=== PATIENT | female | born 1985 | race Caucasian/White ===

== ENCOUNTER 2022-03-23 15:11 | Observation (INO) | payer OTHER ==
[2022-03-23] MEDS ORDERED: ASPIRIN 81 MG PO STA (15:22)
--- NOTE | 2022-03-23 15:37 | ED ---
Chest Pain HPI - General Chief Complaint: Chest Pain Stated Complaint: chest pain Time Seen by Provider: 03/23/22 15:11 Source: patient, EMS, RN notes reviewed Mode of arrival: EMS Limitations: no limitations - History of Present Illness Initial Comments: 36-year-old female with a family history of heart disease but no personal history who states she had an episode prior to arrival of burning midsternal chest pain sweats with nausea vomiting also palpitations. She was brought in by EMS from local care home. She's been incarcerated for 30 days. She has any drugs or alcohol use prior to this. She is a former smoker. Patient states that she is feeling somewhat improved this time per paramedics she did have what appeared to be bigeminy with the patient is not familiar with ever been diagnosed with in the past. MD Complaint: chest pain, other - Related Data Home Medications Medication Instructions Recorded Confirmed Aspirin EC [Ecotrin Low Dose] 81 mg PO DAILY 03/23/22 03/23/22 Metoprolol Tartrate [Lopressor] 12.5 mg PO BID 03/23/22 03/23/22 clindamycin HCL 300 mg PO TID 03/23/22 03/23/22 lisinopriL [Zestril] 10 mg PO HS 03/23/22 03/23/22 Allergies Allergy/AdvReac Type Severity Reaction Status Date / Time codeine Allergy Swelling Verified 03/23/22 16:18 levofloxacin [From Levaquin] Allergy Unknown Verified 03/23/22 16:18 Penicillins Allergy Rash/Hives Verified 03/23/22 16:18 Sulfa (Sulfonamide Allergy Rash/Hives Verified 03/23/22 16:18 Antibiotics) Review of Systems ROS Statement: Those systems with pertinent positive or pertinent negative responses have been documented in the HPI. ROS Other: All systems not noted in ROS Statement are negative. Past Medical History Past Medical History: No Reported History History of Any Multi-Drug Resistant Organisms: None Reported Past Surgical History: Cholecystectomy Past Psychological History: ADD/ADHD, Anxiety, Depression Smoking Status: Former smoker Past Alcohol Use History: None Reported Past Drug Use History: Opiates General Exam - General Exam Comments Initial Comments: This is a well-developed well-nourished awake alert oriented 4 female Limitations: no limitations General appearance: alert, anxious Head exam: Present: atraumatic, normocephalic, normal inspection Eye exam: Present: normal appearance, PERRL, EOMI. Absent: scleral icterus, conjunctival injection, periorbital swelling ENT exam: Present: normal exam, mucous membranes moist Neck exam: Present: normal inspection, full ROM, other (No stridor JVD or bruits). Absent: tenderness, meningismus, lymphadenopathy Respiratory exam: Present: normal lung sounds bilaterally, chest wall tenderness (Tenderness palpation on the xiphoid and costal sternal margins no step-off or crepitation.). Absent: respiratory distress, wheezes, rales, rhonchi, stridor Cardiovascular Exam: Present: irregular rhythm. Absent: systolic murmur, diastolic murmur, rubs, gallop, clicks GI/Abdominal exam: Present: soft, normal bowel sounds. Absent: distended, tenderness, guarding, rebound, rigid Extremities exam: Present: normal inspection, full ROM, normal capillary refill. Absent: tenderness, pedal edema, joint swelling, calf tenderness Back exam: Present: normal inspection Neurological exam: Present: alert, oriented X3, CN II-XII intact Psychiatric exam: Present: normal affect, normal mood Skin exam: Present: warm, dry, intact, normal color. Absent: rash Course Vital Signs 03/23/22 15:13 Temperature 98.7 F Pulse Rate 83 Respiratory 18 Rate Blood Pressure 119/88 O2 Sat by Pulse 100 Oximetry Chest Pain MDM - MDM Imaging reviewed no acute findings. I did a long session with the patient regarding findings also with Dr. Wynn from the [facility] [place] [facility]. Patient will be admitted for inpatient evaluation treatment of chest pain Onset bigeminy cardiology will be consulted. Disposition Clinical Impression: Chest pain, Bigeminy Disposition: ADMITTED IP TO THIS HOSP Condition: Fair [facility]errals[facility] - 1-2 days Decision Date: 03/23/22 Decision Time: 17:30
--- NOTE | 2022-03-23 16:03 | XR ---
EXAMINATION TYPE: XR chest 2V DATE OF EXAM: 03/23/2022 COMPARISON: NONE HISTORY: Chest pain TECHNIQUE: 2 views FINDINGS: Heart and mediastinum are normal. Lungs are clear. Diaphragm is normal. Bony thorax is norm al. IMPRESSION: Normal chest.
[2022-03-23 16:10] LABS: Basophils # (A) 0.1 k/uL (0-0.2); Basophils % (A) 1 %; Eosinophils # (A) 0.3 k/uL (0-0.7); Eosinophils % (A) 3 %; HCT 37.6 % (34.0-46.0); HGB 12.2 gm/dL (11.4-16.0); Hypochromasia Slight; Lymphocytes # (A) 2.3 k/uL (1.0-4.8); Lymphocytes % (A) 21 %; MCH 28.3 pg (25.0-35.0); MCHC 32.4 g/dL (31.0-37.0); MCV 87.3 fL (80.0-100.0); Mean Platelet Volume 7.7; Monocytes # (A) 0.5 k/uL (0-1.0); Monocytes % (A) 4 %; Neutrophils # (A) 7.6 k/uL (1.3-7.7); Neutrophils % (A) 69 %; Platelet Count 438 k/uL (150-450); RDW 14.7 % (11.5-15.5); WBC 10.9 k/uL (3.8-10.6)
[2022-03-23 16:21] LABS: ALT 17 U/L (4-34); AST 29 U/L (14-36); African American GFR (CKD) >90 (>60 ml/min/1.73 sqM); Albumin 4.3 g/dL (3.5-5.0); Alkaline Phosphatase 50 U/L (38-126); Anion Gap 6 mmol/L; Blood Urea Nitrogen 13 mg/dL (7-17); Calcium 9.3 mg/dL (8.4-10.2); Carbon Dioxide 24 mmol/L (22-30); Chloride 106 mmol/L (98-107); Glucose 92 mg/dL (74-99); Lipase 184 U/L (23-300); Magnesium 2.1 mg/dL (1.6-2.3); Non-African American GFR(CKD) >90 (>60 ml/min/1.73 sqM); Sodium 136 mmol/L (137-145); Total Bilirubin 0.5 mg/dL (0.2-1.3); Total Protein 7.1 g/dL (6.3-8.2)
[2022-03-23 16:24] LABS: Partial Thromboplastin Time 23.4 sec (22.0-30.0); Prothrombin Time 10.5 sec (9.0-12.0)
[2022-03-23] MEDS ORDERED: NITROGLYCERIN SL TABS 0.4 MG TAB SUBLINGUAL PRN (17:43)
--- NOTE | 2022-03-23 18:19 | P.HPIM ---
History of Present Illness Chief Complaint: Chest pain and palpitations This is a very pleasant 36-year-old female who was brought to emergency [place] for evaluation of chest pain and palpitation Patient has no significant past medical history except hypertension and being on lisinopril. Patient was reporting retrosternal burning-like chest pain without radiation. Associated with some sweats and nausea no radiation of the pain. Last a few minutes. Also she's been experiencing some upper dictations. No particular provoking or alleviating factors for this. Patient stated that she's been having palpitations in the past and was prescribed metoprolol but she never took it. Patient stated that she was okay for a while but in the last few weeks she's been experiencing those. No syncopal episodein his leg swelling no shortness of breath no cough no fever. Patient is currently in the local care home the last 1 month. Denies any alcohol drug use. Has extensive family history of cardiac diseases but no personal history of this. She was never had a stress test echo or cardiological evaluation. She was referred to pharmacy clinical specialist in the past due to palpitations but never followed up. Here her vital signs stable EKG with some bigeminy otherwise no acute changes; electrolyte panel normal d-dimer normal troponin 1 normal chest x-ray without acute changes. Past Medical History Past Medical History: No Reported History History of Any Multi-Drug Resistant Organisms: None Reported Past Surgical History: Cholecystectomy Past Psychological History: ADD/ADHD, Anxiety, Depression Smoking Status: Former smoker Past Alcohol Use History: None Reported Past Drug Use History: Opiates Medications and Allergies Home Medications Medication Instructions Recorded Confirmed Type Aspirin EC [Ecotrin Low Dose] 81 mg PO DAILY 03/23/22 03/23/22 History Metoprolol Tartrate [Lopressor] 12.5 mg PO BID 03/23/22 03/23/22 History clindamycin HCL 300 mg PO TID 03/23/22 03/23/22 History lisinopriL [Zestril] 10 mg PO HS 03/23/22 03/23/22 History Allergies Allergy/AdvReac Type Severity Reaction Status Date / Time codeine Allergy Swelling Verified 03/23/22 16:18 levofloxacin [From Levaquin] Allergy Unknown Verified 03/23/22 16:18 Penicillins Allergy Rash/Hives Verified 03/23/22 16:18 Sulfa (Sulfonamide Allergy Rash/Hives Verified 03/23/22 16:18 Antibiotics) Physical Exam Vitals: Vital Signs Temp Pulse Resp BP Pulse Ox 03/23/22 15:13 98.7 F 83 18 119/88 100 Intake and Output 03/23/22 03/23/22 03/23/22 06:59 14:59 22:59 Other: Weight 74.843 kg Awake alert oriented 3, no acute distress Head and neck: Anicteric sclera, extraocular movements intact, no facial asymmetry, oropharyngeal mucosa is moist without any lesions, neck is supple without rigidity, no neck masses or neck vein distention Heart: Regular rhythm and rate, S1, S2; no murmurs rubs or gallops Lungs: Breath sounds present bilateral, no wheezing, rhonchi or crackles Abdomen: Bowel sounds present throughout, abdomen is soft, nontender, nondistended, no involuntary guarding, no hernias or organomegaly, no flank tenderness Extremities: No peripheral edema, no cyanosis, warm well perfused with palpable dorsalis pedis pulses bilateral and good capillary refill, without joint swelling or deformities Muscular skeletal: No joint swelling Skin: No rashes Neurological: No focal deficits awake alert oriented 3 Results CBC & Chem 7: 03/23/22 15:46 03/23/22 15:46 Labs: Abnormal Lab Results - Last 24 Hours (Table) 03/23/22 03/23/22 Range/Units 15:46 15:46 WBC 10.9 H (3.8-10.6) k/uL Sodium 136 L (137-145) mmol/L Assessment and Plan Assessment: #Atypical chest pain EKG with some bigeminy, normal troponin 1, normal d-dimer, chest x-ray normal Extensive family history of coronary artery disease Obtain echocardiogram, keep on telemetry Repeat troponin Cardiology consultation #Palpitations EKG with some bigeminy Patient has history of this and was referred to cardiology but never followed up Continue metoprolol Workup as above Keep on telemetry Ordered TSH Drug screen DVT prophylaxis: Subcu heparin Admitted under observation
[2022-03-23] MEDS ORDERED: lisinopriL 10 MG TAB PO SCH (21:00)
[2022-03-23] MEDS: METOPROLOL TARTRATE 12.5 MG TAB PO SCH (21:06)
[2022-03-23] MEDS: traZODone HCL 50 MG TAB PO SCH (21:06)
[2022-03-23] MEDS ORDERED: ONDANSETRON 4 MG/2 ML VIAL IVP STA (22:20)
[2022-03-23] MEDS: CLINDAMYCIN 150 MG CAP PO SCH (22:34)
[2022-03-24] MEDS ORDERED: ASPIRIN 325 MG TAB PO SCH (09:00)
[2022-03-24 09:14] LABS: Chol/HDL Ratio 4.12 Ratio; LDL Cholesterol,Calculated 101.3 mg/dL (0.0-131.0)
[2022-03-24] MEDS: METOPROLOL TARTRATE 12.5 MG TAB PO SCH ×2 (09:29→21:35)
--- NOTE | 2022-03-24 09:34 | P.CRDCN ---
History of Present Illness History of present illness: This is Dr. 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 and has been treated with low-dose beta blockers Patient on clindamycin 300 mg 3 times a day at home, unclear about the reason at this time Also on Zestril 10 mg daily at bedtime and metoprolol 12.5 mg by mouth twice a day Likely history of hypertension, patient on lisinopril Not taking metoprolol that was prescribed by her PCP Normal cardiac enzymes [address] segment abnormalities on EKG Asymptomatic when I examined her Mildly elevated triglycerides of 213 Normal TSH PLAN: IV fluids Stop aspirin Reduce the dose of lisinopril to 5 mg by mouth daily as an outpatient Hold off on lisinopril for now and watch her blood pressure for the next 24 hour s She may eat a normal diet 2-D echo and Doppler study today HPI For the last 5 months, the patient has been complaining of palpitations and dizzy spells She came to the emergency brought in from the local group home She been incarcerated for 30 days According to the note she complained of midsternal chest discomfort Swets nausea vomiting and palpitations She stated she was dizzy lightheaded and near syncopal ROS: No fever chills or rigors, no cough, phlegm or expectoration, no nausea, vomiting or diarrhea, no hematuria, dysuria, no musculoskeletal complaints, no strokes or seizures, no skin lesions. EXAMINATION: Blood pressure 91/62 mmHg then 123/87 Heart sounds are irregular Sounds are clear No murmurs No JVD Patient looks very comfortable and is not in any distress at all while having bigeminal PVCs REVIEW OF LABS, ECG & MEDICAL DATA Chest x-ray normal Twelve-lead EKG shows sinus mechanism with ventricular bigeminy Right ventricular outflow tract PVCs rsr" PVC morphology in lead 1 Upright in the inferior leads, tall Transition between V3 and V4 Extremely subtle notching at the end of the normal QRS in lead V1 and V2 No clear-cut QRS fractionation in the normal QRS Labs reviewed D-dimer normal Electrolytes normal Troponins normal 3 TSH 2.3 LDL 101, total 190, Triglycerides 213 Normal Renal Function White Count of the Upper Limits of Normal but Afebrile Past Medical History Past Medical History: No Reported History History of Any Multi-Drug Resistant Organisms: None Reported Past Surgical History: Cholecystectomy Past Psychological History: ADD/ADHD, Anxiety, Depression Smoking Status: Former smoker Past Alcohol Use History: None Reported Past Drug Use History: Opiates Medications and Allergies Home Medications Medication Instructions Recorded Confirmed Type Aspirin EC [Ecotrin Low Dose] 81 mg PO DAILY 03/23/22 03/23/22 History Metoprolol Tartrate [Lopressor] 12.5 mg PO BID 03/23/22 03/23/22 History clindamycin HCL 300 mg PO TID 03/23/22 03/23/22 History lisinopriL [Zestril] 10 mg PO HS 03/23/22 03/23/22 History Allergies Allergy/AdvReac Type Severity Reaction Status Date / Time codeine Allergy Swelling Verified 03/23/22 16:18 levofloxacin [From Levaquin] Allergy Unknown Verified 03/23/22 16:18 Penicillins Allergy Rash/Hives Verified 03/23/22 16:18 Sulfa (Sulfonamide Allergy Rash/Hives Verified 03/23/22 16:18 Antibiotics) Physical Exam Vitals: Vital Signs Temp Pulse Pulse Resp BP BP Pulse Ox 03/24/22 08:16 98.3 F 83 16 103/65 98 03/24/22 04:40 97.8 F 81 18 91/62 97 03/23/22 23:16 87 03/23/22 20:47 90 18 123/87 98 03/23/22 15:13 98.7 F 83 18 119/88 100 Intake and Output 03/23/22 03/24/22 03/24/22 22:59 06:59 14:59 Other: # Voids 1 Weight 74.843 kg Results 03/23/22 15:46 03/23/22 15:46 Cardiac Enzymes 03/23/22 03/23/22 03/23/22 Range/Units 15:46 15:46 18:03 AST 29 (14-36) U/L Troponin I <0.012 0.021 (0.000-0.034) ng/mL 03/23/22 Range/Units 21:46 AST (14-36) U/L Troponin I 0.021 (0.000-0.034) ng/mL Coagulation 03/23/22 Range/Units 15:46 PT 10.5 (9.0-12.0) sec APTT 23.4 (22.0-30.0) sec Lipids 03/23/22 Range/Units 15:46 Triglycerides 213.00 H (0.00-149.00) mg/dL Cholesterol 190.00 (0.00-200.00) mg/dL HDL Cholesterol 46.10 (40.00-60.00) mg/dL Cholesterol/HDL Ratio 4.12 Ratio CBC 03/23/22 Range/Units 15:46 WBC 10.9 H (3.8-10.6) k/uL RBC 4.30 (3.80-5.40) m/uL Hgb 12.2 (11.4-16.0) gm/dL Hct 37.6 (34.0-46.0) % Plt Count 438 (150-450) k/uL Comprehensive Metabolic Panel 03/23/22 Range/Units 15:46 Sodium 136 L (137-145) mmol/L Potassium 5.0 (3.5-5.1) mmol/L Chloride 106 (98-107) mmol/L Carbon Dioxide 24 (22-30) mmol/L BUN 13 (7-17) mg/dL Creatinine 0.68 (0.52-1.04) mg/dL Glucose 92 (74-99) mg/dL Calcium 9.3 (8.4-10.2) mg/dL AST 29 (14-36) U/L ALT 17 (4-34) U/L Alkaline Phosphatase 50 (38-126) U/L Total Protein 7.1 (6.3-8.2) g/dL Albumin 4.3 (3.5-5.0) g/dL Current Medications Generic Name Dose Route Start Last Admin Trade Name Freq PRN Reason Stop Dose Admin Clindamycin HCl 300 mg 03/23/22 22:00 03/23/22 22:34 Clindamycin 150 Mg Cap PO Not Given TID WALLACE Metoprolol Tartrate 12.5 mg 03/23/22 21:00 03/24/22 09:29 Metoprolol Tartrate 12.5 Mg Tab PO 12.5 mg BID WALLACE Administration Trazodone HCl 50 mg 03/23/22 21:00 03/23/22 21:06 Trazodone Hcl 50 Mg Tab PO 50 mg HS WALLACE Administration Intake and Output 03/23/22 03/24/22 03/24/22 22:59 06:59 14:59 Other: # Voids 1 Weight 74.843 kg 03/23/22 15:46 03/23/22 15:46
--- NOTE | 2022-03-24 10:17 | CA ---
Transthoracic Echo Report Name: Reshma Agarwal Age: 36 Gender: F : 1985 Exam Date: 03/24/2022 08:11 Exam Location: [facility] Ht (in): 64 Wt (lb): 165 Ordering Physician: Freddy Forman MD Attending/Referring Phys: Pre School Manager Marina Calderon RDCS Procedure CPT: Indications: Chest pain, new onset bigeminy Cardiac Hx: Technical Quality: Fair Contrast 1: Total Dose (mL): Contrast 2: Total Dose (mL): MEASUREMENTS (Male / Female) Normal Values 2D ECHO LV Diastolic Diameter PLAX 3.5 cm 4.2 - 5.9 / 3.9 - 5.3 cm LV Systolic Diameter PLAX 2.3 cm IVS Diastolic Thickness 1.4 cm 0.6 - 1.0 / 0.6 - 0.9 cm LVPW Diastolic Thickness 1.5 cm 0.6 - 1.0 / 0.6 - 0.9 cm LV Relative Wall Thickness 0.8 RV Internal Dim ED PLAX 2.5 cm LA Volume 30.6 cm??? 18 - 58 / 22 - 52 cm??? M-MODE Aortic Root Diameter MM 2.9 cm LA Systolic Diameter MM 3.3 cm LA Ao Ratio MM 1.1 AV Cusp Separation MM 1.5 cm DOPPLER AV Peak Velocity 123.1 cm/s AV Peak Gradient 6.1 mmHg LVOT Peak Velocity 75.7 cm/s LVOT Peak Gradient 2.3 mmHg MV Area PHT 2.7 cm??? Mitral E Point Velocity 54.9 cm/s Mitral A Point Velocity 76.5 cm/s Mitral E to A Ratio 0.7 MV Deceleration Time 285.9 ms MV E' Velocity 7.2 cm/s Mitral E to MV E' Ratio 7.7 TR Peak Velocity 209.1 cm/s TR Peak Gradient 17.5 mmHg Right Ventricular Systolic Press 22.5 mmHg FINDINGS Left Ventricle Moderately increased left ventricular wall thickness. Normal left ventricular systolic function with no obvious regional wall motion abnormalities. Left ventricular ejection fraction is estimated at 55-60 %. Right Ventricle Normal right ventricular size and function. Right ventricular systolic pressure within normal limits. Right Atrium Normal right atrial size. Left Atrium Normal left atrial size. No evidence for an atrial septal defect. Mitral Valve Structurally normal mitral valve. No evidence for mitral valve prolapse. No mitral stenosis. No mitral regurgitation. Aortic Valve Trileaflet aortic valve. No aortic valve stenosis or regurgitation. Tricuspid Valve Structurally normal tricuspid valve. Mild tricuspid regurgitation. Pulmonic Valve Structurally normal pulmonic valve. Trace pulmonic regurgitation. Pericardium No pericardial effusion. Aorta Normal size aortic root and proximal ascending aorta. CONCLUSIONS Normal LV size and systolic function with left ventricle hypertrophy, mild Right ventricular size and function is normal Previewed by: Dr. Kb Sanon MD (Electronically Signed) Final Date: 24 March 2022 10:16
[2022-03-24] MEDS: CLINDAMYCIN 150 MG CAP PO SCH ×3 (10:51→21:35)
[2022-03-24] MEDS ORDERED: MAG HYDROX/AL HYDROX/SIMETH 30 ML, HYOSCYAMINE ELIXIR 10 ML, LIDOCAINE VISCOUS 2% 10 ML PO ONE ×3 (11:22)
[2022-03-24 11:58] LABS: Amphetamine Screen,Urine Not Detected (NotDetected); Barbiturate Screen,Urine Not Detected (NotDetected); Benzodiazepines Screen,Urine Not Detected (NotDetected); Cocaine Screen,Urine Not Detected (NotDetected); Methadone Screen, Urine Not Detected (NotDetected); Opiate Screen,Urine Not Detected (NotDetected); Oxycodone Screen, Urine Not Detected (NotDetected); Phencyclidine Screen,Urine Not Detected (NotDetected); Tricyclic Antidepressant,Urine Not Detected (NotDetected); Urn Cannabinoid Scrn Not Detected (NotDetected)
[2022-03-24] MEDS: FENOFIBRATE 160 MG TAB PO SCH (12:28)
--- NOTE | 2022-03-24 16:32 | P.PN ---
Subjective Progress Note Date: 03/24/22 Hospital course: Patient is a 36-year-old female with a past medical history of frequent PVCs/bigeminy on low-dose beta lex metoprolol and hypertension. She presented to the emergency department via EMS in custody of [facility] on 03/23/22 with a chief complaint of midsternal burning/chest pain accompanied by nausea, diaphoresis, vomiting, and palpitations. She underwent full evaluation in the emergency department. EKG revealed sinus rhythm with frequent PVCs bigeminyat 87 bpm.CBC unremarkable with the exception of mild leukocytosis with WBC count of 10.9. CMP unremarkable. Troponin negative at less than 0.012. Patient admitted under our services to observation unit with consultation to cardiology. troponins trended overnightresulting at less than 0.012, 0.021, and 0.021. Lipid profile resulting with elevated triglycerides at 213 and VLDL of 42.60. Urine drug screen negative. Awaiting urine hCG results.patient continues to report burning to midsternal chest, GI cocktail administered 1 dose in which patient reports full resolution of previously reported burning pain however she reports pain remains to midsternal chest described as a dull ache almost like a bruise. Cardiology adjusting patient's medications decreasing lisinopril to 5 mg daily and recommending patient's BP and telemetry be monitored for an additional 24 hours. Physical exam: Vital signs reviewed and stable. General: Nontoxic, no distress and appears stated age. Derm: Skin warm and dry, normal coloration for ethnicity. Head: Atraumatic, normocephalic and symmetric. Eyes: EOMs intact, no lid lag, and anicteric sclera Mouth: no lip lesions, mucus membranes moist Cardiovascular: regular rate and rhythm with normal S1S2, no murmur, positive posterior tibial pulses bilaterally, and cap refill < 2 seconds. Lungs: Respirations even, regular, and unlabored on room air. Lungs CTA bi laterally, no rhonchi, no rales, no wheezing, and no accessory muscle usage. Abdominal: soft, nontender to palpation, no guarding, no appreciable organomegaly Ext: ROM intact. No gross muscle atrophy, no edema, no contractures Neuro: Speech clear, face symmetrical and CN II-XII grossly intact with no noted focal neuro deficits Psych: Alert and oriented to person, place, time, and situation. Appropriate and pleasant affect. Assessment and Plan of Care: Chest pain with palpitations, bigeminy Hypertension -Cardiology following, reports patient has a history of bigeminy and was started on metoprolol 12.5 mg twice daily. Cardiology decreasing patient's lisinopril and recommending patient's BP and telemetry be monitored for an additional 24 hours prior to discharge. -Telemetry monitoring -Troponins negative -Cardiac diet -GI cocktail given which resulted in resolution of patient's previously reported burning sensation and patient started on Protonix 40 mg daily. -Lipid profile revealing elevated triglycerides of 213, patient started on fenofibrate. -Echocardiogram revealing normal EF of 55-60% with no significant valvular or structural abnormalities. CODE STATUS: Full code DVT prophylaxis: heparin Discussed with: patient, RN, and [facility] officer Anticipated discharge date: tomorrow morning Anticipated discharge place: released back into custody of [facility] officer A total of 33 minutes was spent on the care of this complex patient more than 50% of the time was spent in counseling and care coordination. Objective - Vital Signs Vital signs: Vital Signs Temp 98.3 F 03/24/22 08:16 Pulse 83 03/24/22 08:16 Resp 16 03/24/22 08:16 BP 103/65 03/24/22 08:16 Pulse Ox 98 03/24/22 08:16 FiO2 Intake & Output 03/23/22 03/24/22 03/24/22 18:59 06:59 18:59 Intake Total 240 Balance 240 Weight 74.843 kg Intake: Oral 240 Other: # Voids 1 - Labs CBC & Chem 7: 03/23/22 15:46 03/23/22 15:46 Labs: Abnormal Lab Results - Last 24 Hours (Table) 03/23/22 03/23/22 03/23/22 Range/Units 15:46 15:46 15:46 WBC 10.9 H (3.8-10.6) k/uL Sodium 136 L (137-145) mmol/L Triglycerides 213.00 H (0.00-149.00) mg/dL VLDL Cholesterol, Calc 42.60 H (5.00-40.00) mg/dL
[2022-03-24] MEDS: HEPARIN SODIUM,PORCINE/PF 5,000 UNIT/0.5 ML SYRINGE SQ SCH ×2 (16:47→21:35)
[2022-03-24] MEDS: traZODone HCL 50 MG TAB PO SCH (21:35)
[2022-03-25] MEDS ORDERED: CALCIUM CARBONATE 500 MG CHEWABLE PO PRN (06:42)
[2022-03-25] MEDS ORDERED: PANTOPRAZOLE 40 MG TABLET PO SCH (07:30)
[2022-03-25 07:42] VITALS: RESP 14
[2022-03-25] MEDS: CLINDAMYCIN 150 MG CAP PO SCH ×2 (08:11→16:55)
[2022-03-25] MEDS: FENOFIBRATE 160 MG TAB PO SCH (08:11)
[2022-03-25] MEDS: HEPARIN SODIUM,PORCINE/PF 5,000 UNIT/0.5 ML SYRINGE SQ SCH ×2 (08:11→16:51)
[2022-03-25 08:13] LABS: Glucose,Whole Blood 99 mg/dL (70-110)
--- NOTE | 2022-03-25 11:25 | P.PN ---
Subjective This is a 36 year old female with a past medical history of hypertension. She does not follow with a chief pharmacist. We are asked to see in consultation for chest pain. Patient is seen and examined at beside, no acute distress. She presents with palpitations and some dizzy spells. She been incarcerated for 30 days. She has been having some burning chest discomfort, nausea and vomiting. She has been having frequent PVCs. She denies any further chest pain. She denies any shortness of breath, lightheadedness or dizziness. Continues to have some nausea and vomiting. Echocardiogram EF 5560%, no significant wall motion abnormalities, mild LVH. Vital signs are stable. GENERAL: Well-appearing, well-nourished and in no acute distress. NECK: Supple without JVD or thyromegaly. LUNGS: Breath sounds clear to auscultation bilaterally. Respiration equal and unlabored. No wheezes, rales or rhonchi. HEART: Regular rate and rhythm without murmurs, rubs or gallops. S1 and S2 heard. EXTREMITIES: Normal range of motion, no edema. No clubbing or cyanosis. Peripheral pulses intact. 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 Reduce the dose of lisinopril to 5 mg by mouth daily as an outpatient Continue metoprolol tartrate 12.5mg BID If stress test is negative, no further inpatient testing at this time from a cardiology perspective Follow up outpatient with Dr. Sanon Nurse Practitioner note has been reviewed, I agree with a documented findings and plan of care. Patient was seen and examined. Objective - Vital Signs Vital signs: Vital Signs Temp 98.5 F 03/25/22 08:13 Pulse 58 L 03/25/22 08:13 Resp 14 03/25/22 08:13 BP 151/87 03/25/22 08:13 Pulse Ox 98 03/25/22 08:13 FiO2 Intake & Output 03/24/22 03/25/22 03/25/22 18:59 06:59 18:59 Intake Total 720 240 Balance 720 240 Weight 74.843 kg Intake: Oral 720 240 Other: # Voids 1 1 - Labs CBC & Chem 7: 03/23/22 15:46 06/19/22 15:46
[2022-03-25] MEDS: METOPROLOL TARTRATE 12.5 MG TAB PO SCH (11:53)
[2022-03-25 13:44] VITALS: BP 107/61; PULSE 56; TEMP 98.2
--- NOTE | 2022-03-25 15:50 | CA ---
Exercise Stress Test Report Name: Reshma Agarwal Exam Date: 03/25/2022 11:22 Exam Location: [place] Stress Ht (in): Wt (lb): BSA: Ordering Phys: Jenn Michelle Referring Phys: ,, Technologist: Dickson Le Age: 36 Gender: F : 1985 Procedure CPT: Indications: Chest Pain ICD-10 Codes: Patient History: chest pain, Shortness of breath, Palpitations Medications: Meds past 24 hrs: Pretest Chest Pain: STRESS TEST Douglas Protocol Exercise Duration (min:sec): 07:[address] Depressions (mm): Angina Score: L[place]o Score: Resting HR (bpm): 96 Peak HR (bpm): 170 Resting BP (mmHg): 120 / 76 Peak BP (mmHg): 146 / 92 MPHR: 182 Target HR: 155 % MPHR: 93 METS: 8.9 Total Dose: Peak Dose: Atropine: Double Product: 77803 BP Response: Stress Termination: Chest pain Stress Symptoms: Chest paint typical of angina occurred (severity _7, _3 min duration) , Chest paint typical of angina occurred (severity _9_, _1_ min duration) Stress Summary: ECG ANALYSIS Resting ECG: Stress ECG: CONCLUSIONS 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 She had chest discomfort during the stress test without any ECG evidence of ischemia. No ST segment abnormalities Normal blood pressure response Frequent PVCs from RVOT Increase in the RVOT frequency to a bigeminal rhythm in the initial phases of exercise Suppression of PVCs at peak exercise Return of bigeminal PVCs during recovery Impression Mild suppression of RVOT PVCs during peak exercise High PVC burden Dr. Kb Sanon MD (Electronically Signed) Final Date: 25 March 2022 15:49
--- NOTE | 2022-03-25 17:55 | P.DS ---
Providers Date of admission: 03/23/22 17:46 Expected date of discharge: 03/25/22 Attending physician: Alex Villatoro MD Consults: 03/23/22 17:43 Consult Physician Urgent Consulting Provider: Gary aRphael Consult Reason/Comments: Chest pain, new onset bigeminy Do you want consulting provider notified?: Yes Primary care physician: [facility] Hospital Course: Discharge Diagnosis: Chest pain with palpitations, acute coronary event ruled out. Frequent PVCs/bigeminy on low-dose beta lex metoprolol Hypertension, lisinopril discontinued. Continue to monitor vital signs and continue low-dose metoprolol 12.5 mg twice daily. Hospital Course: Patient is a 36-year-old female with a past medical history of frequent PVCs/bigeminy on low-dose beta lex metoprolol and hypertension. She presented to the emergency department via EMS in custody of MD on 03/23/22 with a chief complaint of midsternal burning/chest pain accompanied by nausea, diaphoresis, vomiting, and palpitations. She underwent full evaluation in the emergency department. EKG revealed sinus rhythm with frequent PVCs bigeminyat 87 bpm.CBC unremarkable with the exception of mild leukocytosis with WBC count of 10.9. CMP unremarkable. Troponin negative at less than 0.012. Patient admit cristhian under our services to observation unit with consultation to cardiology. troponins trended overnightresulting at less than 0.012, 0.021, and 0.021. Lipid profile resulting with elevated triglycerides at 213 and VLDL of 42.60. Patient started on fenofibrate. Urine drug screen negative. Patient reported to have burning to midsternal chest, GI cocktail administered 1 dose in which patient reports full resolution of previously reported burning pain however she reports pain remains to midsternal chest described as a dull ache almost like a bruise. Cardiology adjusting patient's medications decreasing lisinopril to 5 mg daily and recommending patient's BP and telemetry be monitored for an additional 24 hours. Cardiology took patient for cardiac stress test secondary to her reports of persistent chest burning/discomfort. EKGs repeated and unchanged. Echocardiogram revealing normal EF 55-60% with no reported valvular or structural abnormalities. Stress test was negative revealing frequent RVOT PVCs often in a bigeminal pattern which is patient's baseline with no EKG abnormalities noted other than this, patient exercised on a Douglas protocol for 7 minutes achieving a peak heart rate of 170 minutes in which she reported having chest discomfort but showed no EKG evidence of ischemia or ST segment abnormalities and maintained a normal blood pressure throughout stress test. Patient has been cleared by cardiology for discharge at this time. Patient is medically stable for discharge at this time. Physical exam: Vital signs reviewed and stable. General: Nontoxic, no distress and appears stated age. Derm: Skin warm and dry, normal coloration for ethnicity. Head: Atraumatic, normocephalic and symmetric. Eyes: EOMs intact, no lid lag, and anicteric sclera Mouth: no lip lesions, mucus membranes moist Cardiovascular: regular rate and rhythm with normal S1S2, no murmur, positive posterior tibial pulses bilaterally, and cap refill < 2 seconds. Lungs: Respirations even, regular, and unlabored on room air. Lungs CTA bilaterally, no rhonchi, no rales, no wheezing, and no accessory muscle usage. Abdominal: soft, nontender to palpation, no guarding, no appreciable organomegaly Ext: ROM intact. No gross muscle atrophy, no edema, no contractures Neuro: Speech clear, face symmetrical and CN II-XII grossly intact with no noted focal neuro deficits Psych: Alert and oriented to person, place, time, and situation. Appropriate and pleasant affect. A total of 33 minutes of time were spent preparing this complex discharge summary. Pt was discharged on 03/25/22 at 5:43 PM. Patient Condition at Discharge: Stable Plan - Discharge Summary Discharge Rx Participant: No New Discharge Prescriptions: New Fenofibrate [Lofibra] 160 mg PO DAILY 30 Days #30 tab Pantoprazole [Protonix] 40 mg PO DAILY 30 Days #30 tab Continue Metoprolol Tartrate [Lopressor] 12.5 mg PO BID Aspirin EC [Ecotrin Low Dose] 81 mg PO DAILY clindamycin HCL 300 mg PO TID Discontinued lisinopriL [Zestril] 10 mg PO HS Discharge Medication List Aspirin EC [Ecotrin Low Dose] 81 mg PO DAILY 03/23/22 [History] Metoprolol Tartrate [Lopressor] 12.5 mg PO BID 03/23/22 [History] clindamycin HCL 300 mg PO TID 03/23/22 [History] Fenofibrate [Lofibra] 160 mg PO DAILY 30 Days #30 tab 03/25/22 [Rx] Pantoprazole [Protonix] 40 mg PO DAILY 30 Days #30 tab 03/25/22 [Rx] Follow up Appointment(s)/Referral(s): Kb Sanon MD [STAFF PHYSICIAN] - 2 Weeks [facility] [Primary Care Provider] - 1-2 days Activity/Diet/Wound Care/Special Instructions: Activity: As tolerated. Take breaks as needed. Diet: Heart healthy and carb consistent diet. Avoid salts, or foods with hidden salts such as canned or boxed foods and frozen dinners. Extra salt makes your heart work harder and traps the fluid in your body for longer. Special Instructions: Please take all medications as directed. At this time you are medically cleared to be returned to intermediate in custody of [facility] officer. Discharge Disposition: HOME SELF-CARE
== END 2022-03-25 18:23 | disposition home or self-care (01) ==
LOC: EC 15:11 → 6NMEDSUR 17:46
PROVIDERS: ADMIT Hospitalist; ATTEND Hospitalist
DX: R07.89 Other chest pain (principal); I47.2 Ventricular tachycardia; I49.3 Ventricular premature depolarization; R00.8 Other abnormalities of heart beat; I10 Essential (primary) hypertension; E78.1 Pure hyperglyceridemia; R11.2 Nausea with vomiting, unspecified; R61 Generalized hyperhidrosis; D72.829 Elevated white blood cell count, unspecified; F32.A Depression, unspecified; F41.9 Anxiety disorder, unspecified; F90.9 Attention-deficit hyperactivity disorder, unspecified type; Z91.14 Patient's other noncompliance with medication regimen; Z79.82 Long term (current) use of aspirin; Z79.899 Other long term (current) drug therapy; Z88.0 Allergy status to penicillin; Z88.1 Allergy status to other antibiotic agents; Z88.2 Allergy status to sulfonamides; Z88.5 Allergy status to narcotic agent; Z90.49 Acquired absence of other specified parts of digestive tract; Z87.891 Personal history of nicotine dependence; Z82.49 Family history of ischemic heart disease and other diseases of the circulatory system
CPT/HCPCS: 96372 ×2; 96374; 99285; 36415; 93005 ×2; 93017; 93306; 85379; 83880; 80061; 80053; 84443; 83690; 83735; 84484; 85025; 85610; 85730; 80306; 71046; G0378 ×3; J2405; J1644 ×2

== ENCOUNTER 2022-07-07 10:13 | Day surgery (SDC) | payer OTHER ==
[2022-07-03 15:55] VITALS: BMI 27.0
[2022-07-07] MEDS: SODIUM CHLORIDE 0.9% 1,000 ML IV SCH (11:05)
[2022-07-07 11:11] LABS: Basophils # (A) 0.1 k/uL (0-0.2); Basophils % (A) 1 %; Eosinophils # (A) 0.6 k/uL (0-0.7); Eosinophils % (A) 8 %; HCT 37.2 % (34.0-46.0); HGB 12.1 gm/dL (11.4-16.0); Hypochromasia Slight; Lymphocytes # (A) 2.8 k/uL (1.0-4.8); Lymphocytes % (A) 38 %; MCH 27.4 pg (25.0-35.0); MCHC 32.4 g/dL (31.0-37.0); MCV 84.4 fL (80.0-100.0); Mean Platelet Volume 7.9; Monocytes # (A) 0.4 k/uL (0-1.0); Monocytes % (A) 5 %; Neutrophils # (A) 3.3 k/uL (1.3-7.7); Neutrophils % (A) 46 %; Platelet Count 352 k/uL (150-450); RDW 14.2 % (11.5-15.5); WBC 7.2 k/uL (3.8-10.6)
[2022-07-07 11:42] LABS: African American GFR (CKD) >90 (>60 ml/min/1.73 sqM); Anion Gap 11 mmol/L; Blood Urea Nitrogen 16 mg/dL (7-17); Calcium 8.8 mg/dL (8.4-10.2); Carbon Dioxide 23 mmol/L (22-30); Chloride 104 mmol/L (98-107); Glucose 84 mg/dL (74-99); Non-African American GFR(CKD) >90 (>60 ml/min/1.73 sqM); Potassium 4.1 mmol/L (3.5-5.1); Sodium 138 mmol/L (137-145)
[2022-07-07] MEDS ORDERED: MIDAZOLAM 2 MG/2 ML VIAL ONE (11:44)
[2022-07-07] MEDS ORDERED: METOPROLOL TARTRATE 5 MG/5 ML VIAL IVP ONE (11:44)
[2022-07-07] MEDS ORDERED: CALCIUM CHLORIDE 100 MG/ML 10 ML SYRINGE ONE (11:44)
[2022-07-07] MEDS ORDERED: KETAMINE 10 MG/ML 20 ML VIAL ONE (11:44)
[2022-07-07] MEDS ORDERED: PROPOFOL 10 MG/ML 20 ML VIAL IV ONE (11:44)
[2022-07-07] MEDS ORDERED: fentaNYL (PF) 50 MCG/ML 2 ML AMP ONE (11:44)
[2022-07-07] MEDS ORDERED: ISOPROTERENOL 250 MCG/1.25 ML SYR IV ONE (11:44)
--- NOTE | 2022-07-07 12:04 | P.EPPROC ---
- EP Procedure Note Electrophysiology Procedure Note: Diagnosis Recurrent syncope Twelve-lead EKG Sinus rhythm normal [place] narrow QRS early repolarization abnormality inferolaterally Tilt table test per protocol Baseline blood pressure 134/68 mmHg Baseline heart rate 50 beats a minute Patient was tilted upright at an angle of 70 per protocol There was an immediate drop in blood pressure 221/71 mmHg Following that there was a gradual slow progressive drop in blood pressure to 100/58 mmHg Heart rate increased to 70 beats a minute The blood pressure dropped to 68 mmHg and he felt sick to his stomach, was sweaty and presyncopal When he was laid supine his blood pressure normalized 115/58 mmHg and heart rate went back to baseline Impression Twelve-lead EKG shows early repolarization with ST elevation 1.0-1.5 mm abnormality with notching Orthostatic hypotension syndrome with a gradually progressive drop in blood pressure associated with presyncope Minimal increase in heart rate, consistent with dysautonomic response
[2022-07-07] MEDS ORDERED: LIDOCAINE 1% INJ 10MG/ML (20 ML MDV) SQ ONE (12:13)
--- NOTE | 2022-07-07 15:51 | P.EPPROC ---
- EP Procedure Note Electrophysiology Procedure Note: Diagnosis Frequent PVCs, symptomatic History of hypertension Current smoker History of Dyslipidemia Final diagnosis Moderator band PVCs Status post successful ablation with a near perfect pacemap Details Patient was brought to the EP lab in a fasting state. Written informed consent was obtained prior to the procedure. The right and left groins were prepped and draped as a protocol Venous sheaths were placed in the right left femoral veins Catheters were placed in the high right atrium, His bundle area, coronary sinus and right ventricular apex and septum A full diagnostic EP study is performed on and off Isuprel Later IV calcium was administered IV metoprolol was administered after that Sinus cycle length 744 ms, FL interval 157 ms, QRS 93 and QT 388 ms AH 61 and HV 39 ms Sinus node recovery times at 540 ms were 721 and 663 ms VA Wenckebach block 470 ms Parahisian pacing was performed. Mustapha response is noted Isuprel was started wide open and then at 2 mics and then later 5 mics Ventricular extra stimulation was performed up to triple extrastimuli from the RV apex and septum Burst stimulation was performed from 500 ms down to 200 ms from 2 sites This was repeated off Isuprel No PVCs were noted in the Ambien state upon admission to the lab or during Isuprel or initial testing Thereafter IV calcium was administered 10 mL of calcium chloride Following that she had a flurry of PVCs with a left bundle branch block morphology and late transition in V5 Upright in lead 1 Biphasic QRS is in the inferior leads Intracardiac echocardiography was performed. Tricuspid annulus was identified Right ventricular mapped 3-D electro-anatomic mapping was performed Pace mapping was performed The best placed Suggested a greater than 92% concordance However on visual inspection the pacemaker was near perfect in terms of all the notches that matched almost perfectly This was mapped to the moderator band region just beyond the distal right bundle signal RF energy was applied from 30-40 W for 15 seconds each. High output pacing was performed from the site. Non-capture was noted Intracardiac echo was performed once again. No pericardial effusion The earliest site was exactly along the moderator band Catheters were removed. Vascade closure device was applied. Hemostasis was assured No acute complications QRS remained narrow. HV interval remained normal
[2022-07-07] MEDS ORDERED: ACETAMINOPHEN TAB 325 MG TAB PO PRN (15:53)
--- NOTE | 2022-07-07 15:58 | P.PRLE ---
RE: Reshma Agarwal Dear LilliamAnnalisafanny Justice has frequent PVCs which are quite symptomatic she underwent a diagnostic EP study However despite a very detailed study including high-dose Isuprel she did not have any spontaneous or induced PVCs initially Thereafter I give IV calcium 10 mL of calcium chloride and following that she had a flurry of PVCs from the right ventricule/ moderator band This was successfully mapped to the moderator band and successfully ablated If in the future she has PVCs of different morphologies such as from the outflow tract, as I had initially suspected, I would select a premenstrual week for ablation. This PVC originally from the mid right ventricle in the region of the moderator band which carries the right bundle to the RV free wall She tolerated the procedure well without any acute complications A 12-lead EKG post ablation was normal Thank you for entrusting me with the care of the patient Warm regards Sincerely Kb Sanon
[2022-07-07] MEDS ORDERED: ACETAMINOPHEN IV (For NPO) 1,000 MG in EMPTY BAG 1 BAG IVPB ONE (16:45)
[2022-07-07] MEDS: LACTATED RINGERS 1,000 ML IV SCH (20:05)
[2022-07-07] MEDS ORDERED: ATORVASTATIN 40 MG TAB PO SCH (21:00)
[2022-07-08] MEDS: LACTATED RINGERS 1,000 ML IV SCH (03:44)
[2022-07-08] MEDS: SODIUM CHLORIDE 0.9% 1,000 ML IV SCH (03:44)
[2022-07-08 08:55] VITALS: BP 94/59; PULSE 81; RESP 12; TEMP 98
[2022-07-08] MEDS ORDERED: ASPIRIN 81 MG PO SCH (09:00)
[2022-07-08] MEDS ORDERED: lisinopriL 5 MG TAB PO SCH (09:00)
--- NOTE | 2022-07-08 09:34 | P.DS ---
Providers Attending physician: Kb Sanon Primary care physician: [facility] Hospital Course: Patient is resting comfortably in bed. She's been walking around the room and up to the bathroom Denies any chest discomfort dizziness or lightheadedness She states that she feels a lot better and does not have any heavy sensation in her chest as she did before the ablation Telemetry does not show any PVCs Twelve-lead EKG shows sinus mechanism normal ST segments On examination her blood pressure is 94/59 mmHg pulse rate in the 80s and 90s afebrile Heart sounds S1 and S2 are normal Breath sounds are clear Extremities warm no edema Impression PVCs originating from the moderator band During the EP study infrequent PVCs were noted A flurry of PVCs were noted after giving IV calcium chloride These PVCs of mapped to the moderator band in the right ventricle Successful focal ablation was performed with non-capture at that site The ablation site was carefully identified on intracardiac echo on the moderator band Plan Stop metoprolol Continue lisinopril 5 g by mouth daily Adequate hydration May go back to work on Follow-up in the office in about 2 weeks Patient Condition at Discharge: Stable Plan - Discharge Summary Discharge Rx Participant: Yes New Discharge Prescriptions: Discontinued RX: Metoprolol Tartrate [Lopressor] 12.5 mg PO BID No Action Zantac-360 (Unknown Dose) 1 tab PO DIRECTED PRN PRN Reason: Heartburn RX: Aspirin EC [Ecotrin Low Dose] 81 mg PO DAILY lisinopriL [Zestril] 5 mg PO DAILY Buprenorphine-Nalox 8-2 mg Tab [Suboxone 8-2 mg Tab] 0.5 tab SUBLINGUAL DAILY Atorvastatin [Lipitor] 40 mg PO HS Discharge Medication List RX: Aspirin EC [Ecotrin Low Dose] 81 mg PO DAILY 03/23/22 [History] Atorvastatin [Lipitor] 40 mg PO HS 07/03/22 [History] Buprenorphine-Nalox 8-2 mg Tab [Suboxone 8-2 mg Tab] 0.5 tab SUBLINGUAL DAILY 07/03/22 [History] Zantac-360 (Unknown Dose) 1 tab PO DIRECTED PRN 07/03/22 [History] lisinopriL [Zestril] 5 mg PO DAILY 07/03/22 [History] Follow up Appointment(s)/Referral(s): Kb Sanon MD [STAFF PHYSICIAN] - 1 Week (Follow-up with Ximena Tom in 1 week) Activity/Diet/Wound Care/Special Instructions: Post EP study - Ablation instructions 1. Keep access sites dry for 2 days. 2. No heavy lifting or straining for 2 days. 3. Avoid bending the hips repeatedly for 2 days. 4. You may go up and down stairs slowly Call if the following is noted 1. Bleeding, increasing swelling or pain at the access sites. 2. Increasing chest discomfort, especially upon taking a deep breath. 3. Increasing shortness of breath, at rest or with exertion. 4. Undue cough / phlegm 5. Difficulty or pain while swallowing. 6. Pain or change in color in the extremities. 7. Fever, chills, rigors. 8. Increasing headache or neurologic symptoms. 9. Dizziness, fainting, palpitations Stop metoprolol Discharge Disposition: HOME SELF-CARE
== END 2022-07-08 11:02 | disposition home or self-care (01) ==
LOC: CATHEP 10:13 → 6NMEDSUR 16:36 → CATHEP 07-08 11:02
PROVIDERS: ATTEND Internal Medicine Clinical Cardiac Electrophysiology
DX: I95.1 Orthostatic hypotension (principal); R55 Syncope and collapse; I44.7 Left bundle-branch block, unspecified; I10 Essential (primary) hypertension; E78.5 Hyperlipidemia, unspecified; I49.3 Ventricular premature depolarization; F17.200 Nicotine dependence, unspecified, uncomplicated; E78.1 Pure hyperglyceridemia; Z82.49 Family history of ischemic heart disease and other diseases of the circulatory system; Z88.0 Allergy status to penicillin; Z88.2 Allergy status to sulfonamides; Z88.8 Allergy status to other drugs, medicaments and biological substances; Z79.899 Other long term (current) drug therapy
CPT/HCPCS: 93623; 93653; 80048; 85025; 81025; C1759; C1894; C1769 ×2; C1760; J2001

== ENCOUNTER 2022-09-10 08:28 | Observation (INO) | payer OTHER ==
[2022-09-10] MEDS ORDERED: ASPIRIN 81 MG PO STA (08:55)
--- NOTE | 2022-09-10 09:05 | ED ---
General Adult HPI - General Chief complaint: Chest Pain Stated complaint: pain Time Seen by Provider: 09/10/22 08:36 Source: patient Mode of arrival: ambulatory Limitations: no limitations - History of Present Illness Initial comments: Dictation was produced using Not[employer]o dictation software. please excuse any grammatical, word or spelling errors. Chief Complaint: 37-year-old female presents with worsening chest pressure History of Present Illness: [id number] female back in July she had an ablation to treat SVT. She states she she's been having symptom of chest pressure is worse with exertion since prior to the procedure. Patient states that over the last several weeks her symptoms have been worsened. Patient contacted cardiology nurse practitioner said that she should probably come to the emergency department for evaluation. Patient states that she has chest pressure that rates on both upper extremities that's more prevalent with exertion. She does report extensive cardiac history in her family. Patient denies any symptoms at this time. It's also associated diaphoresis and nausea. The ROS documented in this emergency department record has been reviewed and confirmed by me. Those systems with pertinent positive or negative responses have been documented in the HPI. All other systems are other negative and/or noncontributory. PHYSICAL EXAM: General Impression: Alert and oriented x3, not in acute distress HEENT: Normocephalic atraumatic, extra-ocular movements intact, pupils equal and reactive to light bilaterally, mucous membranes moist. Cardiovascular: Heart regular rate and rhythm Chest: Able to complete full sentences, no retractions, no tachypnea Abdomen: abdomen soft, non-tender, non-distended, no organomegaly Musculoskeletal: Pulses present and equal in all extremities, no peripheral edema Motor: no focal deficits noted Neurological: CN II-XII grossly intact, no focal motor or sensory deficits noted Skin: Intact with no visualized rashes Psych: Normal affect and mood ED course: 37-year-old well-appearing female presents to the emergency department for symptoms concerning for acute coronary syndrome. Signs upon arrival are within acceptable limits. EKG does not show any signs of ischemia or infarction. Nursing notes and chart review was performed Laboratory evaluation obtained. CBC, coag panel, metabolic panel is unremarkable. Troponin is negative. Patient given aspirin will be admitted to observation for cardiology consultation, cardiac monitoring and serial tr oponins. My EKG interpretation: Ventricular rate 94, sinus rhythm, OR interval 154, QRS 90, QTC 401. No OR prolongation, no QTC prolongation, no ST or T-wave changes noted. Overall, this EKG is unremarkable Critical Care: no Critical Care time: n/a - Related Data Home Medications Medication Instructions Recorded Confirmed Aspirin EC [Ecotrin Low Dose] 81 mg PO DAILY 03/23/22 07/03/22 Atorvastatin [Lipitor] 40 mg PO HS 07/03/22 07/07/22 Buprenorphine-Nalox 8-2 mg Tab 0.5 tab SUBLINGUAL DAILY 07/03/22 07/07/22 [Suboxone 8-2 mg Tab] Zantac-360 (Unknown Dose) 1 tab PO DIRECTED PRN 07/03/22 lisinopriL [Zestril] 5 mg PO DAILY 07/03/22 07/07/22 Allergies Allergy/AdvReac Type Severity Reaction Status Date / Time codeine Allergy Swelling , Verified 09/10/22 08:34 and generally did not feel well levofloxacin [From Levaquin] Allergy itching Verified 09/10/22 08:34 and did not feel well Penicillins Allergy Rash/Hives Verified 09/10/22 08:34 Sulfa (Sulfonamide Allergy Rash/Hives Verified 09/10/22 08:34 Antibiotics) and did not feel well Review of Systems ROS Statement: Those systems with pertinent positive or pertinent negative responses have been documented in the HPI. ROS Other: All systems not noted in ROS Statement are negative. Past Medical History Past Medical History: Asthma, Chest Pain / Angina, GERD/Reflux, Hyperlipidemia, Hypertension, Osteoarthritis (OA) Additional Past Medical History / Comment(s): states hx of polynephritis & kidney failure, frequest UTI's, anemia, states irregular heart beat., See Cardiology H & P. History of Any Multi-Drug Resistant Organisms: None Reported Past Surgical History: Cholecystectomy Additional Past Surgical History / Comment(s): cardiac ablation d/t SVT, cyst removal right forearm and back. Past Anesthesia/Blood Transfusion Reactions: No Reported Reaction, Motion Sickness Additional Past Anesthesia/Blood Transfusion Reaction / Comment(s): hard time waking up. Past Psychological History: ADD/ADHD, Anxiety, Depression Smoking Status: Current every day smoker Past Alcohol Use History: Rare Past Drug Use History: Marijuana, Opiates General Exam Limitations: no limitations Course Vital Signs 09/10/22 08:30 Temperature 98.3 F Pulse Rate 108 H Respiratory 18 Rate Blood Pressure 149/98 O2 Sat by Pulse 100 Oximetry Medical Decision Making - Lab Data Result diagrams: 09/10/22 09:10 09/10/22 09:10 Lab Results 09/10/22 09/10/22 09/10/22 Range/Units 09:10 09:10 09:10 WBC 8.9 (3.8-10.6) k/uL RBC 4.59 (3.80-5.40) m/uL Hgb 12.7 (11.4-16.0) gm/dL Hct 38.4 (34.0-46.0) % MCV 83.5 (80.0-100.0) fL MCH 27.6 (25.0-35.0) pg MCHC 33.0 (31.0-37.0) g/dL RDW 14.9 (11.5-15.5) % Plt Count 314 (150-450) k/uL MPV 7.9 Neutrophils % 49 % Lymphocytes % 36 % Monocytes % 5 % Eosinophils % 7 % Basophils % 1 % Neutrophils # 4.4 (1.3-7.7) k/uL Lymphocytes # 3.2 (1.0-4.8) k/uL Monocytes # 0.5 (0-1.0) k/uL Eosinophils # 0.6 (0-0.7) k/uL Basophils # 0.1 (0-0.2) k/uL Hypochromasia Slight PT 10.6 (9.0-12.0) sec INR 1.0 (<1.2) APTT 24.8 (22.0-30.0) sec Sodium 138 (137-145) mmol/L Potassium 4.1 (3.5-5.1) mmol/L Chloride 107 (98-107) mmol/L Carbon Dioxide 25 (22-30) mmol/L Anion Gap 6 mmol/L BUN 16 (7-17) mg/dL Creatinine 0.77 (0.52-1.04) mg/dL Est GFR (CKD-EPI)AfAm >90 (>60 ml/min/1.73 sqM) Est GFR (CKD-EPI)NonAf >90 (>60 ml/min/1.73 sqM) Glucose 92 (74-99) mg/dL Calcium 9.2 (8.4-10.2) mg/dL Troponin I (0.000-0.034) ng/mL 09/10/22 Range/Units 09:10 WBC (3.8-10.6) k/uL RBC (3.80-5.40) m/uL Hgb (11.4-16.0) gm/dL Hct (34.0-46.0) % MCV (80.0-100.0) fL MCH (25.0-35.0) pg MCHC (31.0-37.0) g/dL RDW (11.5-15.5) % Plt Count (150-450) k/uL MPV Neutrophils % % Lymphocytes % % Monocytes % % Eosinophils % % Basophils % % Neutrophils # (1.3-7.7) k/uL Lymphocytes # (1.0-4.8) k/uL Monocytes # (0-1.0) k/uL Eosinophils # (0-0.7) k/uL Basophils # (0-0.2) k/uL Hypochromasia PT (9.0-12.0) sec INR (<1.2) APTT (22.0-30.0) sec Sodium (137-145) mmol/L Potassium (3.5-5.1) mmol/L Chloride (98-107) mmol/L Carbon Dioxide (22-30) mmol/L Anion Gap mmol/L BUN (7-17) mg/dL Creatinine (0.52-1.04) mg/dL Est GFR (CKD-EPI)AfAm (>60 ml/min/1.73 sqM) Est GFR (CKD-EPI)NonAf (>60 ml/min/1.73 sqM) Glucose (74-99) mg/dL Calcium (8.4-10.2) mg/dL Troponin I <0.012 (0.000-0.034) ng/mL Disposition Clinical Impression: Chest pain Disposition: ADMITTED IP TO THIS HOSP Condition: Fair Referrals: [facility] [Primary Care Provider] - 1-2 days Decision Time: 10:26
[2022-09-10 09:18] LABS: Basophils # (A) 0.1 k/uL (0-0.2); Basophils % (A) 1 %; Eosinophils # (A) 0.6 k/uL (0-0.7); Eosinophils % (A) 7 %; HCT 38.4 % (34.0-46.0); HGB 12.7 gm/dL (11.4-16.0); Hypochromasia Slight; Lymphocytes # (A) 3.2 k/uL (1.0-4.8); Lymphocytes % (A) 36 %; MCH 27.6 pg (25.0-35.0); MCV 83.5 fL (80.0-100.0); Mean Platelet Volume 7.9; Monocytes # (A) 0.5 k/uL (0-1.0); Monocytes % (A) 5 %; Neutrophils # (A) 4.4 k/uL (1.3-7.7); Neutrophils % (A) 49 %; Platelet Count 314 k/uL (150-450); RBC 4.59 m/uL (3.80-5.40); RDW 14.9 % (11.5-15.5); WBC 8.9 k/uL (3.8-10.6)
--- NOTE | 2022-09-10 09:19 | XR ---
EXAMINATION TYPE: XR chest 2V DATE OF EXAM: 09/10/2022 COMPARISON: 03/23/2022 TECHNIQUE: PA and lateral views submitted. HISTORY: Chest pain FINDINGS: The lungs are clear and there is no pneumothorax, pleural effusion, or focal pneumonia. Heart size normal. Stable prominence of the right cardiophrenic angle could represent a prominent pericardial fa t pad or pericardial cyst. No overt failure. IMPRESSION: 1. No acute process. Prominence of the right cardiophrenic angle could represent a prominent pericard ial fat pad or pericardial cyst.
[2022-09-10 09:28] LABS: African American GFR (CKD) >90 (>60 ml/min/1.73 sqM); Anion Gap 6 mmol/L; Blood Urea Nitrogen 16 mg/dL (7-17); Calcium 9.2 mg/dL (8.4-10.2); Carbon Dioxide 25 mmol/L (22-30); Chloride 107 mmol/L (98-107); Glucose 92 mg/dL (74-99); Non-African American GFR(CKD) >90 (>60 ml/min/1.73 sqM); Potassium 4.1 mmol/L (3.5-5.1); Sodium 138 mmol/L (137-145)
[2022-09-10 09:31] LABS: Partial Thromboplastin Time 24.8 sec (22.0-30.0); Prothrombin Time 10.6 sec (9.0-12.0)
[2022-09-10] MEDS ORDERED: NITROGLYCERIN SL TABS 0.4 MG TAB SUBLINGUAL PRN (10:22)
--- NOTE | 2022-09-10 14:59 | P.HPIM ---
History of Present Illness H&P Date: 09/10/22 This note will serve as the H&P along with discharge summary Patient is a 37-year-old female with PMH of SVT status post ablation, hypertension, dyslipidemia, GERD presents the ED for chest pain. Patient reports chest pain that has been ongoing since July. Her chest pain is intermittent in nature but has been progressively getting more frequent recently. Chest pain is worsened with exertion. She describes the chest pain to be burning and pulling in nature. Chest pain is left-sided and radiates down both of her arms. She initially thought her symptoms were related to indigestion. Pain is not aggravated with movement or deep inspiration. Her pain is 9 out of 10 in severity. Associated symptoms include nausea. She reports smoking 1 cigarette daily, attempting to quit. She denied any headache, lower extremity edema, fever or chills, cough, shortness of breath, palpitations, changes in urination or bowel habits. No changes in appetite or weight. She denies any dizziness, numbness/weakness/tingling of the extremities. In the ED, she was noted to be tachycardic with heart rate in the 100s. Vital signs are otherwise stable. CBC was unremarkable. INR was 1. BMP was unremarkable. Troponin was less than 0.0122 with EKG showing sinus rhythm. Chest x-ray was negative for acute changes. Patient is admitted under observation status for chest pain, rule out acute coronary syndrome and cardiology consultation. Pertinent positives and negatives as discussed in HPI, a complete review of systems was performed and all other systems are negative. General: non toxic, no distress, appears at stated age Derm: warm, dry Head: atraumatic, normocephalic, symmetric Eyes: EOMI, no lid lag, anicteric sclera Mouth: no lip lesion, mucus membranes moist Cardiovascular: S1S2 reg, no murmur, positive posterior tibial pulse bilateral Lungs: CTA bilateral, no rhonchi, no rales , no accessory muscle use Abdominal: soft, nontender to palpation, no guarding, no appreciable organomegaly Ext: no gross muscle atrophy, no edema, no contractures Neuro: no focal neuro deficits Psych: Alert, oriented, appropriate affect Discharge diagnosis: #Chest pain #History of SVT status post ablation #Hypertension #Dyslipidemia #GERD Patient presents for chest pain that appears to be atypical in nature. Her troponin is negative so far. Initial plan was to trend troponin/EKG to rule out ACS. Echocardiogram had been ordered along with telemetry monitoring. Cardiology had been consulted for further recommendations. Patient has decided to leave AGAINST MEDICAL ADVICE. Past Medical History Past Medical History: Asthma, Chest Pain / Angina, GERD/Reflux, Hyperlipidemia, Hypertension, Osteoarthritis (OA) Additional Past Medical History / Comment(s): states hx of polynephritis & kidney failure, frequest UTI's, anemia, states irregular heart beat., See Cardiology H & P. History of Any Multi-Drug Resistant Organisms: None Reported Past Surgical History: Cholecystectomy Additional Past Surgical History / Comment(s): cardiac ablation d/t SVT, cyst removal right forearm and back. Past Anesthesia/Blood Transfusion Reactions: No Reported Reaction, Motion Sickness Additional Past Anesthesia/Blood Transfusion Reaction / Comment(s): hard time waking up. Past Psychological History: ADD/ADHD, Anxiety, Depression Smoking Status: Current every day smoker Past Alcohol Use History: Rare Past Drug Use History: Marijuana, Opiates Medications and Allergies Home Medications Medication Instructions Recorded Confirmed Type Buprenorphine HCl/Naloxone HCl 1 tab SL BID 09/10/22 09/10/22 History [Zubsolv 5.7-1.4 mg Tablet Sl] Rosuvastatin [Crestor] 10 mg PO DAILY 09/10/22 09/10/22 History Vitamin D3(Unknown) 1 tab PO DAILY 09/10/22 09/10/22 History lisinopriL [Prinivil] 10 mg PO DAILY 09/10/22 09/10/22 History Allergies Allergy/AdvReac Type Severity Reaction Status Date / Time codeine Allergy Swelling , Verified 09/10/22 10:34 and generally did not feel well levofloxacin [From Levaquin] Allergy itching Verified 09/10/22 10:34 and did not feel well Penicillins Allergy Rash/Hives Verified 09/10/22 10:34 Sulfa (Sulfonamide Allergy Rash/Hives Verified 09/10/22 10:34 Antibiotics) and did not feel well Physical Exam Vitals: Vital Signs Temp Pulse Pulse Resp BP BP Pulse Ox 09/10/22 13:27 98 F 101 H 16 127/92 100 09/10/22 08:30 98.3 F 108 H 18 149/98 100 Intake and Output 09/09/22 09/10/22 09/10/22 22:59 06:59 14:59 Other: Voiding Method Toilet Weight 72.121 kg Results CBC & Chem 7: 09/10/22 09:10 09/10/22 09:10
[2022-09-10] MEDS: HEPARIN SODIUM,PORCINE/PF 5,000 UNIT/0.5 ML SYRINGE SQ SCH (20:46)
[2022-09-10] MEDS: ZUBSOLV SUBLINGUAL SCH (20:47)
[2022-09-11] MEDS: SODIUM CHLORIDE 0.9% 1,000 ML IV SCH (08:45)
[2022-09-11] MEDS: HEPARIN SODIUM,PORCINE/PF 5,000 UNIT/0.5 ML SYRINGE SQ SCH ×2 (08:46→20:22)
[2022-09-11] MEDS: ASPIRIN 325 MG TAB PO SCH (08:46)
[2022-09-11] MEDS: ATORVASTATIN 20 MG TAB PO SCH (08:47)
[2022-09-11] MEDS ORDERED: lisinopriL 10 MG TAB PO SCH (09:00)
[2022-09-11 09:24] LABS: Chol/HDL Ratio 2.74 Ratio; LDL Cholesterol,Calculated 55.1 mg/dL (0.0-131.0)
--- NOTE | 2022-09-11 11:14 | P.CRDCN ---
History of Present Illness Consult date: 09/11/22 Consult reason: chest pain History of present illness: History of present illness: This is a 37-year-old female with past medical history of PVCs status post EP study with ablation 07/07/2022. He gives history of having chest pain that is a burning type starting in her midsternal area radiating up into bilateral armpits and down both arms. Pain occurs with activity including carrying bags groceries or with sexual activity. She also states it feels somewhat like indigestion. On her last episode, her checked her blood pressure was 149/100 90 and heart rate was 101. Initially this was happening about one time per month and now it's happening more frequently. states that patient falls asleep after these episodes and stays asleep. Rest does not cause the symptoms recur. Symptoms may be worse since she started taking lisinopril. She has a family history of atrial fibrillation. EKG is a normal sinus rhythm 2 Chest x-ray shows no acute process CBC, BMP unremarkable. Troponin negative 3. HCG nondetected Echocardiogram 03/2022 reveals normal systolic function with left ventricular hypertrophy, mild tricuspid regurgitation Normal exercise stress test in March 2022 Review Of Systems: At the time of my evaluation: Constitutional: No fever, no chills. No weakness, fatigue or lethargy. EENT: No headache. No dizziness. Lungs: No shortness of breath, cough, no sputum production. No wheezing. Cardiovascular: No chest pain, no lower extremity edema. No palpitations. No paroxysmal nocturnal dyspnea. No orthopnea. No lightheadedness or dizziness. No syncopal episodes. Abdominal: No abdominal pain. No nausea, vomiting. No diarrhea. No constipation. No bloody or tarry stools.. No loss of appetite. Genitourinary: No dysuria.. No urinary retention. Musculoskeletal: No myalgias. No muscle weakness, no gait dysfunction, no frequent falls. No back pain. No neck pain. Integumentary: No wounds, no lesions. No rash or pruritus. No unusual bruising. Neurologic: No aphasia. No facial droop. No change in mentation. No head injury. No headache. No paralysis. No paresthesia. Psychiatric: No depression. No anxiety. Endocrine: No abnormal blood sugars. Physical examination: Gen: This is a 37-year-old female. She is resting in bed appears to be comfortable. No acute distress. VS: Reviewed HEENT: Head is atraumatic, normocephalic. Pupils equal, round. Sclerae is anicteric. NECK: Supple. No JVD. No lymphadenopathy. No thyromegaly. LUNGS: Clear to auscultation. No wheezes or rhonchi. No intercostal retractions. HEART: Regular rate and rhythm. No murmur. ABDOMEN: Soft. Bowel sounds are present. No masses. No tenderness. EXTREMITIES: No pedal edema. No calf tenderness. NEUROLOGICAL: Patient is awake, alert and oriented x3. Cranial nerves 2 through 12 are grossly intact. Assessment: Chest/back/arm burning sensation with activity Hypertension History of PVCs status post EP study and ablation 07/07/2022 Plan: Obtain urgent tilt table test this morning Obtain TSH and free T4, d-dimer and cortisol level Following tilt table test, start metanephrines 24-hour urine test Plan for 30 day event monitor upon discharge Further recommendations to follow based upon clinical course Thank you kindly for this consultation. Nurse practitioner note has been reviewed, I agree with documented findings and plan of care. Patient was seen and examined.The patient was interviewed and examined Past Medical History Past Medical History: Asthma, Chest Pain / Angina, GERD/Reflux, Hyperlipidemia, Hypertension, Osteoarthritis (OA) Additional Past Medical History / Comment(s): states hx of polynephritis & kidney failure, frequest UTI's, anemia, states irregular heart beat., See Cardiology H & P. History of Any Multi-Drug Resistant Organisms: None Reported Past Surgical History: Cholecystectomy Additional Past Surgical History / Comment(s): cardiac ablation d/t SVT, cyst removal right forearm and back. Past Anesthesia/Blood Transfusion Reactions: No Reported Reaction, Motion Sickness Additional Past Anesthesia/Blood Transfusion Reaction / Comment(s): hard time waking up. Past Psychological History: ADD/ADHD, Anxiety, Depression Smoking Status: Current every day smoker Past Alcohol Use History: Rare Additional Past Alcohol Use History / Comment(s): smokes approx 2 cigarettes / day., started smoking age 9. Past Drug Use History: Marijuana, Opiates Additional Drug Use History / Comment(s): current marijuana use., states hx of hydrocodone use Medications and Allergies Home Medications Medication Instructions Recorded Confirmed Type Buprenorphine HCl/Naloxone HCl 1 tab SL BID 09/10/22 09/10/22 History [Zubsolv 5.7-1.4 mg Tablet Sl] Rosuvastatin [Crestor] 10 mg PO DAILY 09/10/22 09/10/22 History Vitamin D3(Unknown) 1 tab PO DAILY 09/10/22 09/10/22 History lisinopriL [Prinivil] 10 mg PO DAILY 09/10/22 09/10/22 History Allergies Allergy/AdvReac Type Severity Reaction Status Date / Time codeine Allergy Swelling , Verified 09/10/22 10:34 and generally did not feel well levofloxacin [From Levaquin] Allergy itching Verified 09/10/22 10:34 and did not feel well Penicillins Allergy Rash/Hives Verified 09/10/22 10:34 Sulfa (Sulfonamide Allergy Rash/Hives Verified 09/10/22 10:34 Antibiotics) and did not feel well Physical Exam Vitals: Vital Signs Temp Pulse Resp BP Pulse Ox 09/11/22 07:00 98.3 F 93 18 107/69 97 09/11/22 02:38 98.6 F 106 H 17 118/71 100 09/10/22 19:03 97.9 F 87 18 128/85 100 09/10/22 15:51 97.9 F 93 16 124/82 98 09/10/22 13:27 98 F 101 H 16 127/92 100 Intake and Output 09/10/22 09/11/22 09/11/22 22:59 06:59 14:59 Intake Total 360 Balance 360 Intake: Oral 360 Other: Voiding Method Toilet # Voids 2 2 Weight 72.121 kg Results 09/10/22 09:10 09/10/22 09:10 Cardiac Enzymes 09/10/22 09/10/22 09/10/22 Range/Units 09:10 11:55 15:31 Troponin I <0.012 <0.012 <0.012 (0.000-0.034) ng/mL Coagulation 09/10/22 Range/Units 09:10 PT 10.6 (9.0-12.0) sec APTT 24.8 (22.0-30.0) sec CBC 09/10/22 Range/Units 09:10 WBC 8.9 (3.8-10.6) k/uL RBC 4.59 (3.80-5.40) m/uL Hgb 12.7 (11.4-16.0) gm/dL Hct 38.4 (34.0-46.0) % Plt Count 314 (150-450) k/uL Comprehensive Metabolic Panel 09/10/22 Range/Units 09:10 Sodium 138 (137-145) mmol/L Potassium 4.1 (3.5-5.1) mmol/L Chloride 107 (98-107) mmol/L Carbon Dioxide 25 (22-30) mmol/L BUN 16 (7-17) mg/dL Creatinine 0.77 (0.52-1.04) mg/dL Glucose 92 (74-99) mg/dL Calcium 9.2 (8.4-10.2) mg/dL Current Medications Generic Name Dose Route Start Last Admin Trade Name Freq PRN Reason Stop Dose Admin Aspirin 325 mg 09/11/22 09:00 Aspirin 325 Mg Tab PO DAILY [facility] Atorvastatin Calcium 10 mg 09/11/22 09:00 Atorvastatin 20 Mg Tab PO DAILY [facility] Heparin Sodium (Porcine) 5,000 unit 09/10/22 21:00 09/10/22 20:46 Heparin Sodium,Porcine/Pf 5,000 Unit/0.5 Ml Syringe SQ Not Given Q12HR [facility] Lisinopril 10 mg 09/11/22 09:00 Lisinopril 10 Mg Tab PO DAILY [facility] Nitroglycerin 0.4 mg 09/10/22 10:22 Nitroglycerin Sl Tabs 0.4 Mg Tab SUBLINGUAL Q5M PRN Chest Pain Zubsolv ( 1 tab 09/10/22 21:00 09/10/22 20:47 Buprenorphine/ SUBLINGUAL Not Given Naloxone) 5.7-1.4 Mg BID [facility] Tablet Sl Intake and Output 09/10/22 09/11/22 09/11/22 22:59 06:59 14:59 Intake Total 360 Balance 360 Intake: Oral 360 Other: Voiding Method Toilet # Voids 2 2 Weight 72.121 kg 09/10/22 09:10 09/10/22 09:10
--- NOTE | 2022-09-11 11:54 | P.PN ---
Subjective Progress Note Date: 09/11/22 Patient is a 37-year-old female with PMH of SVT status post ablation, hypertension, dyslipidemia, GERD presents the ED for chest pain. Patient reports chest pain that has been ongoing since July. Her chest pain is intermittent in nature but has been progressively getting more frequent recently. Chest pain is worsened with exertion. She describes the chest pain to be burning and pulling in nature. In the ED, she was noted to be tachycardic with heart rate in the 100s. Vital signs are otherwise stable. CBC was unremarkable. INR was 1. BMP was unremarkable. Troponin was less than 0.0122 with EKG showing sinus rhythm. Chest x-ray was negative for acute changes. Patient is admitted under observation status for chest pain, rule out acute coronary syndrome and cardiology consultation. Patient was seen and examined this morning. No acute events overnight. Patient reports complete resolution of her chest pain. General: non toxic, no distress, appears at stated age Derm: warm, dry Head: atraumatic, normocephalic, symmetric Eyes: EOMI, no lid lag, anicteric sclera Mouth: no lip lesion, mucus membranes moist Cardiovascular: S1S2 reg, no murmur Lungs: CTA bilateral, no rhonchi, no rales , no accessory muscle use Ext: no gross muscle atrophy, no edema, no contractures Neuro: no focal neuro deficits Psych: Alert, oriented, appropriate affect #Chest pain ACS ruled out. Obtain Echocardiogram. Telemetry monitoring. Cardiology consult - Tilt table testing, TSH/FT4, D-Dimer, Cortisol level, 24H Metanephrine collection, 30 day event monitor on discharge. #History of SVT status post ablation #Hypertension Restart Lisinopril. Monitor vitals and adjust medication if necessary. #Dyslipidemia Restart Crestor. Objective - Vital Signs Vital signs: Vital Signs Temp 98.3 F 09/11/22 07:00 Pulse 93 09/11/22 07:00 Resp 18 09/11/22 07:00 BP 107/69 09/11/22 07:00 Pulse Ox 97 09/11/22 07:00 FiO2 Intake & Output 09/10/22 09/11/22 09/11/22 18:59 06:59 18:59 Intake Total 360 Balance 360 Weight 72.121 kg Intake: Oral 360 Other: Voiding Method Toilet Toilet # Voids 0 2 - Labs CBC & Chem 7: 09/10/22 09:10 09/10/22 09:10
[2022-09-11] MEDS: ZUBSOLV SUBLINGUAL SCH ×2 (13:43→20:22)
[2022-09-11] MEDS: KETOROLAC 15 MG/ML 1 ML VIAL IVP PRN (18:37)
--- NOTE | 2022-09-11 19:51 | P.EPPROC ---
- EP Procedure Note Electrophysiology Procedure Note: Diagnosis Recurrent dizzy spells with nausea and sweatiness and palpitations Twelve-lead EKG shows sinus mechanism no PVCs normal ST segments Normal intervals Tilt table test per protocol Baseline blood pressure 170/76. His mercury, Baseline heart rate 79 beats a minute Patient was tilted upright at an angle of 70 per protocol No symptoms change in blood pressure Mild increase in heart rate 203 beats a minute Heart rate remained between 100 - 120 beats a minute through the procedure When she is laid supine heart rate normalized 81 beats a minute Impression Orthostatic intolerance Associated feeling of warmth and heat/heart/was Nausea during the procedure Heart rate was > 100 beats a minute but her blood pressure was normal during these symptoms
[2022-09-12] MEDS: ASPIRIN 325 MG TAB PO SCH (08:49)
[2022-09-12] MEDS: ATORVASTATIN 20 MG TAB PO SCH (08:49)
[2022-09-12] MEDS: HEPARIN SODIUM,PORCINE/PF 5,000 UNIT/0.5 ML SYRINGE SQ SCH (08:53)
[2022-09-12] MEDS: ZUBSOLV SUBLINGUAL SCH (08:53)
[2022-09-12] MEDS: KETOROLAC 15 MG/ML 1 ML VIAL IVP PRN ×2 (08:54→15:24)
[2022-09-12] MEDS: SODIUM CHLORIDE 0.9% 1,000 ML IV SCH (08:56)
[2022-09-12] MEDS ORDERED: lisinopriL 5 MG TAB PO SCH (09:00)
--- NOTE | 2022-09-12 09:19 | CA ---
Transthoracic Echo Report Name: Reshma Agarwal Age: 37 Gender: F : 1985 Exam Date: 09/11/2022 14:05 Exam Location: [facility] Ht (in): 64 Wt (lb): 159 Ordering Physician: Gomez Oneal MD Attending/Referring Phys: Resident In Diagnostic Radiology Marina Calderon RDCS Procedure CPT: Indications: CP Cardiac Hx: Technical Quality: Fair Contrast 1: Total Dose (mL): Contrast 2: Total Dose (mL): MEASUREMENTS (Male / Female) Normal Values 2D ECHO LV Diastolic Diameter PLAX 4.2 cm 4.2 - 5.9 / 3.9 - 5.3 cm LV Systolic Diameter PLAX 2.0 cm IVS Diastolic Thickness 1.5 cm 0.6 - 1.0 / 0.6 - 0.9 cm LVPW Diastolic Thickness 1.4 cm 0.6 - 1.0 / 0.6 - 0.9 cm LV Relative Wall Thickness 0.7 RV Internal Dim ED PLAX 3.0 cm LA Volume 31.8 cm??? 18 - 58 / 22 - 52 cm??? M-MODE Aortic Root Diameter MM 3.0 cm LA Systolic Diameter MM 3.3 cm LA Ao Ratio MM 1.1 AV Cusp Separation MM 1.5 cm DOPPLER AV Peak Velocity 117.3 cm/s AV Peak Gradient 5.5 mmHg AV Mean Velocity 95.0 cm/s AV Mean Gradient 3.8 mmHg AV Velocity Time Integral 19.9 cm LVOT Peak Velocity 90.2 cm/s LVOT Peak Gradient 3.3 mmHg LVOT Velocity Time Integral 19.0 cm MV Area PHT 3.9 cm??? Mitral E Point Velocity 83.4 cm/s Mitral A Point Velocity 107.2 cm/s Mitral E to A Ratio 0.8 MV Deceleration Time 196.4 ms TR Peak Velocity 186.2 cm/s TR Peak Gradient 13.9 mmHg Right Ventricular Systolic Press 18.9 mmHg FINDINGS Left Ventricle Moderately increased left ventricular wall thickness. Normal left ventricular systolic function with no obvious regional wall motion abnormalities. Left ventricular ejection fraction is estimated at 55-60 %. Right Ventricle Normal right ventricular size and function. Right ventricular systolic pressure within normal limits. Right Atrium Normal right atrial size. Left Atrium Normal left atrial size. Mitral Valve Structurally normal mitral valve. No mitral stenosis, regurgitation or prolapse. Aortic Valve Trileaflet aortic valve. No aortic valve stenosis or regurgitation. Tricuspid Valve Structurally normal tricuspid valve. Mild tricuspid regurgitation. Pulmonic Valve Trace pulmonic regurgitation. Pericardium No pericardial effusion. Aorta Normal size aortic root and proximal ascending aorta. CONCLUSIONS LVH with preserved systolic function ejection fraction 60% Normal RV size and function No pericardial effusion Previewed by: Dr. Kb Sanon MD (Electronically Signed) Final Date: 12 September 2022 09:18
--- NOTE | 2022-09-12 10:03 | P.PN ---
Subjective Progress Note Date: 09/12/22 History of present illness: This is a 37-year-old female with past medical history of PVCs status post EP study with ablation 07/07/2022. He gives history of having chest pain that is a burning type starting in her midsternal area radiating up into bilateral armpits and down both arms. Pain occurs with activity including carrying bags groceries or with sexual activity. She also states it feels somewhat like indigestion. On her last episode, her checked her blood pressure was 149/100 90 and heart rate was 101. Initially this was happening about one time per month and now it's happening more frequently. states that patient falls asleep after these episodes and stays asleep. Rest does not cause the symptoms recur. Symptoms may be worse since she started taking lisinopril. She has a family history of atrial fibrillation. EKG is a normal sinus rhythm 2 Chest x-ray shows no acute process CBC, BMP unremarkable. Troponin negative 3. HCG nondetected Echocardiogram 03/2022 reveals normal systolic function with left ventricular hypertrophy, mild tricuspid regurgitation Normal exercise stress test in March 202209/12 Echocardiogram reveals EF of 60%. Tilt table test reveals orthostatic intolerance. Patient felt warm and nauseated during the procedure without blood pressure response Blood pressure readings have been 103/68 - 118/75. TSH 1.860, cortisol level , d-dimer 0.32. Patient denies any symptoms at the time of evaluation. Physical examination: Gen: This is a 37-year-old female. She is resting in bed appears to be comfortable. No acute distress. VS: Reviewed HEENT: Head is atraumatic, normocephalic. Pupils equal, round. Sclerae is anicteric. NECK: Supple. No JVD. No lymphadenopathy. No thyromegaly. LUNGS: Clear to auscultation. No wheezes or rhonchi. No intercostal retractions. HEART: Regular rate and rhythm. No murmur. ABDOMEN: Soft. Bowel sounds are present. No masses. No tenderness. EXTREMITIES: No pedal edema. No calf tenderness. NEUROLOGICAL: Patient is awake, alert and oriented x3. Cranial nerves 2 through 12 are grossly intact. Assessment: Chest/back/arm burning sensation with activity Hypertension Orthostatic intolerance with heart rate response, no blood pressure response, minor POTS History of PVCs status post EP study and ablation 07/07/2022 Plan: Complete metanephrines 24-hour urine test 30 day event monitor upon discharge Change lisinopril to 5 mg twice daily versus 10 mg once daily Once urine test has been completed and 30 day monitor applied, patient is cleared from cardiology for discharge. Plan for patient to come back for recheck in 6 weeks after the 30 day event monitor is completed. Patient does have a stress test scheduled for later this month which she will keep the appointment. Thank you kindly for this consultation. Nurse practitioner note has been reviewed, I agree with documented findings and plan of care. Patient was seen and examined.The patient was interviewed and examined Objective - Vital Signs Vital signs: Vital Signs Temp 98.6 F 09/12/22 03:23 Pulse 96 09/12/22 03:23 Resp 18 09/12/22 03:23 BP 104/64 09/12/22 03:23 Pulse Ox 98 09/12/22 07:29 FiO2 Intake & Output 09/11/22 09/12/22 09/12/22 18:59 06:59 18:59 Intake Total 360 Output Total 400 Balance -40 Intake: Oral 360 Output: Urine 400 Other: Voiding Method Toilet # Voids 0 3 - Labs CBC & Chem 7: 09/10/22 09:10 09/10/22 09:10
--- NOTE | 2022-09-12 12:23 | P.DS ---
Providers Date of admission: 09/10/22 10:22 Expected date of discharge: 09/12/22 Attending physician: Gomez Oneal MD Consults: 09/10/22 10:22 Consult Physician Urgent Consulting Provider: Kb Sanon Consult Reason/Comments: chest pain Do you want consulting provider notified?: Yes Primary care physician: [facility] Hospital Course: 37-year-old female with PMH of frequent PVCs status post ablation, hypertension, dyslipidemia, GERD presents the ED for chest pain. Patient reports chest pain that has been ongoing since July. Her chest pain is intermittent in nature but has been progressively getting more frequent recently. Chest pain is worsened with exertion. She describes the chest pain to be burning and pulling in nature. Chest pain is left-sided and radiates down both of her arms. She initially thought her symptoms were related to indigestion. Pain is not aggravated with movement or deep inspiration. Her pain is 9 out of 10 in severity. Associated symptoms include nausea. She reports smoking 1 cigarette daily, attempting to quit. She denied any headache, lower extremity edema, fever or chills, cough, shortness of breath, palpitations, changes in urination or bowel habits. No changes in appetite or weight. She denies any dizziness, numbness/weakness/tingling of the extremities. In the ED, she was noted to be tachycardic with heart rate in the 100s. Vital signs are otherwise stable. CBC was unremarkable. INR was 1. BMP was unremarkable. Troponin was less than 0.0122 with EKG showing sinus rhythm. Chest x-ray was negative for acute changes. Patient is admitted under observation status for chest pain, rule out acute coronary syndrome and cardiology consultation. Patient was admitted, troponin was cycled, remained negative. Telemetry did not show any acute abnormalities. Echocardiogram was negative. Cardiology advised checking metanephrines 24-hour urine test, which was collected, currently pending. Patient will have 30 day event monitor upon discharge. Cardiology advised changing lisinopril to 5 mg twice daily versus 10 mg once daily. Symptoms could be anxiety related versus secondary to GERD. Patient will need to follow-up with cardiology in 4-6 weeks to check on the event monitor. Patient was seen and examined [id number] on the day of discharge 09/12. Patient Condition at Discharge: Fair Plan - Discharge Summary Discharge Rx Participant: No New Discharge Prescriptions: Continue Vitamin D3(Unknown) 1 tab PO DAILY Rosuvastatin [Crestor] 10 mg PO DAILY Buprenorphine HCl/Naloxone HCl [Zubsolv 5.7-1.4 mg Tablet Sl] 1 tab SL BID Changed lisinopriL [Prinivil] 5 mg PO BID #0 Discharge Medication List Buprenorphine HCl/Naloxone HCl [Zubsolv 5.7-1.4 mg Tablet Sl] 1 tab SL BID 09/10/22 [History] Rosuvastatin [Crestor] 10 mg PO DAILY 09/10/22 [History] Vitamin D3(Unknown) 1 tab PO DAILY 09/10/22 [History] lisinopriL [Prinivil] 5 mg PO BID #0 09/12/22 [Rx] Follow up Appointment(s)/Referral(s): Kb Sanon MD [STAFF PHYSICIAN] - [address] [facility] [Primary Care Provider] - 1-2 days
[2022-09-12 15:16] VITALS: BP 117/72; PULSE 96; RESP 20; TEMP 98.2
[2022-09-17 09:51] LABS: Metanephrines 24 Hour,Urine 92 ug/day (52-341); Normetanephrine 24 Hour,Urine 613 ug/day (88-444); Total Metanephrines 24 Hour,Ur 705 ug/day (140-785); Urine Creatinine, 24 Hr 3.4 gm/24h (0.8-1.8)
== END 2022-09-12 15:38 | disposition home or self-care (01) ==
LOC: EC 08:28 → 6NMEDSUR 10:22
PROVIDERS: ADMIT Family Medicine; ATTEND Family Medicine
DX: R07.89 Other chest pain (principal); R42 Dizziness and giddiness; R11.0 Nausea; R61 Generalized hyperhidrosis; R00.2 Palpitations; J45.909 Unspecified asthma, uncomplicated; I10 Essential (primary) hypertension; K21.9 Gastro-esophageal reflux disease without esophagitis; E78.5 Hyperlipidemia, unspecified; M19.90 Unspecified osteoarthritis, unspecified site; F32.A Depression, unspecified; F41.9 Anxiety disorder, unspecified; F90.9 Attention-deficit hyperactivity disorder, unspecified type; F17.210 Nicotine dependence, cigarettes, uncomplicated; Z87.440 Personal history of urinary (tract) infections; Z79.82 Long term (current) use of aspirin; Z79.899 Other long term (current) drug therapy; Z88.5 Allergy status to narcotic agent; Z88.1 Allergy status to other antibiotic agents; Z88.0 Allergy status to penicillin; Z88.2 Allergy status to sulfonamides
CPT/HCPCS: 99285; 36415; 94760; 93005; 93306; 93270; 93660; 85379; 80061; 80048; 84443; 82533; 84484; 85025; 85610; 85730; 83835; 81025; 71046; G0378 ×3; J1885 ×2

== ENCOUNTER 2022-09-25 10:57 | Day surgery (SDC) | payer OTHER ==
[2022-09-24 10:43] VITALS: BMI 27.5
[~2022-09-25 10:57] MED LIST: ALPRAZolam 0.25 MG TAB PO PRN; ALPRAZolam 0.5 MG TAB PO PRN; ASPIRIN 325 MG TAB PO ONE; ATORVASTATIN 80 MG TAB PO ONE; HEPARIN SODIUM,PORCINE 10,000 UNIT in SODIUM CHLORIDE 0.9% 1,000 ML IRRIGATION PRN; HEPARIN SODIUM,PORCINE 2,500 UNIT in SODIUM CHLORIDE 0.9% 250 ML IRRIGATION PRN; NITROGLYCERIN SL TABS 0.4 MG TAB SUBLINGUAL PRN; SODIUM CHLORIDE 0.9% 1,000 ML in EMPTY BAG 1 BAG IV SCH
[2022-09-25 11:27] VITALS: RESP 18; TEMP 97.6
[2022-09-25 11:39] LABS: Basophils # (A) 0.1 k/uL (0-0.2); Basophils % (A) 1 %; Eosinophils # (A) 0.6 k/uL (0-0.7); Eosinophils % (A) 6 %; HGB 12.6 gm/dL (11.4-16.0); Lymphocytes # (A) 3.1 k/uL (1.0-4.8); Lymphocytes % (A) 31 %; MCH 27.1 pg (25.0-35.0); MCHC 32.4 g/dL (31.0-37.0); MCV 83.7 fL (80.0-100.0); Mean Platelet Volume 7.9; Monocytes # (A) 0.4 k/uL (0-1.0); Monocytes % (A) 4 %; Neutrophils # (A) 5.7 k/uL (1.3-7.7); Neutrophils % (A) 57 %; Platelet Count 398 k/uL (150-450); RBC 4.66 m/uL (3.80-5.40); RDW 14.4 % (11.5-15.5); WBC 10.1 k/uL (3.8-10.6)
[2022-09-25] MEDS ORDERED: VERAPAMIL 2.5 MG/ML 2 ML AMP ONE (11:46)
[2022-09-25 11:51] LABS: African American GFR (CKD) >90 (>60 ml/min/1.73 sqM); Anion Gap 6 mmol/L; Blood Urea Nitrogen 21 mg/dL (7-17); Calcium 8.6 mg/dL (8.4-10.2); Carbon Dioxide 26 mmol/L (22-30); Chloride 106 mmol/L (98-107); Glucose 89 mg/dL (74-99); Non-African American GFR(CKD) >90 (>60 ml/min/1.73 sqM); Sodium 138 mmol/L (137-145)
[2022-09-25 12:01] LABS: Potassium 4.4 mmol/L (3.5-5.1)
[2022-09-25] MEDS ORDERED: fentaNYL (PF) 50 MCG/ML 2 ML AMP ONE (12:20)
[2022-09-25] MEDS ORDERED: HEPARIN SODIUM 1,000 UN/ML (10ML VL) ONE (12:20)
[2022-09-25] MEDS: fentaNYL (PF) 50 MCG/ML 2 ML AMP IV ONE ×2 (12:24→12:39)
[2022-09-25] MEDS: MIDAZOLAM 2 MG/2 ML VIAL IV ONE ×4 (12:24→12:42)
[2022-09-25] MEDS ORDERED: LIDOCAINE 1% INJ 10MG/ML (5 ML VIAL-PF) SQ ONE (12:25)
[2022-09-25] MEDS: VERAPAMIL SYRINGE (5 MG/10 ML) INTRAARTER ONE ×2 (12:26→12:39)
[2022-09-25] MEDS: HEPARIN SODIUM 1,000 UN/ML (10ML VL) IV ONE ×2 (12:30→12:40)
[2022-09-25] MEDS ORDERED: PRASUGREL 10 MG TAB ONE (12:34)
[2022-09-25] MEDS ORDERED: PRASUGREL 10 MG TAB PO ONE (12:37)
[2022-09-25] MEDS: NITROGLYCERIN 1000MCG/10ML SYRINGE INTRACORON ONE ×3 (12:48→13:03)
[2022-09-25] MEDS ORDERED: IOPAMIDOL-370 125ML BTL INJ ONE (13:01)
[2022-09-25] MEDS ORDERED: ZOLPIDEM 5 MG TAB PO PRN (13:14)
[2022-09-25] MEDS ORDERED: ATROPINE SULFATE 0.1 MG/ML 10ML SYRINGE IV PRN (13:14)
[2022-09-25] MEDS ORDERED: RX INFO: IV CONTRAST WAS GIVEN 1 EACH MISC MISCELLANE PRN (13:14)
[2022-09-25] MEDS ORDERED: MAG HYDROX/AL HYDROX/SIMETH 30 ML CUP PO PRN (13:14)
[2022-09-25] MEDS ORDERED: NITROGLYCERIN SL TABS 0.4 MG TAB SUBLINGUAL PRN (13:14)
--- NOTE | 2022-09-25 13:14 | P.PRCINT ---
Percutaneous Coronary Int. - Percutaneous Coronary Intervention Percutaneous Coronary Intervention: PROCEDURES PERFORMED: Left heart catheterization, bilateral coronary angiography, PCI mid LAD 4.0 x 12 Xience TAMIA, post dilated with a 4.5 NC balloon INDICATION: Abnormal stress test, chest pain with minimal exertion despite antianginals CONSENT:I have discussed the risks, benefits and alternative therapies for the above-mentioned procedure and for both sedation/analgesia as well as necessary blood product administration, if indicated, as they pertain to this patient. The patient has indicated understanding and acceptance of the risks and procedures discussed. PROCEDURE: After the risks, benefits and alternatives of the above mentioned procedure explained in detail with the patient, informed consent was obtained. Patient was taken to the catheterization lab and prepped and draped in usual fashion. 1% lidocaine was used to anesthetize the right radial artery. A 6- [place] sheath was placed in the right radial artery using modified Seldinger technique. Left coronary angiography was performed with a 5-[place] JL 3.5 catheter and right coronary angiography was performed with a 5-[place]ib[place] JR5 catheter in various views. A 5-[place]ib[place] FR5 catheter was inserted into the left ventricle and pressure measurements were obtained. Nitro 200mcg was given with no change in the LAD lesion. The decision was made to perform PCI of the LAD. Heparin was given for ACT greater than 250. A 6- [place] CLS 3.0 guide was used to engage the left main. A 0.014 BMW wire was advanced into the distal LAD. Predilation was performed with a 3.5 x 8 balloon however watermeloning and therefore 3.5 x 12 mm noncompliant balloon disease. I like the lesion. Next a 4.0 x 12 mm Xience TAMIA was placed in the mid LAD. The center of the stent was post dilated with a 4.5 NC balloon. The right radial sheath was removed and a TR band was placed with hemostasis achieved. The patient tolerated the procedure well. Patient was transported back to the post catheterization holding area in stable condition. Conscious Sedation: Patient was monitored under the direct supervision of vision of myself for conscious sedation using Versed and fentanyl for a total duration of 44 minutes HEMODYNAMICS: Aorta: 101/74 LV: 113/9, LVEDP 12 SELECTIVE CORONARY ARTERIOGRAPHY: LEFT MAIN: The left main is a large caliber vessel which bifurcates into the LAD and circumflex. There is no significant stenosis. LEFT ANTERIOR DESCENDING CORONARY ARTERY: LAD is a large caliber vessel which wraps around to the apex. There is a focal mid LAD 99% stenosis and otherwise appears normal LEFT CIRCUMFLEX CORONARY ARTERY: Left circumflex is a moderate caliber vessel without significant stenosis. RIGHT CORONARY ARTERY: The right coronary artery is a large caliber vessel which gives off a PDA and PLV branch and is the dominant vessel. There is no significant stenosis. FINAL IMPRESSION: 1. Relatively normal coronary arteries as described above except for a mid LAD 99% stenosis. 2. S/p PCI mid LAD with a 4.0 x 12mm Xience TAMIA, post dilated with a 4.5 NC balloon 3. Normal left sided filling pressures PLAN: 1. Aggressive risk factor modification per most recent ACC/AHA guidelines. 2. Continue dual antiplatelets for 12 months with aspirin and Effient. 3. Tobacco cessation 4. Follow-up in the office in 1-2 weeks.
[2022-09-25] MEDS ORDERED: SODIUM CHLORIDE 0.9% 1,000 ML in EMPTY BAG 1 BAG IV SCH (13:15)
[2022-09-25] MEDS ORDERED: IOPAMIDOL-370 100ML BTL INJ ONE (13:24)
[2022-09-25 15:58] VITALS: BP 108/59; PULSE 72
[2022-09-26] MEDS ORDERED: PRASUGREL 10 MG TAB PO SCH (09:00)
[2022-09-26] MEDS ORDERED: ASPIRIN 81 MG PO SCH (09:00)
== END 2022-09-25 16:32 | disposition home or self-care (01) ==
LOC: CATHCVL 10:57
PROVIDERS: ATTEND Internal Medicine
DX: I25.10 Atherosclerotic heart disease of native coronary artery without angina pectoris (principal); I99.8 Other disorder of circulatory system; R94.39 Abnormal result of other cardiovascular function study; I10 Essential (primary) hypertension; E78.1 Pure hyperglyceridemia; I47.20 Ventricular tachycardia, unspecified; I49.3 Ventricular premature depolarization; G90.1 Familial dysautonomia [Riley-Day]; F17.210 Nicotine dependence, cigarettes, uncomplicated; Z88.0 Allergy status to penicillin; Z88.2 Allergy status to sulfonamides; Z88.8 Allergy status to other drugs, medicaments and biological substances; Z82.49 Family history of ischemic heart disease and other diseases of the circulatory system; Z79.02 Long term (current) use of antithrombotics/antiplatelets; Z79.899 Other long term (current) drug therapy; Z79.82 Long term (current) use of aspirin
CPT/HCPCS: 93458; 80048; 85025; 81025; C9600; C1769 ×2; C1887; C1894; C1725 ×2; C1874; J2250; J2001; J3010; J1644; Q9967 ×2

== ENCOUNTER 2022-10-23 03:40 | Emergency (ER) | payer OTHER ==
[2022-10-23] MEDS ORDERED: ONDANSETRON 4 MG/2 ML VIAL IVP STA (04:08)
[2022-10-23 04:33] LABS: Basophils # (A) 0.1 k/uL (0-0.2); Basophils % (A) 1 %; Eosinophils # (A) 0.6 k/uL (0-0.7); Eosinophils % (A) 6 %; HCT 36.7 % (34.0-46.0); HGB 12.2 gm/dL (11.4-16.0); Lymphocytes # (A) 2.6 k/uL (1.0-4.8); Lymphocytes % (A) 29 %; MCH 27.1 pg (25.0-35.0); MCHC 33.3 g/dL (31.0-37.0); MCV 81.4 fL (80.0-100.0); Mean Platelet Volume 7.8; Monocytes # (A) 0.5 k/uL (0-1.0); Monocytes % (A) 5 %; Neutrophils # (A) 5.4 k/uL (1.3-7.7); Neutrophils % (A) 58 %; Platelet Count 353 k/uL (150-450); RBC 4.51 m/uL (3.80-5.40); RDW 14.2 % (11.5-15.5); WBC 9.3 k/uL (3.8-10.6)
[2022-10-23 04:53] LABS: Partial Thromboplastin Time 22.6 sec (22.0-30.0); Prothrombin Time 10.3 sec (9.0-12.0)
[2022-10-23 05:03] LABS: ALT 19 U/L (4-34); AST 19 U/L (14-36); African American GFR (CKD) >90 (>60 ml/min/1.73 sqM); Albumin 4.2 g/dL (3.5-5.0); Alkaline Phosphatase 63 U/L (38-126); Amylase 42 U/L (30-110); Anion Gap 9 mmol/L; Blood Urea Nitrogen 16 mg/dL (7-17); Calcium 9.3 mg/dL (8.4-10.2); Carbon Dioxide 24 mmol/L (22-30); Chloride 105 mmol/L (98-107); Glucose 124 mg/dL (74-99); Lipase 48 U/L (23-300); Non-African American GFR(CKD) >90 (>60 ml/min/1.73 sqM); Sodium 138 mmol/L (137-145); Total Bilirubin 0.2 mg/dL (0.2-1.3); Total Protein 6.8 g/dL (6.3-8.2)
[2022-10-23 05:20] LABS: HCG,Quantitative Serum <2.4 mIU/mL
--- NOTE | 2022-10-23 05:37 | ED ---
General Adult HPI - General Chief complaint: Vaginal Bleeding Stated complaint: Vaginal Bleeding Time Seen by Provider: 10/23/22 03:55 Source: patient, RN notes reviewed, old records reviewed Mode of arrival: ambulatory Limitations: no limitations - History of Present Illness Initial comments: Patient is a 37-year-old female with past medical history remarkable for cardiac stent on Effient, hypertension who presents emergency Department complaining of dysfunctional uterine bleeding. States she is on her period currently and has noticed that she is bleeding more than typical for her period. Recently started antiplatelet medication Effient. States she has seen some larger clots, out. States she gets somewhat nauseous when the clots come out. States she also intermittently will be weak. Is concerned about the bleeding wanted to be evaluated. Denies any abdominal pain, chest pain, shortness breath, blurry vision, lightheadedness. Denies any diarrhea. Denies any history of STDs. Denies being at this time. Presents for further evaluation at this time.Increased vaginal bleeding has been going on for 3 days. - Related Data Home Medications Medication Instructions Recorded Confirmed Buprenorphine HCl/Naloxone HCl 1 tab SL BID 09/10/22 09/25/22 [Zubsolv 5.7-1.4 mg Tablet Sl] Aspirin [Adult Low Dose Aspirin EC] 81 mg PO DAILY 09/24/22 09/25/22 Cholecalciferol [Vitamin D3 (125 125 mcg PO DAILY 09/24/22 09/25/22 Mcg = 5000 Iu)] Isosorbide Mononitrate ER [Imdur] 15 mg PO DAILY 09/24/22 09/25/22 Metoprolol Tartrate 25 mg PO DAILY 09/24/22 09/25/22 Rosuvastatin [Crestor] 20 mg PO DAILY 09/24/22 09/25/22 Previous Rx's Medication Instructions Recorded lisinopriL [Prinivil] 5 mg PO BID #0 09/12/22 Prasugrel [Effient] 10 mg PO DAILY #90 tab 09/25/22 Prasugrel [Effient] 10 mg PO DAILY #90 tablet 09/25/22 Allergies Allergy/AdvReac Type Severity Reaction Status Date / Time codeine Allergy Swelling , Verified 10/23/22 03:48 and generally did not feel well levofloxacin [From Levaquin] Allergy itching Verified 10/23/22 03:48 and did not feel well Penicillins Allergy Rash/Hives Verified 10/23/22 03:48 Sulfa (Sulfonamide Allergy Rash/Hives Verified 10/23/22 03:48 Antibiotics) and did not feel well sulfamethoxazole Allergy Itching Verified 10/23/22 03:48 [From Bactrim] trimethoprim [From Bactrim] Allergy Itching Verified 10/23/22 03:48 Review of Systems ROS Statement: Those systems with pertinent positive or pertinent negative responses have been documented in the HPI. Review of Systems: CONST: Denies fever EYES: Denies blurry vision ENT: Denies nasal congestion C/V: Denies Chest pain RESP: Denies shortness of breath GI: Denies abdominal pain : Endorses vaginal bleeding SKIN: Denies rash. MSK: Denies joint pain. NEURO: Denies headache ROS Other: All systems not noted in ROS Statement are negative. Past Medical History Past Medical History: Asthma, Chest Pain / Angina, GERD/Reflux, Hyperlipidemia, Hypertension, Osteoarthritis (OA) Additional Past Medical History / Comment(s): See Cardiology H&P. Hx polynephritis & kidney failure, frequest UTI's, anemia, irregular heart beat. History of Any Multi-Drug Resistant Organisms: None Reported Past Surgical History: Cardiac Ablation, Cholecystectomy, Heart Catheterization With Stent Additional Past Surgical History / Comment(s): Cyst removed from right forearm and back. Past Anesthesia/Blood Transfusion Reactions: No Reported Reaction, Motion Sickness Additional Past Anesthesia/Blood Transfusion Reaction / Comment(s): Hard time waking up. Mom had trouble waking up. Past Psychological History: ADD/ADHD, Anxiety, Depression Smoking Status: Current every day smoker Past Alcohol Use History: Rare Past Drug Use History: Marijuana - Past Family History Mother Family Medical History: No Reported History General Exam - General Exam Comments Initial Comments: General: Appears in no acute distress. HEAD: Normal with no signs of head trauma. EYES: PERRLA, EOMI, conjunctiva normal, no discharge. ENT: Hearing grossly intact, normal oropharynx. RESPIRATORY: Clear breath sounds bilaterally. No wheezes, rales, or rhonchi. C/V: Regular rate and rhythm. S1 and S2 auscultated, no edema, peripheral pulses 2+ and intact throughout ABD: Abd is soft, nontender, nondistended EXT: Normal range of motion, no obvious deformity SKIN: No rashes or lesions observed on exposed skin. NEURO: Alert and oriented 4. No focal deficits. Limitations: no limitations Course Vital Signs 10/23/22 10/23/22 03:49 05:25 Temperature 97.9 F 98.4 F Pulse Rate 102 H 86 Respiratory 18 16 Rate Blood Pressure 112/76 110/80 O2 Sat by Pulse 100 100 Oximetry Medical Decision Making - Medical Decision Making Based on the patient's presentation and physical exam, I'm concerned for dysfunctional uterine bleeding. Is likely secondary to her being on antiplatelet medication. She does not appear to have any significant symptoms of anemia at this time. Vital signs within acceptable limits. We will obtain basic laboratory studies, test. Pelvic exam will be performed as well as ultrasound is not available at this time. She was in agreement this plan. Pelvic exam was performed by assisting mid-level provider as well as myself. No gross bleeding. Small clot present. Patient is not hemorrhaging from her vagina. No significant active bleeding at this time. Patient's laboratory studies returned remarkable for normal coags, normal hemoglobin. Platelet count is normal as well. Patient is not . Remainder the labs are within acceptable limits. On reevaluation, patient appears and feels improved. I did offer her staying in the department until ultrasound arrives to obtain an ultrasound of her uterus which she declines at this time. She states she can follow-up with her PCP and return if needed. I do believe this is reasonable. The decision was making was made with the patient. Strict return precautions were discussed including increased bleeding as well as signs and symptoms of anemia. I discussed that she should follow-up with her supervisor parking lot as well as her PCP to discuss better management of her antiplatelet medication, and that she may didn't expect this with most of her periods moving forward. She was in agreement with this plan. I instructed the patient to follow up with their PCP in the next 1-3 days. I explained that the patient should return to the emergency department if they experience any worsening symptoms. Strict return precautions were discussed with the patient. The patient expressed understanding of these instructions. I answered all questions that the patient had. The patient was discharged home in good condition with their prescriptions and follow up information. Was pt. sent in by a medical professional or institution (, PA, PAINTER ORDNANCE, urgent care, hospital, or longterm...) When possible be specific @ -No Did you speak to anyone other than the patient for history (EMS, parent, family, police, friend...)? What history was obtained from this source @ -No Did you review nursing and triage notes (agree or disagree)? Why? @ -I reviewed and agree with nursing and triage notes Were old charts reviewed (outside hosp., previous admission, EMS record, old EKG, old radiological studies, urgent care reports/EKG's, longterm records)? Report findings @ -Yes, old charts were reviewed. Differential Diagnosis (chest pain, altered mental status, abdominal pain women, abdominal pain men, vaginal bleeding, weakness, fever, dyspnea, syncope, headache, dizziness, GI bleed, back pain, seizure, CVA, palpatations, mental health)? @ -, miscarriage, dysfunctional uterine bleeding, anemia, coagulopathy . This list is not all encompassing. EKG interpreted by me (3pts min.). @ -None done X-rays interpreted by me (1pt min.). @ -None done CT interpreted by me (1pt min.). @ -None done U/S interpreted by me (1pt. min.). @ -None done What testing was considered but not performed or refused? (CT, X-rays, U/S, labs)? Why? @ -Pelvic ultrasound was considered, however patient declines as she would have to remain in the emergency department for morning with ultrasound. Be performed. She wishes to follow-up and return if needed. What meds were considered but not given or refused? Why? @ -None Did you discuss the management of the patient with other professionals (professionals i.e. , PA, PAINTER ORDNANCE, lab, RT, psych nurse, social human services assistants, custom leather products maker, teacher, licensed loan officer assistant, case briefer)? Give summary @ -No Was smoking cessation discussed for >3mins.? @ -No Was critical care preformed (if so, how long)? @ -No Were there social determinants of health that impacted care today? How? (Homelessness, low income, unemployed, alcoholism, drug addiction, transportation, low edu. Level, literacy, decrease access to med. care, group home, rehab)? @ -No Was there de-escalation of care discussed even if they declined (Discuss DNR or withdrawal of care, Hospice)? DNR status @ -No What co-morbidities impacted this encounter? (DM, HTN, Smoking, COPD, CAD, Cancer, CVA, ARF, Chemo, Hep., AIDS, mental health diagnosis, sleep apnea, morbid obesity)? @ -Prior CAD currently on Effient. Was patient admitted / discharged? Hospital course, mention meds given and route, prescriptions, significant lab abnormalities, going to OR and other pertinent info. @ -Discharged home. See above for ED course. Undiagnosed new problem with uncertain prognosis? @ -No Drug Therapy requiring intensive monitoring for toxicity (Heparin, Nitro, Insulin, Cardizem)? @ -No Were any procedures done? @ -No Diagnosis/symptom? @ -Dysfunctional uterine bleeding, likely secondary to Effient use Acute, or Chronic, or Acute on Chronic? @ -Acute Uncomplicated (without systemic symptoms) or Complicated (systemic symptoms)? @ -Uncomplicated Side effects of treatment? @ -No Exacerbation, Progression, or Severe Exacerbation? @ -No Poses a threat to life or bodily function? How? (Chest pain, [place], [place], pneumonia, PE, COPD, DKA, ARF, appy, cholecystitis, CVA, Diverticulitis, Homicidal, Suicidal, threat to staff... and all critical care pts) @ -Yes, this continues can result in significant morbidity and mortality secondary to blood loss anemia. - Lab Data Result diagrams: 10/23/22 04:16 10/23/22 04:16 Lab Results 10/23/22 10/23/22 10/23/22 Range/Units 04:16 04:16 04:16 WBC 9.3 (3.8-10.6) k/uL RBC 4.51 (3.80-5.40) m/uL Hgb 12.2 (11.4-16.0) gm/dL Hct 36.7 (34.0-46.0) % MCV 81.4 (80.0-100.0) fL MCH 27.1 (25.0-35.0) pg MCHC 33.3 (31.0-37.0) g/dL RDW 14.2 (11.5-15.5) % Plt Count 353 (150-450) k/uL MPV 7.8 Neutrophils % 58 % Lymphocytes % 29 % Monocytes % 5 % Eosinophils % 6 % Basophils % 1 % Neutrophils # 5.4 (1.3-7.7) k/uL Lymphocytes # 2.6 (1.0-4.8) k/uL Monocytes # 0.5 (0-1.0) k/uL Eosinophils # 0.6 (0-0.7) k/uL Basophils # 0.1 (0-0.2) k/uL PT 10.3 (9.0-12.0) sec INR 1.0 (<1.2) APTT 22.6 (22.0-30.0) sec Sodium 138 (137-145) mmol/L Potassium 4.0 (3.5-5.1) mmol/L Chloride 105 (98-107) mmol/L Carbon Dioxide 24 (22-30) mmol/L Anion Gap 9 mmol/L BUN 16 (7-17) mg/dL Creatinine 0.71 (0.52-1.04) mg/dL Est GFR (CKD-EPI)AfAm >90 (>60 ml/min/1.73 sqM) Est GFR (CKD-EPI)NonAf >90 (>60 ml/min/1.73 sqM) Glucose 124 H (74-99) mg/dL Calcium 9.3 (8.4-10.2) mg/dL Total Bilirubin 0.2 (0.2-1.3) mg/dL AST 19 (14-36) U/L ALT 19 (4-34) U/L Alkaline Phosphatase 63 (38-126) U/L Total Protein 6.8 (6.3-8.2) g/dL Albumin 4.2 (3.5-5.0) g/dL Amylase 42 (30-110) U/L Lipase 48 (23-300) U/L HCG, Quant <2.4 mIU/mL Blood Type Blood Type Recheck Bld Type Recheck Status Antibody Screen Spec Expiration Date 10/23/22 Range/Units 04:16 WBC (3.8-10.6) k/uL RBC (3.80-5.40) m/uL Hgb (11.4-16.0) gm/dL Hct (34.0-46.0) % MCV (80.0-100.0) fL MCH (25.0-35.0) pg MCHC (31.0-37.0) g/dL RDW (11.5-15.5) % Plt Count (150-450) k/uL MPV Neutrophils % % Lymphocytes % % Monocytes % % Eosinophils % % Basophils % % Neutrophils # (1.3-7.7) k/uL Lymphocytes # (1.0-4.8) k/uL Monocytes # (0-1.0) k/uL Eosinophils # (0-0.7) k/uL Basophils # (0-0.2) k/uL PT (9.0-12.0) sec INR (<1.2) APTT (22.0-30.0) sec Sodium (137-145) mmol/L Potassium (3.5-5.1) mmol/L Chloride (98-107) mmol/L Carbon Dioxide (22-30) mmol/L Anion Gap mmol/L BUN (7-17) mg/dL Creatinine (0.52-1.04) mg/dL Est GFR (CKD-EPI)AfAm (>60 ml/min/1.73 sqM) Est GFR (CKD-EPI)NonAf (>60 ml/min/1.73 sqM) Glucose (74-99) mg/dL Calcium (8.4-10.2) mg/dL Total Bilirubin (0.2-1.3) mg/dL AST (14-36) U/L ALT (4-34) U/L Alkaline Phosphatase (38-126) U/L Total Protein (6.3-8.2) g/dL Albumin (3.5-5.0) g/dL Amylase (30-110) U/L Lipase (23-300) U/L HCG, Quant mIU/mL Blood Type A Positive Blood Type Recheck A Pos Bld Type Recheck Status No Antibody Screen NEGATIVE Spec Expiration Date 10/26/20222315 Disposition Clinical Impression: Dysfunctional uterine bleeding Disposition: HOME SELF-CARE Condition: Good Instructions (If sedation given, give patient instructions): Dysmenorrhea (ED), Abnormal (Dysfunctional) Uterine Bleeding (ED) Is patient prescribed a controlled substance at d/c from ED?: No Referrals: [facility] [Primary Care Provider] - 1-2 days Time of Disposition: 05:30
[2022-10-23 05:39] VITALS: BP 110/80; PULSE 86; RESP 16; TEMP 98.4
== END 2022-10-23 05:41 | disposition home or self-care (01) ==
LOC: EC 03:40
DX: N93.8 Other specified abnormal uterine and vaginal bleeding (principal); J45.909 Unspecified asthma, uncomplicated; K21.9 Gastro-esophageal reflux disease without esophagitis; E78.5 Hyperlipidemia, unspecified; I10 Essential (primary) hypertension; M19.90 Unspecified osteoarthritis, unspecified site; F41.9 Anxiety disorder, unspecified; F32.A Depression, unspecified; F17.200 Nicotine dependence, unspecified, uncomplicated; F12.90 Cannabis use, unspecified, uncomplicated; Z88.2 Allergy status to sulfonamides; Z88.0 Allergy status to penicillin; Z88.5 Allergy status to narcotic agent; Z79.82 Long term (current) use of aspirin; Z79.899 Other long term (current) drug therapy
CPT/HCPCS: 36415; 86900; 86901; 80053; 82150; 83690; 85025; 85610; 85730; 86850; 84702; 99284; 96374; J2405

== ENCOUNTER 2023-06-21 07:08 | Emergency (ER) | payer BC, OTHER ==
[2023-06-21 07:20] VITALS: TEMP 98.4
[2023-06-21] MEDS ORDERED: KETOROLAC 15 MG/ML 1 ML VIAL IM STA (07:41)
[2023-06-21] MEDS ORDERED: CLINDAMYCIN 150 MG CAP PO STA (07:42)
[2023-06-21] MEDS ORDERED: LIDOCAINE 1% INJ 10MG/ML (20 ML MDV) SQ ONE (07:42)
--- NOTE | 2023-06-21 07:45 | ED ---
Skin/Abscess/FB HPI - General Chief complaint: Skin/Abscess/Foreign Body Stated complaint: Lump under armpit Time Seen by Provider: 06/21/23 07:38 Source: patient, RN notes reviewed Mode of arrival: ambulatory Limitations: no limitations - History of Present Illness Initial comments: This is a 38-year-old female who presents to the emergency department for a lump in her left armpit. Patient states that she noticed this over the last couple of days. She did shave her armpit with her 's electric razor, which she has not done before. This is increasingly painful and she has started to notice drainage from this area. Denies any fevers or chills. Denies any fevers, chills, sore throat, cough, dyspnea, chest pain, palpitations, abdominal pain, nausea, vomiting, diarrhea, back pain, or headaches. MD complaint: abscess/boil - Related Data Home Medications Medication Instructions Recorded Confirmed Buprenorphine HCl/Naloxone HCl 1 tab SL BID 09/10/22 09/25/22 [Zubsolv 5.7-1.4 mg Tablet Sl] Aspirin [Adult Low Dose Aspirin EC] 81 mg PO DAILY 09/24/22 09/25/22 Cholecalciferol [Vitamin D3 (125 125 mcg PO DAILY 09/24/22 09/25/22 Mcg = 5000 Iu)] Isosorbide Mononitrate ER [Imdur] 15 mg PO DAILY 09/24/22 09/25/22 Metoprolol Tartrate 25 mg PO DAILY 09/24/22 09/25/22 Rosuvastatin [Crestor] 20 mg PO DAILY 09/24/22 09/25/22 Previous Rx's Medication Instructions Recorded lisinopriL [Prinivil] 5 mg PO BID #0 09/12/22 Prasugrel [Effient] 10 mg PO DAILY #90 tab 09/25/22 Prasugrel [Effient] 10 mg PO DAILY #90 tablet 09/25/22 Clindamycin [Cleocin] 150 mg PO Q8H 7 Days #63 capsule 06/21/23 Ibuprofen [Motrin] 800 mg PO Q8H PRN #30 tab 06/21/23 Allergies Allergy/AdvReac Type Severity Reaction Status Date / Time codeine Allergy Swelling , Verified 06/21/23 07:19 and generally did not feel well levofloxacin [From Levaquin] Allergy itching Verified 06/21/23 07:19 and did not feel well Penicillins Allergy Rash/Hives Verified 06/21/23 07:19 Sulfa (Sulfonamide Allergy Rash/Hives Verified 06/21/23 07:19 Antibiotics) and did not feel well sulfamethoxazole Allergy Itching Verified 06/21/23 07:19 [From Bactrim] trimethoprim [From Bactrim] Allergy Itching Verified 06/21/23 07:19 Review of Systems ROS Statement: Those systems with pertinent positive or pertinent negative responses have been documented in the HPI. ROS Other: All systems not noted in ROS Statement are negative. Past Medical History Past Medical History: Asthma, Chest Pain / Angina, GERD/Reflux, Hyperlipidemia, Hypertension, Osteoarthritis (OA) Additional Past Medical History / Comment(s): See Cardiology H&P. Hx polynephritis & kidney failure, frequest UTI's, anemia, irregular heart beat. History of Any Multi-Drug Resistant Organisms: None Reported Past Surgical History: Cardiac Ablation, Cholecystectomy, Heart Catheterization With Stent Additional Past Surgical History / Comment(s): Cyst removed from right forearm and back. Past Anesthesia/Blood Transfusion Reactions: No Reported Reaction, Motion Sickness Additional Past Anesthesia/Blood Transfusion Reaction / Comment(s): Hard time waking up. Mom had trouble waking up. Past Psychological History: ADD/ADHD, Anxiety, Depression Smoking Status: Current every day smoker Past Alcohol Use History: Rare Past Drug Use History: Marijuana - Past Family History Mother Family Medical History: No Reported History General Exam Limitations: no limitations General appearance: alert, in no apparent distress Head exam: Present: atraumatic, normocephalic, normal inspection Respiratory exam: Present: normal lung sounds bilaterally. Absent: respiratory distress, wheezes, rales, rhonchi, stridor Cardiovascular Exam: Present: regular rate, normal rhythm, normal heart sounds. Absent: systolic murmur, diastolic murmur, rubs, gallop, clicks Neurological exam: Present: alert, oriented X3, CN II-XII intact Psychiatric exam: Present: normal affect, normal mood Skin exam: Present: other (Abscess in the left axilla with a punctate area in the center. Minor active drainage.) Course Vital Signs 06/21/23 06/21/23 06/21/23 07:17 07:58 08:44 Temperature 98.4 F Pulse Rate 89 86 86 Respiratory 20 16 16 Rate Blood Pressure 150/87 140/80 130/80 O2 Sat by Pulse 99 98 98 Oximetry Procedures - Incision & Drainage Consent Obtained: verbal consent Indication: Abscess Site: other (left axilla) Size (cm): 3 Anesthetic Used: lidocaine 1% Amount (mLs): 3 I&D Cleaning Method: Alcohol Wipe Sterile Field Used?: Yes Scalpel Used: #11 I&D Drainage Obtained: Pus, Blood Loculation Noted: probing needed to break Packing: Iodoform Medical Decision Making - Medical Decision Making This is a 38-year-old female who presents to the emergency department for a lump in her armpit. Was pt. sent in by a medical professional or institution? @ -No Did you speak to anyone other than the patient for history? @ -No Did you review nursing and triage notes? @ -Yes, and I agree, it is accurate with regards to the patient's symptoms. Were old charts reviewed? @ -No Differential Diagnosis? @ -Differential Armpit lump: Abscess, lipoma, insect bite, tumor, this is not meant to be an all-inclusive list. EKG interpreted by me (3pts min.)? @ -Not obtained X-rays interpreted by me (1pt min.)? @ -Not obtained CT interpreted by me (1pt min.)? @ -Not obtained U/S interpreted by me (1pt. min.)? @ -Not obtained What testing was considered but not performed? (CT, X-rays, U/S, labs)? Why? @ -None What meds were considered but not given? Why? @ -None Did you discuss the management of the patient with other professionals? @ -No Did you reconcile home meds? @ -No Was smoking cessation discussed for >3mins.? @ -No Was critical care preformed (if so, how long)? @ -No Were there social determinants of health that impacted care today? How? (Homelessness, low income, unemployed, alcoholism, drug addiction, transportation, low edu. Level, literacy, decrease access to med. care, long term, rehab)? @ -No Was there de-escalation of care discussed even if they declined? (Discuss DNR or withdrawal of care, Hospice)? @ -No What co-morbidities impacted this encounter? (DM, HTN, Smoking, COPD, CAD, Cancer, CVA, Hep., AIDS, mental health diagnosis, sleep apnea, morbid obesity)? @ -None Was patient admitted / discharged? @ -Discharged. Physical examination is consistent with an abscess. Incision and drainage was performed and a large amount of blood and purulent material was expressed. This was packed with iodoform gauze. Advised to remove about an inch of this each day. We also discussed warm compresses to continue to express additional drainage. Prescription for clindamycin and Ibuprofen provided with dosing instructions reviewed. Advised taking Tylenol with the Ibuprofen for pain management. Undiagnosed new problem with uncertain prognosis? @ -None Drug Therapy requiring intensive monitoring for toxicity (Heparin, Nitro, Insulin, Cardizem)? @ -None Were any procedures done? @ -Incision and drainage Diagnosis/symptom? @ -Abscess of left axilla Acute, or Chronic, or Acute on Chronic? @ -Acute Uncomplicated (without systemic symptoms) or Complicated (systemic symptoms)? @ -Uncomplicated Side effects of treatment? @ -None Exacerbation, Progression, or Severe Exacerbation] @ -Not applicable Poses a threat to life or bodily function? @ -No Return precautions reviewed in depth, the patient is instructed to return to the emergency department with any new, worsening, or concerning symptoms. Patient verbalized understanding. This case was discussed in detail with the attending ED physician, Dr. Bliss. Presentation, findings, and treatment plan discussed in detail as well. Disposition Clinical Impression: Abscess of axilla, left Disposition: HOME SELF-CARE Instructions (If sedation given, give patient instructions): Abscess Incision and Drainage (ED), Abscess (ED) Additional Instructions: Return to the emergency department with any new, worsening, or concerning symptoms. Take the antibiotic as prescribed for 7 days. Alternate with ib uprofen and Tylenol as needed for pain relief. Remove about an inch of packing daily. If this does completely come out that is okay, it does not need to be replaced. You can apply warm compresses to continue to express drainage from this area. Over the counter dermaplast spray with the registered clinical dietitian specifically can be purchased. This will help numb the area and also provide antibacterial effects. Follow up with your primary care provider in 1-2 days. Prescriptions: Clindamycin [Cleocin] 150 mg PO Q8H 7 Days #63 capsule Ibuprofen [Motrin] 800 mg PO Q8H PRN #30 tab PRN Reason: Pain Is patient prescribed a controlled substance at d/c from ED?: No Referrals: [facility] [Primary Care Provider] - 1-2 days
[2023-06-21 08:00] VITALS: PULSE 86; RESP 16
[2023-06-21] MEDS ORDERED: ONDANSETRON 4 MG ODT STARTER PACK 2 TAB BTL PO STA (08:28)
[2023-06-21] MEDS ORDERED: traMADol 50 MG STARTER PACK 3 TAB BTL PO STA (08:28)
[2023-06-21 08:45] VITALS: BP 130/80
== END 2023-06-21 08:44 | disposition home or self-care (01) ==
LOC: EC 07:08
DX: L02.412 Cutaneous abscess of left axilla (principal); I10 Essential (primary) hypertension; J45.909 Unspecified asthma, uncomplicated; F17.200 Nicotine dependence, unspecified, uncomplicated; F12.90 Cannabis use, unspecified, uncomplicated; Z79.82 Long term (current) use of aspirin; Z79.899 Other long term (current) drug therapy; Z88.0 Allergy status to penicillin; Z88.1 Allergy status to other antibiotic agents; Z88.2 Allergy status to sulfonamides; Z88.5 Allergy status to narcotic agent; Z90.49 Acquired absence of other specified parts of digestive tract
CPT/HCPCS: 10060; 99282; 96372; J2001; J1885; S0119

== ENCOUNTER 2023-11-29 23:20 | Emergency (ER) | payer OTHER ==
[2023-11-29 23:41] VITALS: TEMP 98.5
[2023-11-29] MEDS: SODIUM CHLORIDE 0.9% 1,000 ML IV STA (23:58)
[2023-11-29] MEDS: ONDANSETRON 4 MG/2 ML VIAL IVP STA (23:59)
[2023-11-29] MEDS: KETOROLAC 15 MG/ML 1 ML VIAL IVP STA (23:59)
[2023-11-30 00:05] LABS: Anisocytosis Slight; Basophils % (A) 0 %; Eosinophils # (A) 0.5 k/uL (0-0.7); Eosinophils % (A) 4 %; HCT 37.1 % (34.0-46.0); HGB 11.5 gm/dL (11.4-16.0); Hypochromasia Moderate; Lymphocytes # (A) 3.2 k/uL (1.0-4.8); Lymphocytes % (A) 28 %; MCH 23.2 pg (25.0-35.0); Mean Platelet Volume 7.9; Microcytosis Slight; Monocytes # (A) 0.4 k/uL (0-1.0); Monocytes % (A) 4 %; Neutrophils # (A) 7.1 k/uL (1.3-7.7); Neutrophils % (A) 62 %; Platelet Count 409 k/uL (150-450); RBC 4.94 m/uL (3.80-5.40); RDW 16.5 % (11.5-15.5); WBC 11.4 k/uL (3.8-10.6)
[2023-11-30 00:15] LABS: ALT 17 U/L (4-34); AST 23 U/L (14-36); African American GFR (CKD) >90 (>60 ml/min/1.73 sqM); Albumin 4.3 g/dL (3.5-5.0); Alkaline Phosphatase 70 U/L (38-126); Amylase 53 U/L (30-110); Anion Gap 6 mmol/L; Blood Urea Nitrogen 14 mg/dL (7-17); Calcium 9.5 mg/dL (8.4-10.2); Carbon Dioxide 24 mmol/L (22-30); Chloride 108 mmol/L (98-107); Glucose 108 mg/dL (74-99); Lipase 53 U/L (23-300); Non-African American GFR(CKD) >90 (>60 ml/min/1.73 sqM); Sodium 138 mmol/L (137-145); Total Bilirubin 0.3 mg/dL (0.2-1.3)
[2023-11-30 00:16] LABS: Appearance,Urine Cloudy (Clear); Bacteria,Urine Rare /hpf; Bilirubin,Urine Negative (Negative); Blood,Urine Small (Negative); Color,Urine Yellow; Glucose,Urine (UA) Negative (Negative); Ketones,Urine Negative (Negative); Leukocyte Esterase,Urine Negative (Negative); Mucus,Urine Many /hpf; Nitrite,Urine Negative (Negative); PH, Urine 5.5 (5.0-8.0); Protein,Urine Negative (Negative); RBC,Urine 1 /hpf (0-5); Specific Gravity,Urine 1.026 (1.001-1.035); Squamous Epithelial Cell,Urine 7 /hpf (0-4); Urobilinogen,Urine <2.0 mg/dL (<2.0); WBC,Urine 4 /hpf (0-5)
--- NOTE | 2023-11-30 00:17 | XR ---
EXAMINATION TYPE: XR KUB DATE OF EXAM: 11/30/2023 12:09 AM CLINICAL HISTORY: Lower abdominal pain with nausea TECHNIQUE: Two Upright KUB images of the abdomen are obtained. COMPARISON: None. FINDINGS: Scattered gas is seen in non-distended small bowel loops. Slightly gas prominent colonic lo ops in the upper to mid abdomen likely within transverse colon. Gas and fecal material is seen in non -distended colon. There is no visceromegaly, pneumoperitoneum, or abnormal calcification appreciated. The lung bases are clear and the osseous structures are intact. IMPRESSION: Overall nonspecific but likely nonobstructive bowel gas pattern.
--- NOTE | 2023-11-30 00:58 | ED ---
Abdominal Pain HPI - General Chief Complaint: Abdominal Pain Stated Complaint: Abdominal Pain Time Seen by Provider: 11/29/23 23:25 Source: patient Mode of arrival: ambulatory Limitations: no limitations - History of Present Illness Initial Comments: 38-year-old female presenting with chief complaint of abdominal pain. This pain spans across the lower abdomen, states that it does have some radiation to the back as well. She states it is a cramping-like sensation that waxes and wanes. She states that she does feel constipated, she has a history of constipation. No diarrhea, hematochezia, melena. She admits to nausea with no vomiting. No fever, chills, cough, congestion, sore throat, rash, dizziness, weakness. No chest pain or difficulty breathing. No dysuria, hematuria, urgency, frequency. No vaginal bleeding or discharge. - Related Data Home Medications Medication Instructions Recorded Confirmed Buprenorphine HCl/Naloxone HCl 1 tab SL BID 09/10/22 09/25/22 [Zubsolv 5.7-1.4 mg Tablet Sl] Aspirin [Adult Low Dose Aspirin EC] 81 mg PO DAILY 09/24/22 09/25/22 Cholecalciferol [Vitamin D3 (125 125 mcg PO DAILY 09/24/22 09/25/22 Mcg = 5000 Iu)] Isosorbide Mononitrate ER [Imdur] 15 mg PO DAILY 09/24/22 09/25/22 Metoprolol Tartrate 25 mg PO DAILY 09/24/22 09/25/22 Rosuvastatin [Crestor] 20 mg PO DAILY 09/24/22 09/25/22 Previous Rx's Medication Instructions Recorded lisinopriL [Prinivil] 5 mg PO BID #0 09/12/22 Prasugrel [Effient] 10 mg PO DAILY #90 tab 09/25/22 Prasugrel [Effient] 10 mg PO DAILY #90 tablet 09/25/22 Clindamycin [Cleocin] 150 mg PO Q8H 7 Days #63 capsule 06/21/23 Ibuprofen [Motrin] 800 mg PO Q8H PRN #30 tab 06/21/23 Allergies Allergy/AdvReac Type Severity Reaction Status Date / Time codeine Allergy Swelling , Verified 11/29/23 23:24 and generally did not feel well levofloxacin [From Levaquin] Allergy itching Verified 11/29/23 23:24 and did not feel well Penicillins Allergy Rash/Hives Verified 11/29/23 23:24 Sulfa (Sulfonamide Allergy Rash/Hives Verified 11/29/23 23:24 Antibiotics) and did not feel well sulfamethoxazole Allergy Itching Verified 11/29/23 23:24 [From Bactrim] trimethoprim [From Bactrim] Allergy Itching Verified 11/29/23 23:24 Review of Systems ROS Statement: Those systems with pertinent positive or pertinent negative responses have been documented in the HPI. ROS Other: All systems not noted in ROS Statement are negative. Past Medical History Past Medical History: Asthma, Chest Pain / Angina, GERD/Reflux, Hyperlipidemia, Hypertension, Osteoarthritis (OA) Additional Past Medical History / Comment(s): See Cardiology H&P. Hx polynephrit is & kidney failure, frequest UTI's, anemia, irregular heart beat. History of Any Multi-Drug Resistant Organisms: None Reported Past Surgical History: Cardiac Ablation, Cholecystectomy, Heart Catheterization With Stent Additional Past Surgical History / Comment(s): Cyst removed from right forearm and back. Past Anesthesia/Blood Transfusion Reactions: No Reported Reaction, Motion Sickness Additional Past Anesthesia/Blood Transfusion Reaction / Comment(s): Hard time waking up. Mom had trouble waking up. Past Psychological History: ADD/ADHD, Anxiety, Depression Smoking Status: Current every day smoker Past Alcohol Use History: Rare Past Drug Use History: Marijuana - Past Family History Mother Family Medical History: No Reported History General Exam Limitations: no limitations General appearance: alert, in no apparent distress Head exam: Present: atraumatic, normocephalic Eye exam: Present: normal appearance Neck exam: Present: normal inspection Respiratory exam: Present: normal lung sounds bilaterally. Absent: respiratory distress, wheezes, rales, rhonchi, stridor Cardiovascular Exam: Present: regular rate, normal rhythm, normal heart sounds. Absent: systolic murmur, diastolic murmur, rubs, gallop, clicks GI/Abdominal exam: Present: soft, tenderness (Patient has nonspecific discomfort in all 4 quadrants on exam, no guarding). Absent: distended, guarding, rebound, rigid Neurological exam: Present: alert, oriented X3 Psychiatric exam: Present: normal affect, normal mood Skin exam: Present: warm, dry Course Vital Signs 11/29/23 11/30/23 23:22 01:40 Temperature 98.5 F Pulse Rate 109 H 67 Respiratory 20 12 Rate Blood Pressure 134/95 139/98 O2 Sat by Pulse 100 99 Oximetry Medical Decision Making - Medical Decision Making Was pt. sent in by a medical professional or institution (RADHA Parr, CLEANING LABORER, urgent care, hospital, or prison...) When possible be specific @ -No Did you speak to anyone other than the patient for history (EMS, parent, family, police, friend...)? What history was obtained from this source @ -No Did you review nursing and triage notes (agree or disagree)? Why? @ -I reviewed and agree with nursing and triage notes Were old charts reviewed (outside hosp., previous admission, EMS record, old EKG, old radiological studies, urgent care reports/EKG's, prison records)? Report findings @ -No old charts were reviewed Differential Diagnosis (chest pain, altered mental status, abdominal pain women, abdominal pain men, vaginal bleeding, weakness, fever, dyspnea, syncope, headache, dizziness, GI bleed, back pain, seizure, CVA, palpatations, mental he alth, musculoskeletal)? @ -MDM Differential Abdominal Pain Women: Appendicitis, Cholecystitis, diverticulosis, ischemic bowel, pancreatitis, hepatitis, UTI, gastroenteritis, AAA, incarcerated hernia, bowel obstruction, constipation, inflammatory bowel, hepatitis, peptic ulcer disease, splenic infa rction, perforated viscus, vulvitis, ovarian torsion, PID, kidney stone, placenta abruption... This is not meant to be an all-inclusive list EKG interpreted by me (3pts min.). @ -As above X-rays interpreted by me (1pt min.). @ -X-ray shows overall nonspecific but likely nonobstructive bowel gas pattern. By my interpretation there does appear to be a fair amount of constipation noted. CT interpreted by me (1pt min.). @ -None done U/S interpreted by me (1pt. min.). @ -None done What testing was considered but not performed or refused? (CT, X-rays, U/S, labs)? Why? @ -None What meds were considered but not given or refused? Why? @ -None Did you discuss the management of the patient with other professionals (professionals i.e. RADHA Parr, CLEANING LABORER, lab, RT, psych nurse, licensed social worker, urban and regional planner, t eacher, chief development officer, case aide)? Give summary @ -No Was smoking cessation discussed for >3mins.? @ -No Was critical care preformed (if so, how long)? @ -No Were there social determinants of health that impacted care today? How? (Homelessness, low income, unemployed, alcoholism, drug addiction, transportation, low edu. Level, literacy, decrease access to med. care, usp, rehab)? @ -No Was there de-escalation of care discussed even if they declined (Discuss DNR or withdrawal of care, Hospice)? DNR status @ -No What co-morbidities impacted this encounter? (DM, HTN, Smoking, COPD, CAD, Cancer, CVA, ARF, Chemo, Hep., AIDS, mental health diagnosis, sleep apnea, morbid obesity)? @ -None Was patient admitted / discharged? Hospital course, mention meds given and route, prescriptions, significant lab abnormalities, going to OR and other pertinent info. @ -38-year-old female presenting with chief complaint of cramping abdominal pain, nonlocalized. Nausea with no vomiting. History and physical exam are conducted. WBC 11.4. Urine shows no infectious process or bleeding. Negative hCG. KUB shows evidence of constipation. Patient does state that she feels constipated and has a history of constipation. On reassessment patient reports improvement in her symptoms after IV fluids and Toradol. She is educated on today's findings. She is instructed to take prim-aow-[id number] magnesium citrate or MiraLAX to help alleviate her constipation. Provided with strict return parameters. Discharged home. Follow-up with PCP. Report back to ER with any new or worsening symptoms. Discussed return parameters and answered all questions. Patient conveyed verbal understanding and agreed to the plan. I discussed this case in detail with my attending Dr. Blackman Undiagnosed new problem with uncertain prognosis? @ -No Drug Therapy requiring intensive monitoring for toxicity (Heparin, Nitro, Insulin, Cardizem)? @ -No Were any procedures done? @ -No Diagnosis/symptom? @ -Abdominal pain, constipation Acute, or Chronic, or Acute on Chronic? @ -Acute Uncomplicated (without systemic symptoms) or Complicated (systemic symptoms)? @ -Uncomplicated Side effects of treatment? @ -No Exacerbation, Progression, or Severe Exacerbation? @ -No Poses a threat to life or bodily function? How? (Chest pain, [place], VA, pneumonia, PE, COPD, DKA, ARF, appy, cholecystitis, CVA, Diverticulitis, Homicidal, Suicidal, threat to staff... and all critical care pts) @ -Unlikely - Lab Data Result diagrams: 11/29/23 23:43 11/29/23 23:55 Lab Results 11/29/23 11/29/23 11/29/23 Range/Units 23:43 23:43 23:43 WBC 11.4 H (3.8-10.6) k/uL RBC 4.94 (3.80-5.40) m/uL Hgb 11.5 (11.4-16.0) gm/dL Hct 37.1 (34.0-46.0) % MCV 75.0 L (80.0-100.0) fL MCH 23.2 L (25.0-35.0) pg MCHC 31.0 (31.0-37.0) g/dL RDW 16.5 H (11.5-15.5) % Plt Count 409 (150-450) k/uL MPV 7.9 Neutrophils % 62 % Lymphocytes % 28 % Monocytes % 4 % Eosinophils % 4 % Basophils % 0 % Neutrophils # 7.1 (1.3-7.7) k/uL Lymphocytes # 3.2 (1.0-4.8) k/uL Monocytes # 0.4 (0-1.0) k/uL Eosinophils # 0.5 (0-0.7) k/uL Basophils # 0.0 (0-0.2) k/uL Hypochromasia Moderate Anisocytosis Slight Microcytosis Slight Sodium (137-145) mmol/L Potassium (3.5-5.1) mmol/L Chloride (98-107) mmol/L Carbon Dioxide (22-30) mmol/L Anion Gap mmol/L BUN (7-17) mg/dL Creatinine (0.52-1.04) mg/dL Est GFR (CKD-EPI)AfAm (>60 ml/min/1.73 sqM) Est GFR (CKD-EPI)NonAf (>60 ml/min/1.73 sqM) Glucose (74-99) mg/dL Plasma Lactic Acid [place] (0.7-2.0) mmol/L Calcium (8.4-10.2) mg/dL Total Bilirubin (0.2-1.3) mg/dL AST (14-36) U/L ALT (4-34) U/L Alkaline Phosphatase (38-126) U/L Total Protein (6.3-8.2) g/dL Albumin (3.5-5.0) g/dL Amylase (30-110) U/L Lipase (23-300) U/L Urine Color Yellow Urine Appearance Cloudy H (Clear) Urine pH 5.5 (5.0-8.0) Ur Specific [place] 1.026 (1.001-1.035) Urine Protein Negative (Negative) Urine Glucose (UA) Negative (Negative) Urine Ketones Negative (Negative) Urine Blood Small H (Negative) Urine Nitrite Negative (Negative) Urine Bilirubin Negative (Negative) Urine Urobilinogen <2.0 (<2.0) mg/dL Ur Leukocyte Esterase Negative (Negative) Urine RBC 1 (0-5) /hpf Urine WBC 4 (0-5) /hpf Ur Squamous Epith Cells 7 H (0-4) /hpf Urine Bacteria Rare H (None) /hpf Urine Mucus Many H (None) /hpf Urine HCG, Qual Not Detected (Not Detectd) 11/29/23 11/29/23 Range/Units 23:55 23:55 WBC (3.8-10.6) k/uL RBC (3.80-5.40) m/uL Hgb (11.4-16.0) gm/dL Hct (34.0-46.0) % MCV (80.0-100.0) fL MCH (25.0-35.0) pg MCHC (31.0-37.0) g/dL RDW (11.5-15.5) % Plt Count (150-450) k/uL MPV Neutrophils % % Lymphocytes % % Monocytes % % Eosinophils % % Basophils % % Neutrophils # (1.3-7.7) k/uL Lymphocytes # (1.0-4.8) k/uL Monocytes # (0-1.0) k/uL Eosinophils # (0-0.7) k/uL Basophils # (0-0.2) k/uL Hypochromasia Anisocytosis Microcytosis Sodium 138 (137-145) mmol/L Potassium 4.0 (3.5-5.1) mmol/L Chloride 108 H (98-107) mmol/L Carbon Dioxide 24 (22-30) mmol/L Anion Gap 6 mmol/L BUN 14 (7-17) mg/dL Creatinine 0.68 (0.52-1.04) mg/dL Est GFR (CKD-EPI)AfAm >90 (>60 ml/min/1.73 sqM) Est GFR (CKD-EPI)NonAf >90 (>60 ml/min/1.73 sqM) Glucose 108 H (74-99) mg/dL Plasma Lactic Acid [place] 1.1 (0.7-2.0) mmol/L Calcium 9.5 (8.4-10.2) mg/dL Total Bilirubin 0.3 (0.2-1.3) mg/dL AST 23 (14-36) U/L ALT 17 (4-34) U/L Alkaline Phosphatase 70 (38-126) U/L Total Protein 7.0 (6.3-8.2) g/dL Albumin 4.3 (3.5-5.0) g/dL Amylase 53 (30-110) U/L Lipase 53 (23-300) U/L Urine Color Urine Appearance (Clear) Urine pH (5.0-8.0) Ur Specific [place] (1.001-1.035) Urine Protein (Negative) Urine Glucose (UA) (Negative) Urine Ketones (Negative) Urine Blood (Negative) Urine Nitrite (Negative) Urine Bilirubin (Negative) Urine Urobilinogen (<2.0) mg/dL Ur Leukocyte Esterase (Negative) Urine RBC (0-5) /hpf Urine WBC (0-5) /hpf Ur Squamous Epith Cells (0-4) /hpf Urine Bacteria (None) /hpf Urine Mucus (None) /hpf Urine HCG, Qual (Not Detectd) Disposition Clinical Impression: Constipation, Abdominal pain Disposition: HOME SELF-CARE Condition: Good Instructions (If sedation given, give patient instructions): Constipation (ED), High Fiber Diet (ED), Abdominal Pain (ED) Additional Instructions: Follow-up with PCP. Report back to ER with any new or worsening symptoms. Take [id number] MiraLAX or magnesium citrate to alleviate constipation Is patient prescribed a controlled substance at d/c from ED?: No Referrals: [facility] [Primary Care Provider] - 1-2 days Time of Disposition: 00:58
[2023-11-30 01:59] VITALS: BP 139/98; PULSE 67; RESP 12
== END 2023-11-30 01:47 | disposition home or self-care (01) ==
LOC: EC 23:20
DX: K59.00 Constipation, unspecified (principal); I10 Essential (primary) hypertension; J45.909 Unspecified asthma, uncomplicated; E78.5 Hyperlipidemia, unspecified; F17.200 Nicotine dependence, unspecified, uncomplicated; F12.90 Cannabis use, unspecified, uncomplicated; Z79.82 Long term (current) use of aspirin; Z79.899 Other long term (current) drug therapy; Z88.0 Allergy status to penicillin; Z88.1 Allergy status to other antibiotic agents; Z88.2 Allergy status to sulfonamides; Z88.5 Allergy status to narcotic agent; Z90.49 Acquired absence of other specified parts of digestive tract
CPT/HCPCS: 36415; 80053; 82150; 83605; 83690; 85025; 81001; 81025; 74018; 99284; 96374; 96375; 96361 ×2; J2405; J1885

== ENCOUNTER 2024-06-11 03:11 | Emergency (ER) | payer OTHER ==
[2024-06-11 03:21] VITALS: BP 118/83; PULSE 103; RESP 18; TEMP 97.9
--- NOTE | 2024-06-11 05:08 | ED ---
URI HPI - General Chief Complaint: Upper Respiratory Infection Stated Complaint: Chest pain, Headache, Covid+ Source: patient, RN notes reviewed, old records reviewed Mode of arrival: ambulatory Limitations: no limitations - History of Present Illness Initial Comments: This is a 39-year-old female to ER for evaluation of recent diagnosis of coronavirus feels weak lightheaded, body aches and pains feeling unwell. Patient has mild cough no congestion no shortness of breath. Patient does feel like she has possible BV MD Complaint: fever, cough, nasal congestion, sinus pain -: days(s) Severity: moderate Severity scale (1-10): 5 Quality: burning, sharp, dull Consistency: constant Improves With: nothing Worsens With: nothing Associated Symptoms: chills, myalgias, rhinorrhea, nasal congestion, sore throat, cough Treatments Prior to Arrival: none - Related Data Home Medications Medication Instructions Recorded Confirmed Buprenorphine HCl/Naloxone HCl 1 tab SL BID 09/10/22 09/25/22 [Zubsolv 5.7-1.4 mg Tablet Sl] Aspirin [Adult Low Dose Aspirin EC] 81 mg PO DAILY 09/24/22 09/25/22 Cholecalciferol [Vitamin D3 (125 125 mcg PO DAILY 09/24/22 09/25/22 Mcg = 5000 Iu)] Isosorbide Mononitrate ER [Imdur] 15 mg PO DAILY 09/24/22 09/25/22 Metoprolol Tartrate 25 mg PO DAILY 09/24/22 09/25/22 Rosuvastatin [Crestor] 20 mg PO DAILY 09/24/22 09/25/22 Previous Rx's Medication Instructions Recorded lisinopriL [Prinivil] 5 mg PO BID #0 09/12/22 Prasugrel [Effient] 10 mg PO DAILY #90 tab 09/25/22 Prasugrel [Effient] 10 mg PO DAILY #90 tablet 09/25/22 Clindamycin [Cleocin] 150 mg PO Q8H 7 Days #63 capsule 06/21/23 Ibuprofen [Motrin] 800 mg PO Q8H PRN #30 tab 06/21/23 metroNIDAZOLE [Flagyl] 500 mg PO BID #14 tab 06/11/24 Allergies Allergy/AdvReac Type Severity Reaction Status Date / Time codeine Allergy Swelling , Verified 06/13/24 09:52 and generally did not feel well levofloxacin [From Levaquin] Allergy itching Verified 06/13/24 09:52 and did not feel well Penicillins Allergy Rash/Hives Verified 06/13/24 09:52 Sulfa (Sulfonamide Allergy Rash/Hives Verified 06/13/24 09:52 Antibiotics) and did not feel well sulfamethoxazole Allergy Itching Verified 06/13/24 09:52 [From Bactrim] trimethoprim [From Bactrim] Allergy Itching Verified 06/13/24 09:52 Review of Systems ROS Statement: Those systems with pertinent positive or pertinent negative responses have been documented in the HPI. ROS Other: All systems not noted in ROS Statement are negative. Past Medical History Past Medical History: Asthma, Chest Pain / Angina, GERD/Reflux, Hyperlipidemia, Hypertension, Osteoarthritis (OA) Additional Past Medical History / Comment(s): See Cardiology H&P. Hx polynephritis & kidney failure, frequest UTI's, anemia, irregular heart beat. History of Any Multi-Drug Resistant Organisms: None Reported Past Surgical History: Cardiac Ablation, Cholecystectomy, Heart Catheterization With Stent Additional Past Surgical History / Comment(s): Cyst removed from right forearm and back. Past Anesthesia/Blood Transfusion Reactions: No Reported Reaction, Motion Sickness Additional Past Anesthesia/Blood Transfusion Reaction / Comment(s): Hard time waking up. Mom had trouble waking up. Past Psychological History: ADD/ADHD, Anxiety, Depression Smoking Status: Current every day smoker Past Alcohol Use History: Rare Past Drug Use History: Marijuana - Past Family History Mother Family Medical History: No Reported History General Exam Limitations: no limitations Course Vital Signs 06/11/24 03:17 Temperature 97.9 F Pulse Rate 103 H Respiratory 18 Rate Blood Pressure 118/83 O2 Sat by Pulse 100 Oximetry - Reevaluation(s) Reevaluation #1: 06/11/24 06:24 Medical records reviewed Reevaluation #2: 06/11/24 06:24 Patient symptoms improving Reevaluation #3: 06/11/24 06:24 Patient informed of results questions answered Reevaluation #4: Was pt. sent in by a medical professional or institution (, PA, RULES EXAMINER, urgent care, hospital, or [place] [facility] [place] facility...) When possible be specific @ -no Did you speak to anyone other than the patient for history (EMS, parent, family, police, friend...)? What history was obtained from this source @ -no Did you review nursing and triage notes (agree or disagree)? Why? @ -agree Are old charts reviewed (outside hosp., previous admission, EMS record, old EKG, old radiological studies, urgent care reports/EKG's, [place] health [place] facility records)? Report findings @ -yes Differential Diagnosis (chest pain, altered mental status, abdominal pain women, abdominal pain men, vaginal bleeding, weakness, fever, dyspnea, syncope, headache, dizziness, GI bleed, back pain, seizure, CVA, palpatations, mental health, musculoskeletal)? @ -prior EKG interpreted by me (3pts min.). @ -no X-rays interpreted by me (1pt min.). @ -yes negative for acute disease CT interpreted by me (1pt min.). @ -no U/S interpreted by me (1pt. min.). @ -no What testing was considered but not performed or refused? (CT, X-rays, U/S, labs)? Why? @ -none What meds were considered but not given or refused? Why? @ -none Did you discuss the management of the patient with other professionals (professionals i.e. , PA, RULES EXAMINER, lab, RT, psych nurse, social work msw, cottrell operator, teacher, fire control officer, rn case management)? Give summary @ -no Was smoking cessation discussed for >3mins.? @ -no Was critical care preformed (if so, how long)? @ -no Were there social determinants of health that impacted care today? How? (Homelessness, low income, unemployed, alcoholism, drug addiction, trans portation, low edu. Level, literacy, decrease access to med. care, senior care, rehab)? @ -none Was there de-escalation of care discussed even if they declined (Discuss DNR or withdrawal of care, Hospice)? DNR status @ -no What co-morbidities impacted this encounter? (DM, HTN, Smoking, COPD, CAD, Cancer, CVA, ARF, Chemo, Hep., AIDS, mental health diagnosis, sleep apnea, morbid obesity)? @ -none Was patient admitted / discharged? Hospital course, mention meds given and route, prescriptions, significant lab abnormalities, going to OR and other pertinent info. @ - 39 female with symptomatic coronavirus. Patient has symptoms improved here in the ER feels well and can be discharged home Discharge Undiagnosed new problem with uncertain prognosis? @ -no Drug Therapy requiring intensive monitoring for toxicity (Heparin, Nitro, Insulin, Cardizem)? @ -no Were any procedures done? @ -no Diagnosis/symptom? @ -Coronavirus Acute, or Chronic, or Acute on Chronic? @ -Acute Uncomplicated (without systemic symptoms) or Complicated (systemic symptoms)? @ -Complicated Side effects of treatment? @ -no Exacerbation, Progression, or Severe Exacerbation? @ -exacerbation Poses a threat to life or bodily function? How? (Chest pain, [place], [place], pneumonia, PE, COPD, DKA, ARF, appy, cholecystitis, CVA, Diverticulitis, Homicidal, Suicidal, threat to staff... and all critical care pts) @ -yes with coronavirus Medical Decision Making - Medical Decision Making 39 female with symptomatic coronavirus. Patient has symptoms improved here in the ER feels well and can be discharged home - Radiology Data Radiology results: report reviewed (Chest x-ray is negative for acute disease), image reviewed Disposition Clinical Impression: Viral infection, COVID Disposition: HOME SELF-CARE Condition: Good Instructions (If sedation given, give patient instructions): COVID-19 (Coronavirus Disease 2019) (ED) Prescriptions: metroNIDAZOLE [Flagyl] 500 mg PO BID #14 tab Is patient prescribed a controlled substance at d/c from ED?: No Referrals: [facility] [Primary Care Provider] - 1-2 days
[2024-06-11] MEDS: dexAMETHasone 2 MG TAB PO STA (05:41)
[2024-06-11] MEDS: SODIUM CHLORIDE 0.9% 1,000 ML IV STA (05:41)
[2024-06-11] MEDS: ACETAMINOPHEN TAB 500 MG TAB PO STA (05:41)
[2024-06-11] MEDS: metroNIDAZOLE 500 MG TAB PO STA (05:41)
[2024-06-11] MEDS: KETOROLAC 15 MG/ML 1 ML VIAL IVP STA (05:42)
[2024-06-11] MEDS: KETOROLAC 15 MG/ML 1 ML VIAL IM STA (05:42)
[2024-06-11] MEDS: ONDANSETRON 4 MG/2 ML VIAL IVP STA (05:43)
--- NOTE | 2024-06-11 07:23 | XR ---
EXAMINATION TYPE: XR chest 2V DATE OF EXAM: 06/11/2024 4:16 AM CLINICAL INDICATION: Female, 39 years old with history of cough; [facility] COMPARISON: Chest radiographs from TECHNIQUE: XR chest 2V Frontal view of the chest. FINDINGS: Lungs/Pleura: There is no evidence of pleural effusion, focal consolidation, or pneumothorax. Pulmonary vascularity: Unremarkable. Heart/mediastinum: Cardiomediastinal silhouette is unremarkable. Musculoskeletal: No acute osseous pathology. Other findings: None Lines/Tubes: IMPRESSION: No acute cardiopulmonary disease/process.
== END 2024-06-11 06:59 | disposition home or self-care (01) ==
LOC: EC 03:11
CPT/HCPCS: 71046; 93005; 96361; 96374; 99284

== ENCOUNTER 2024-06-13 09:46 | Emergency (ER) | payer OTHER ==
--- NOTE | 2024-06-13 10:28 | ED ---
General Adult HPI - General Chief complaint: Shortness of Breath Stated complaint: SOB Time Seen by Provider: 06/13/24 10:27 Source: patient, RN notes reviewed Mode of arrival: ambulatory Limitations: no limitations - History of Present Illness Initial comments: 39-year-old female presented to ER with a chief complaint of shortness of breath. Patient states she tested positive for COVID-19 on 06-08-2024. Patient reports since then she has been having shortness of breath, abdominal pain, diarrhea, nausea and vomiting. She has not been able to keep any food or liquids down. Unknown fevers at home. She does report chills. She has been taking [id number] Tylenol without relief. Patient is a smoker. Denies any peripheral edema or urinary complaints or chest pain. - Related Data Home Medications Medication Instructions Recorded Confirmed Buprenorphine HCl/Naloxone HCl 1 tab SL BID 09/10/22 09/25/22 [Zubsolv 5.7-1.4 mg Tablet Sl] Aspirin [Adult Low Dose Aspirin EC] 81 mg PO DAILY 09/24/22 09/25/22 Cholecalciferol [Vitamin D3 (125 125 mcg PO DAILY 09/24/22 09/25/22 Mcg = 5000 Iu)] Isosorbide Mononitrate ER [Imdur] 15 mg PO DAILY 09/24/22 09/25/22 Metoprolol Tartrate 25 mg PO DAILY 09/24/22 09/25/22 Rosuvastatin [Crestor] 20 mg PO DAILY 09/24/22 09/25/22 Previous Rx's Medication Instructions Recorded lisinopriL [Prinivil] 5 mg PO BID #0 09/12/22 Prasugrel [Effient] 10 mg PO DAILY #90 tab 09/25/22 Prasugrel [Effient] 10 mg PO DAILY #90 tablet 09/25/22 Clindamycin [Cleocin] 150 mg PO Q8H 7 Days #63 capsule 06/21/23 Ibuprofen [Motrin] 800 mg PO Q8H PRN #30 tab 06/21/23 metroNIDAZOLE [Flagyl] 500 mg PO BID #14 tab 06/11/24 Allergies Allergy/AdvReac Type Severity Reaction Status Date / Time codeine Allergy Swelling , Verified 06/13/24 09:52 and generally did not feel well levofloxacin [From Levaquin] Allergy itching Verified 06/13/24 09:52 and did not feel well Penicillins Allergy Rash/Hives Verified 06/13/24 09:52 Sulfa (Sulfonamide Allergy Rash/Hives Verified 06/13/24 09:52 Antibiotics) and did not feel well sulfamethoxazole Allergy Itching Verified 06/13/24 09:52 [From Bactrim] trimethoprim [From Bactrim] Allergy Itching Verified 06/13/24 09:52 Review of Systems ROS Statement: Those systems with pertinent positive or pertinent negative responses have been documented in the HPI. ROS Other: All systems not noted in ROS Statement are negative. Past Medical History Past Medical History: Asthma, Chest Pain / Angina, GERD/Reflux, Hyperlipidemia, Hypertension, Osteoarthritis (OA) Additional Past Medical History / Comment(s): See Cardiology H&P. Hx polynephritis & kidney failure, frequest UTI's, anemia, irregular heart beat. History of Any Multi-Drug Resistant Organisms: None Reported Past Surgical History: Cardiac Ablation, Cholecystectomy, Heart Catheterization With Stent Additional Past Surgical History / Comment(s): Cyst removed from right forearm and back. Past Anesthesia/Blood Transfusion Reactions: No Reported Reaction, Motion Sickness Additional Past Anesthesia/Blood Transfusion Reaction / Comment(s): Hard time waking up. Mom had trouble waking up. Past Psychological History: ADD/ADHD, Anxiety, Depression Smoking Status: Current every day smoker Past Alcohol Use History: Rare Past Drug Use History: Marijuana - Past Family History Mother Family Medical History: No Reported History General Exam Limitations: no limitations General appearance: alert, in no apparent distress ENT exam: Present: normal exam, normal oropharynx, mucous membranes moist, TM's normal bilaterally Neck exam: Present: normal inspection. Absent: tenderness, meningismus, lymp hadenopathy Respiratory exam: Present: normal lung sounds bilaterally. Absent: respiratory distress, wheezes, rales, rhonchi, stridor Cardiovascular Exam: Present: regular rate, normal rhythm, normal heart sounds. Absent: systolic murmur, diastolic murmur, rubs, gallop, clicks GI/Abdominal exam: Present: soft, normal bowel sounds. Absent: distended, tenderness, guarding, rebound, rigid Extremities exam: Present: normal inspection, full ROM, normal capillary refill. Absent: tenderness, pedal edema, joint swelling, calf tenderness Skin exam: Present: warm, dry, intact, normal color. Absent: rash Course Vital Signs 06/13/24 06/13/24 06/13/24 09:49 10:57 11:00 Temperature 97.9 F 99.0 F Pulse Rate 81 76 Pulse Rate [ Pharmacy Director ] Respiratory 16 17 18 Rate Blood Pressure 120/78 134/80 O2 Sat by Pulse 98 99 Oximetry 06/13/24 06/13/24 11:45 12:44 Temperature Pulse Rate 72 Pulse Rate [ 77 Pharmacy Director ] Respiratory 16 Rate Blood Pressure 134/87 O2 Sat by Pulse 100 Oximetry Medical Decision Making - Medical Decision Making Was pt. sent in by a medical professional or institution (RADHA Parr, FELT HANGER, urgent care, hospital, or care home...) When possible be specific @ -No Did you speak to anyone other than the patient for history (EMS, parent, family, police, friend...)? What history was obtained from this source @ -No Did you review nursing and triage notes (agree or disagree)? Why? @ -I reviewed and agree with nursing and triage notes Were old charts reviewed (outside hosp., previous admission, EMS record, old EKG, old radiological studies, urgent care reports/EKG's, care home records)? Report findings @ -No old charts were reviewed Differential Diagnosis (chest pain, altered mental status, abdominal pain women, abdominal pain men, vaginal bleeding, weakness, fever, dyspnea, syncope, headache, dizziness, GI bleed, back pain, seizure, CVA, palpatations, mental health, musculoskeletal)? @ -COVID, RSV, influenza, viral sinusitis, pneumonia this list is not meant to be all-inclusive EKG interpreted by me (3pts min.). @ -None done X-rays interpreted by me (1pt min.). @ -Chest x-ray interpreted by me negative for acute cardiopulmonary process. CT interpreted by me (1pt min.). @ -None done U/S interpreted by me (1pt. min.). @ -None done What testing was considered but not performed or refused? (CT, X-rays, U/S, labs)? Why? @ -None What meds were considered but not given or refused? Why? @ -None Did you discuss the management of the patient with other professionals (professionals i.e. , RADHA, FELT HANGER, lab, RT, psych nurse, socially responsible investment adviser, kick press setter, teacher, disability insurance hearing officer, rehabilitation case coordinator)? Give summary @ -No Was smoking cessation discussed for >3mins.? @ -I discussed smoking cessation for greater than 3 minutes. The risk of smoking were discussed with the patient including but not limited to risks of cancer, stroke, coronary artery disease and COPD. Also discussed with patient were multiple methods of quitting smoking. Lastly we discussed the financial cost of smoking. Was critical care preformed (if so, how long)? @ -No Were there social determinants of health that impacted care today? How? (Homelessness, low income, unemployed, alcoholism, drug addiction, transportation, low edu. Level, literacy, decrease access to med. care, shelter, rehab)? @ -No Was there de-escalation of care discussed even if they declined (Discuss DNR or withdrawal of care, Hospice)? DNR status @ -No What co-morbidities impacted this encounter? (DM, HTN, Smoking, COPD, CAD, Cancer, CVA, ARF, Chemo, Hep., AIDS, mental health diagnosis, sleep apnea, m orbid obesity)? @ -None Was patient admitted / discharged? Hospital course, mention meds given and route, prescriptions, significant lab abnormalities, going to OR and other pertinent info. @ -Discharge. 39-year-old female presented to ER with a chief complaint of myalgias. Patient recently diagnosed with COVID-19. History and physical exam completed. Vitals upon examination stable. Patient in no signs of acute distress and resting comfortably in exam room. Exam unremarkable. Laboratory studies obtained unimpressive. Chest x-ray interpreted by me negative for acute cardiopulmonary process. Patient received IV fluids and Tylenol in the ER for symptom control. Upon reevaluation, patient resting comfortably in exam room in no signs of acute distress. Results discussed with patient, all questions answered. Patient does report improved symptoms after hydration. Patient is eager for discharge. Symptoms believed to be viral in nature due to coronavirus. Strict return parameters discussed. Patient discharged in stable condition with follow-up to PCP. Patient verbally expressed understanding of care plan. Case discussed with ED attending, Dr. Lazaro. Undiagnosed new problem with uncertain prognosis? @ -No Drug Therapy requiring intensive monitoring for toxicity (Heparin, Nitro, Insulin, Cardizem)? @ -No Were any procedures done? @ -No Diagnosis/symptom? @ -Viral illness/COVID-19/acute viral sinusitis Acute, or Chronic, or Acute on Chronic? @ -Acute Uncomplicated (without systemic symptoms) or Complicated (systemic symptoms)? @ -Uncomplicated Side effects of treatment? @ -No Exacerbation, Progression, or Severe Exacerbation? @ -No Poses a threat to life or bodily function? How? (Chest pain, [place], [place], pneumonia, PE, COPD, DKA, ARF, appy, cholecystitis, CVA, Diverticulitis, Homicidal, Suicidal, threat to staff... and all critical care pts) @ -No - Lab Data Result diagrams: 06/13/24 11:15 06/13/24 11:15 Lab Results 06/13/24 06/13/24 Range/Units 11:15 11:15 WBC 8.5 (3.8-10.6) k/uL RBC 3.96 (3.80-5.40) m/uL Hgb 10.4 L (11.4-16.0) gm/dL Hct 32.0 L (34.0-46.0) % MCV 80.9 (80.0-100.0) fL MCH 26.2 (25.0-35.0) pg MCHC 32.4 (31.0-37.0) g/dL RDW 14.9 (11.5-15.5) % Plt Count 377 (150-450) k/uL MPV 7.3 Neutrophils % 63 % Lymphocytes % 29 % Monocytes % 5 % Eosinophils % 2 % Basophils % 0 % Neutrophils # 5.3 (1.3-7.7) k/uL Lymphocytes # 2.4 (1.0-4.8) k/uL Monocytes # 0.4 (0-1.0) k/uL Eosinophils # 0.2 (0-0.7) k/uL Basophils # 0.0 (0-0.2) k/uL Hypochromasia Moderate Sodium 139 (137-145) mmol/L Potassium 3.8 (3.5-5.1) mmol/L Chloride 109 H (98-107) mmol/L Carbon Dioxide 27 (22-30) mmol/L Anion Gap 3 mmol/L BUN 9 (7-17) mg/dL Creatinine 0.75 (0.52-1.04) mg/dL Est GFR (CKD-EPI)AfAm >90 (>60 ml/min/1.73 sqM) Est GFR (CKD-EPI)NonAf >90 (>60 ml/min/1.73 sqM) Glucose 88 (74-99) mg/dL Calcium 8.9 (8.4-10.2) mg/dL Total Bilirubin 0.2 (0.2-1.3) mg/dL AST 14 (14-36) U/L ALT 11 (4-34) U/L Alkaline Phosphatase 41 (38-126) U/L Total Protein 5.6 L (6.3-8.2) g/dL Albumin 3.3 L (3.5-5.0) g/dL - Radiology Data Radiology results: report reviewed, image reviewed Disposition Clinical Impression: Acute viral sinusitis, COVID Disposition: HOME SELF-CARE Condition: Stable Instructions (If sedation given, give patient instructions): COVID-19 (Coronavirus Disease 2019) (ED) Is patient prescribed a controlled substance at d/c from ED?: No Referrals: [facility] [Primary Care Provider] - 1-2 days Time of Disposition: 14:39
[2024-06-13 11:01] VITALS: TEMP 99
[2024-06-13] MEDS: ACETAMINOPHEN TAB 500 MG TAB PO STA (11:15)
[2024-06-13] MEDS: SODIUM CHLORIDE 0.9% 1,000 ML IV STA (11:17)
[2024-06-13 11:43] LABS: Basophils % (A) 0 %; Eosinophils # (A) 0.2 k/uL (0-0.7); Eosinophils % (A) 2 %; HGB 10.4 gm/dL (11.4-16.0); Hypochromasia Moderate; Lymphocytes # (A) 2.4 k/uL (1.0-4.8); Lymphocytes % (A) 29 %; MCH 26.2 pg (25.0-35.0); MCHC 32.4 g/dL (31.0-37.0); MCV 80.9 fL (80.0-100.0); Mean Platelet Volume 7.3; Monocytes # (A) 0.4 k/uL (0-1.0); Monocytes % (A) 5 %; Neutrophils # (A) 5.3 k/uL (1.3-7.7); Neutrophils % (A) 63 %; Platelet Count 377 k/uL (150-450); RBC 3.96 m/uL (3.80-5.40); RDW 14.9 % (11.5-15.5); WBC 8.5 k/uL (3.8-10.6)
[2024-06-13 11:51] LABS: ALT 11 U/L (4-34); AST 14 U/L (14-36); African American GFR (CKD) >90 (>60 ml/min/1.73 sqM); Albumin 3.3 g/dL (3.5-5.0); Alkaline Phosphatase 41 U/L (38-126); Anion Gap 3 mmol/L; Blood Urea Nitrogen 9 mg/dL (7-17); Calcium 8.9 mg/dL (8.4-10.2); Carbon Dioxide 27 mmol/L (22-30); Chloride 109 mmol/L (98-107); Glucose 88 mg/dL (74-99); Non-African American GFR(CKD) >90 (>60 ml/min/1.73 sqM); Potassium 3.8 mmol/L (3.5-5.1); Sodium 139 mmol/L (137-145); Total Bilirubin 0.2 mg/dL (0.2-1.3); Total Protein 5.6 g/dL (6.3-8.2)
--- NOTE | 2024-06-13 12:09 | XR ---
EXAMINATION TYPE: XR chest 2V DATE OF EXAM: 06/13/2024 COMPARISON: 06/11/2024 HISTORY: 39-year-old female with cough TECHNIQUE: PA and lateral views FINDINGS: Heart normal size. Aorta and pulmonary vasculature within normal limits. No consolidation or pleural effusion. There is a metallic BB located at the left axilla, unchanged. IMPRESSION: No acute cardiopulmonary process. Incidental: Metal BB redemonstrated at the left axilla.
[2024-06-13 12:45] VITALS: BP 134/87; PULSE 72; RESP 16
== END 2024-06-13 12:45 | disposition home or self-care (01) ==
LOC: EC 09:46
DX: R06.02 Shortness of breath
CPT/HCPCS: 36415; 71046; 80053; 85025; 96360; 99284

== ENCOUNTER → 2024-07-04 | Outpatient (CLI) | payer OTHER ==
--- NOTE | 2024-07-04 12:06 | NM ---
EXAMINATION TYPE: NM stress cardiolite complete DATE OF EXAM: 07/04/2024 COMPARISON: NONE CLINICAL INDICATION: Female, 39 years old with history of I20.9 ANGINA PECTORIS, UNSPECIFIED I25.10 A THSCL H; TECHNIQUE: After the intravenous administration of 9.6 mCi Tc 99m Sestamibi - Rest images obtained 6 0 minutes post injection. The patient exercised using a SINGH protocol and 1 minute prior to peak e xercise was injected with 25.4 mCi Tc 99m Sestamibi - Stress images obtained 10 minutes post injectio n. FINDINGS: Targeted heart rate was achieved during performance of the study. Review of stress and rest SPECT roc ges demonstrates no distinct perfusion abnormality. Gated analysis shows normal wall motion with an estimated left ventricular ejection fraction of 60 %. IMPRESSION: No scintigraphic evidence for reversible ischemia [facility] Myke Larsen, , 07/04/2024 12:04 PM
--- NOTE | 2024-07-04 17:39 | CA ---
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 Medications: ROSUVASTATIN,,,, ZANTAC,,,, LISINOPRIL,,, Meds past 24 hrs: Pretest Chest Pain: STRESS TEST Dougals Protocol Exercise Duration (min:sec): 06:[address] Depressions (mm): Angina Score: [place] Score: Resting HR (bpm): 86 Peak HR (bpm): 169 Resting BP (mmHg): 138 / 91 Peak BP (mmHg): 172 / 89 MPHR: 179 Target HR: 152 % MPHR: 94 METS: 8.3 Total Dose: Peak Dose: Atropine: Double Product: 68444 BP Response: Stress Termination: TARGET HR REACHED/MAX EXERTION Stress Symptoms: CHEST PRESSURE Stress Summary: ECG ANALYSIS Resting ECG: Normal sinus rhythm normal axis normal intervals Stress ECG: Patient exercised on Douglas protocol for 6 minutes and 40 seconds achieving 85% of predicted maximal heart rate without chest pain or diagnostic ST segment depression CONCLUSIONS Average exercise tolerance Negative stress test by EKG criteria Dr. Gary Raphael MD (Electronically Signed) Final Date: 04 July 2024 17:38
== END | disposition home or self-care (01) ==
LOC: RADNMMAIN 08:58
PROVIDERS: ATTEND Internal Medicine Clinical Cardiac Electrophysiology
DX: I25.119 Atherosclerotic heart disease of native coronary artery with unspecified angina pectoris (principal); I10 Essential (primary) hypertension; E78.5 Hyperlipidemia, unspecified; Z82.49 Family history of ischemic heart disease and other diseases of the circulatory system; Z87.891 Personal history of nicotine dependence
CPT/HCPCS: 78452; 93017

== ENCOUNTER 2024-09-26 03:53 | Emergency (ER) | payer OTHER ==
--- NOTE | 2024-09-26 04:04 | ED ---
Syncope HPI - General Stated Complaint: COVID+, Headache, Nausea Time Seen by Provider: 09/26/24 03:58 Source: patient, RN notes reviewed, old records reviewed Mode of arrival: ambulatory Limitations: no limitations - History of Present Illness Initial Comments: This is a 39-year-old female to the ER for evaluation recent diagnosis of coronavirus virus, nausea vomiting weakness not feeling well -: days(s) Prodromal Symptoms: nausea/vomiting -: second(s) Witnessed: yes - by bystander Injuries Sustained Associated with Event: None Current Symptoms: none Context: other Treatments Prior to Arrival: none - Related Data Home Medications Medication Instructions Recorded Confirmed Aspirin [Adult Low Dose Aspirin EC] 81 mg PO DAILY 09/24/22 09/27/24 Metoprolol Succinate (ER) [Toprol 12.5 mg PO DAILY 09/27/24 09/27/24 XL] Omeprazole 20 mg PO DAILY 09/27/24 09/27/24 Rosuvastatin [Crestor] 10 mg PO DAILY 09/27/24 09/27/24 lisinopriL [Zestril] 5 mg PO BID 09/27/24 09/27/24 Previous Rx's Medication Instructions Recorded Ascorbic Acid [Vitamin C] 1,000 mg PO DAILY #60 tab 09/29/24 Nicotine 14Mg/24Hr Patch [Habitrol] 1 patch TRANSDERM DAILY #30 patch 09/29/24 Nitroglycerin Sl Tabs [Nitrostat] 0.4 mg SUBLINGUAL Q5M PRN #20 tab 09/29/24 Zinc Sulfate [Orazinc] 220 mg PO DAILY #15 cap 09/29/24 Allergies Allergy/AdvReac Type Severity Reaction Status Date / Time codeine Allergy Swelling , Verified 09/27/24 09:11 and generally did not feel well levofloxacin [From Levaquin] Allergy itching Verified 09/27/24 09:11 and did not feel well Penicillins Allergy Rash/Hives Verified 09/27/24 09:11 Sulfa (Sulfonamide Allergy Rash/Hives Verified 09/27/24 09:11 Antibiotics) and did not feel well sulfamethoxazole Allergy Itching Verified 09/27/24 09:11 [From Bactrim] trimethoprim [From Bactrim] Allergy Itching Verified 09/27/24 09:11 Review of Systems ROS Statement: Those systems with pertinent positive or pertinent negative responses have been documented in the HPI. ROS Other: All systems not noted in ROS Statement are negative. Past Medical History Past Medical History: Asthma, Chest Pain / Angina, GERD/Reflux, Hyperlipidemia, Hypertension, Osteoarthritis (OA) Additional Past Medical History / Comment(s): See Cardiology H&P. Hx polynep hritis & kidney failure, frequest UTI's, anemia, irregular heart beat. History of Any Multi-Drug Resistant Organisms: None Reported Past Surgical History: Cardiac Ablation, Cholecystectomy, Heart Catheterization With Stent Additional Past Surgical History / Comment(s): Cyst removed from right forearm and back. Past Anesthesia/Blood Transfusion Reactions: No Reported Reaction, Motion Sickness Additional Past Anesthesia/Blood Transfusion Reaction / Comment(s): Hard time wa mary up. Mom had trouble waking up. Past Psychological History: ADD/ADHD, Anxiety, Depression Smoking Status: Vaper Past Alcohol Use History: Rare Past Drug Use History: Marijuana - Past Family History Mother Family Medical History: No Reported History General Exam Limitations: no limitations General appearance: alert, in no apparent distress Head exam: Present: atraumatic, normocephalic, normal inspection Eye exam: Present: normal appearance, PERRL, EOMI. Absent: scleral icterus, conjunctival injection, periorbital swelling ENT exam: Present: normal exam, mucous membranes moist Neck exam: Present: normal inspection. Absent: tenderness, meningismus, lymphadenopathy Respiratory exam: Present: normal lung sounds bilaterally. Absent: respiratory distress, wheezes, rales, rhonchi, stridor Cardiovascular Exam: Present: regular rate, normal rhythm, normal heart sounds. Absent: systolic murmur, diastolic murmur, rubs, gallop, clicks GI/Abdominal exam: Present: soft, normal bowel sounds. Absent: distended, tenderness, guarding, rebound, rigid Extremities exam: Present: normal inspection, full ROM, normal capillary refill. Absent: tenderness, pedal edema, joint swelling, calf tenderness Back exam: Present: normal inspection Neurological exam: Present: alert, oriented X3, CN II-XII intact Psychiatric exam: Present: normal affect, normal mood Skin exam: Present: warm, dry, intact, normal color. Absent: rash Course Vital Signs 09/26/24 09/26/24 09/26/24 03:56 04:33 05:20 Temperature 98.6 F 98.2 F 97.6 F Pulse Rate 111 H 107 H 111 H Respiratory 22 18 18 Rate Blood Pressure 148/87 147/97 108/74 O2 Sat by Pulse 100 99 100 Oximetry 09/26/24 05:40 Temperature 97.9 F Pulse Rate 101 H Respiratory 18 Rate Blood Pressure 121/78 O2 Sat by Pulse 100 Oximetry - Reevaluation(s) Reevaluation #1: 09/26/24 04:22 Records reviewed Reevaluation #2: 09/26/24 04:22 Symptoms unchanged Reevaluation #3: 09/26/24 04:22 Informed of results and questions answered Reevaluation #4: Was pt. sent in by a medical professional or institution (, PA, SEO CONSULTANT, urgent care, hospital, or group home...) When possible be specific @ -no Did you speak to anyone other than the patient for history (EMS, parent, family, police, friend...)? What history was obtained from this source @ -no Did you review nursing and triage notes (agree or disagree)? Why? @ -agree Are old charts reviewed (outside hosp., previous admission, EMS record, old EKG, old radiological studies, urgent care reports/EKG's, group home records)? Report findings @ -yes Differential Diagnosis (chest pain, altered mental status, abdominal pain women, abdominal pain men, vaginal bleeding, weakness, fever, dyspnea, syncope, headache, dizziness, GI bleed, back pain, seizure, CVA, palpatations, mental health, musculoskeletal)? @ -prior EKG interpreted by me (3pts min.). @ -yes X-rays interpreted by me (1pt min.). @ -no CT interpreted by me (1pt min.). @ -no U/S interpreted by me (1pt. min.). @ -no What testing was considered but not performed or refused? (CT, X-rays, U/S, labs)? Why? @ -none What meds were considered but not given or refused? Why? @ -none Did you discuss the management of the patient with other professionals (professionals i.e. , RADHA, SEO CONSULTANT, lab, RT, psych nurse, social service assistant, adjunct trainer, teacher, aoc operations intelligence officer, case resource manager)? Give summary @ -no Was smoking cessation discussed for >3mins.? @ -no Was critical care preformed (if so, how long)? @ -no Were there social determinants of health that impacted care today? How? (Homelessness, low income, unemployed, alcoholism, drug addiction, transportation, low edu. Level, literacy, decrease access to med. care, care home, rehab)? @ -none Was there de-escalation of care discussed even if they declined (Discuss DNR or withdrawal of care, Hospice)? DNR status @ -no What co-morbidities impacted this encounter? (DM, HTN, Smoking, COPD, CAD, Cancer, CVA, ARF, Chemo, Hep., AIDS, mental health diagnosis, sleep apnea, morbid obesity)? @ -none Was patient admitted / discharged? Hospital course, mention meds given and route, prescriptions, significant lab abnormalities, going to OR and other pertinent info. @ - 39 female to ER for evaluation of not feeling well for a few days now body aches and pains positive for coronavirus. Patient given symptomatic therapy here in the ER and can be discharged home Discharge Undiagnosed new problem with uncertain prognosis? @ -no Drug Therapy requiring intensive monitoring for toxicity (Heparin, Nitro, Insulin, Cardizem)? @ -no Were any procedures done? @ -no Diagnosis/symptom? @ -Viral syndrome coronavirus infection Acute, or Chronic, or Acute on Chronic? @ -Acute Uncomplicated (without systemic symptoms) or Complicated (systemic symptoms)? @ -Complicated Side effects of treatment? @ -no Exacerbation, Progression, or Severe Exacerbation? @ -exacerbation Poses a threat to life or bodily function? How? (Chest pain, USA, NV, pneumonia, PE, COPD, DKA, ARF, appy, cholecystitis, CVA, Diverticulitis, Homicidal, Suicidal, threat to staff... and all critical care pts) @ -no Reevaluation #5: Differential Syncope: Valvular disease, hypertrophic cardiomyopathy, pulmonary embolism, tamponade, tachycardia, bradycardia, NV, hypovolemia, hemorrhage, dissection, anemia, intracranial hemorrhage, seizure, hypoglycemia, carbon monoxide poisoning, this is not meant to be an all-inclusive list. EKG Findings - EKG Comments: EKG Findings:: EKG is sinus tachycardia 110 ND 160 QRS 96 QTc 410 - EKG Results: EKG: interpreted by ERMD Medical Decision Making - Medical Decision Making 39 female to ER for evaluation of not feeling well for a few days now body aches and pains positive for coronavirus. Patient given symptomatic therapy here in the ER and can be discharged home - Lab Data Result diagrams: 09/26/24 04:30 09/26/24 04:30 Lab Results 09/26/24 09/26/24 09/26/24 Range/Units 04:17 04:30 04:30 WBC 8.0 (3.8-10.6) k/uL RBC 4.44 (3.80-5.40) m/uL Hgb 11.2 L (11.4-16.0) gm/dL Hct 34.5 (34.0-46.0) % MCV 77.8 L (80.0-100.0) fL MCH 25.3 (25.0-35.0) pg MCHC 32.5 (31.0-37.0) g/dL RDW 16.0 H (11.5-15.5) % Plt Count 370 (150-450) k/uL MPV 7.5 Neutrophils % 57 % Lymphocytes % 31 % Monocytes % 4 % Eosinophils % 6 % Basophils % 1 % Neutrophils # 4.6 (1.3-7.7) k/uL Lymphocytes # 2.4 (1.0-4.8) k/uL Monocytes # 0.3 (0-1.0) k/uL Eosinophils # 0.5 (0-0.7) k/uL Basophils # 0.0 (0-0.2) k/uL Hypochromasia Slight Anisocytosis Slight Microcytosis Slight Sodium 138 (137-145) mmol/L Potassium 3.5 (3.5-5.1) mmol/L Chloride 109 H (98-107) mmol/L Carbon Dioxide 22 (22-30) mmol/L Anion Gap 7 mmol/L BUN 17 (7-17) mg/dL Creatinine 0.67 (0.52-1.04) mg/dL Est GFR (CKD-EPI)AfAm >90 (>60 ml/min/1.73 sqM) Est GFR (CKD-EPI)NonAf >90 (>60 ml/min/1.73 sqM) Glucose 122 H (74-99) mg/dL Plasma Lactic Acid Gumaro (0.7-2.0) mmol/L Calcium 9.3 (8.4-10.2) mg/dL Phosphorus 4.1 (2.5-4.5) mg/dL Magnesium 2.0 (1.6-2.3) mg/dL Total Bilirubin 0.5 (0.2-1.3) mg/dL AST 23 (14-36) U/L ALT 16 (4-34) U/L Alkaline Phosphatase 72 (38-126) U/L Troponin I (0.000-0.034) ng/mL Total Protein 7.3 (6.3-8.2) g/dL Albumin 4.5 (3.5-5.0) g/dL Influenza Type A (PCR) Not Detected (Not Detectd) Influenza Type B (PCR) Not Detected (Not Detectd) RSV (PCR) Not Detected (Not Detectd) SARS-CoV-2 (PCR) Not Detected (Not Detectd) 09/26/24 09/26/24 Range/Units 04:30 04:30 WBC (3.8-10.6) k/uL RBC (3.80-5.40) m/uL Hgb (11.4-16.0) gm/dL Hct (34.0-46.0) % MCV (80.0-100.0) fL MCH (25.0-35.0) pg MCHC (31.0-37.0) g/dL RDW (11.5-15.5) % Plt Count (150-450) k/uL MPV Neutrophils % % Lymphocytes % % Monocytes % % Eosinophils % % Basophils % % Neutrophils # (1.3-7.7) k/uL Lymphocytes # (1.0-4.8) k/uL Monocytes # (0-1.0) k/uL Eosinophils # (0-0.7) k/uL Basophils # (0-0.2) k/uL Hypochromasia Anisocytosis Microcytosis Sodium (137-145) mmol/L Potassium (3.5-5.1) mmol/L Chloride (98-107) mmol/L Carbon Dioxide (22-30) mmol/L Anion Gap mmol/L BUN (7-17) mg/dL Creatinine (0.52-1.04) mg/dL Est GFR (CKD-EPI)AfAm (>60 ml/min/1.73 sqM) Est GFR (CKD-EPI)NonAf (>60 ml/min/1.73 sqM) Glucose (74-99) mg/dL Plasma Lactic Acid Gumaro 0.7 (0.7-2.0) mmol/L Calcium (8.4-10.2) mg/dL Phosphorus (2.5-4.5) mg/dL Magnesium (1.6-2.3) mg/dL Total Bilirubin (0.2-1.3) mg/dL AST (14-36) U/L ALT (4-34) U/L Alkaline Phosphatase (38-126) U/L Troponin I <0.012 (0.000-0.034) ng/mL Total Protein (6.3-8.2) g/dL Albumin (3.5-5.0) g/dL Influenza Type A (PCR) (Not Detectd) Influenza Type B (PCR) (Not Detectd) RSV (PCR) (Not Detectd) SARS-CoV-2 (PCR) (Not Detectd) - EKG Data -: EKG Interpreted by Me Disposition Clinical Impression: Coronavirus infection Disposition: HOME SELF-CARE Condition: Good Instructions (If sedation given, give patient instructions): Upper Respiratory Infection (ED) Is patient prescribed a controlled substance at d/c from ED?: No Referrals: None,Stated [Primary Care Provider] - 1-2 days Time of Disposition: 05:00
[2024-09-26 04:35] VITALS: RESP 18
[2024-09-26] MEDS: SODIUM CHLORIDE 0.9% 1,000 ML IV STA ×2 (04:39→05:04)
[2024-09-26 04:41] LABS: Anisocytosis Slight; Basophils % (A) 1 %; Eosinophils # (A) 0.5 k/uL (0-0.7); Eosinophils % (A) 6 %; HCT 34.5 % (34.0-46.0); HGB 11.2 gm/dL (11.4-16.0); Hypochromasia Slight; Lymphocytes # (A) 2.4 k/uL (1.0-4.8); Lymphocytes % (A) 31 %; MCH 25.3 pg (25.0-35.0); MCHC 32.5 g/dL (31.0-37.0); MCV 77.8 fL (80.0-100.0); Mean Platelet Volume 7.5; Microcytosis Slight; Monocytes # (A) 0.3 k/uL (0-1.0); Monocytes % (A) 4 %; Neutrophils # (A) 4.6 k/uL (1.3-7.7); Neutrophils % (A) 57 %; Platelet Count 370 k/uL (150-450); RBC 4.44 m/uL (3.80-5.40)
[2024-09-26] MEDS: KETOROLAC 15 MG/ML 1 ML VIAL IVP STA (04:42)
[2024-09-26] MEDS: ONDANSETRON 4 MG/2 ML VIAL IVP STA (04:46)
[2024-09-26] MEDS: DEXAMETHASONE SOD PHOSPHATE 10 MG/ML 1 ML VIAL IVP STA (04:51)
[2024-09-26 04:58] LABS: ALT 16 U/L (4-34); AST 23 U/L (14-36); African American GFR (CKD) >90 (>60 ml/min/1.73 sqM); Albumin 4.5 g/dL (3.5-5.0); Alkaline Phosphatase 72 U/L (38-126); Anion Gap 7 mmol/L; Blood Urea Nitrogen 17 mg/dL (7-17); Calcium 9.3 mg/dL (8.4-10.2); Carbon Dioxide 22 mmol/L (22-30); Chloride 109 mmol/L (98-107); Glucose 122 mg/dL (74-99); Non-African American GFR(CKD) >90 (>60 ml/min/1.73 sqM); Phosphorus 4.1 mg/dL (2.5-4.5); Potassium 3.5 mmol/L (3.5-5.1); Sodium 138 mmol/L (137-145); Total Bilirubin 0.5 mg/dL (0.2-1.3); Total Protein 7.3 g/dL (6.3-8.2)
[2024-09-26] MEDS: SODIUM CHLORIDE 0.9% 500 ML 500 ML IV STA (05:00)
[2024-09-26] MEDS: HYDROmorphone 0.5 MG/0.5 ML SYRINGE IVP STA (05:29)
[2024-09-26] MEDS: IBUPROFEN 600 MG STARTER PACK 4 TAB BTL PO STA (05:34)
[2024-09-26] MEDS: ONDANSETRON 4 MG ODT STARTER PACK 2 TAB BTL PO STA (05:36)
[2024-09-26] MEDS: traMADol 50 MG STARTER PACK 3 TAB BTL PO STA (05:37)
[2024-09-26 05:49] VITALS: BP 121/78; PULSE 101; TEMP 97.9
== END 2024-09-26 05:49 | disposition home or self-care (01) ==
LOC: EC 03:53
DX: U07.1 COVID-19 (principal); F17.290 Nicotine dependence, other tobacco product, uncomplicated; Z88.0 Allergy status to penicillin; Z88.1 Allergy status to other antibiotic agents; Z88.2 Allergy status to sulfonamides
CPT/HCPCS: 36415; 93005; 80053; 83605; 83735; 84100; 84484; 85025; 87636; 99284; 96374; 96375; J1100; J2405; J1885; S0119; J1171

== ENCOUNTER 2024-09-26 22:45 | Observation (INO) | payer OTHER ==
--- NOTE | 2024-09-26 23:15 | ED ---
General Adult HPI - General Chief complaint: Chest Pain Stated complaint: Chest Pain Time Seen by Provider: 09/26/24 22:55 Source: patient Mode of arrival: ambulatory Limitations: no limitations - History of Present Illness Initial comments: Dictation was produced using e[employer]obb dictation software. please excuse any grammatical, word or spelling errors. Chief Complaint: 39-year-old female presents with chest pain History of Present Illness: Patient is 39-year-old female she has past medical history of coronary artery disease and stent. She also has history of cardiac ablation. States that she has extensive family history of acute coronary syndro me. States that today she had some chest pressure that radiated down both arms. She was diagnosed with COVID yesterday after being symptomatic for 2 days. States that she has total body aches. The ROS documented in this emergency department record has been reviewed and confirmed by me. Those systems with pertinent positive or negative responses have been documented in the HPI. All other systems are other negative and/or noncontributory. - Related Data Home Medications Medication Instructions Recorded Confirmed Buprenorphine HCl/Naloxone HCl 1 tab SL BID 09/10/22 09/25/22 [Zubsolv 5.7-1.4 mg Tablet Sl] Aspirin [Adult Low Dose Aspirin EC] 81 mg PO DAILY 09/24/22 09/25/22 Cholecalciferol [Vitamin D3 (125 125 mcg PO DAILY 09/24/22 09/25/22 Mcg = 5000 Iu)] Isosorbide Mononitrate ER [Imdur] 15 mg PO DAILY 09/24/22 09/25/22 Metoprolol Tartrate 25 mg PO DAILY 09/24/22 09/25/22 Rosuvastatin [Crestor] 20 mg PO DAILY 09/24/22 09/25/22 Previous Rx's Medication Instructions Recorded lisinopriL [Prinivil] 5 mg PO BID #0 09/12/22 Prasugrel [Effient] 10 mg PO DAILY #90 tab 09/25/22 Prasugrel [Effient] 10 mg PO DAILY #90 tablet 09/25/22 Clindamycin [Cleocin] 150 mg PO Q8H 7 Days #63 capsule 06/21/23 Ibuprofen [Motrin] 800 mg PO Q8H PRN #30 tab 06/21/23 metroNIDAZOLE [Flagyl] 500 mg PO BID #14 tab 06/11/24 Allergies Allergy/AdvReac Type Severity Reaction Status Date / Time codeine Allergy Swelling , Verified 09/26/24 22:49 and generally did not feel well levofloxacin [From Levaquin] Allergy itching Verified 09/26/24 22:49 and did not feel well Penicillins Allergy Rash/Hives Verified 09/26/24 22:49 Sulfa (Sulfonamide Allergy Rash/Hives Verified 09/26/24 22:49 Antibiotics) and did not feel well sulfamethoxazole Allergy Itching Verified 09/26/24 22:49 [From Bactrim] trimethoprim [From Bactrim] Allergy Itching Verified 09/26/24 22:49 Review of Systems ROS Statement: Those systems with pertinent positive or pertinent negative responses have been documented in the HPI. ROS Other: All systems not noted in ROS Statement are negative. Past Medical History Past Medical History: Asthma, Chest Pain / Angina, GERD/Reflux, Hyperlipidemia, Hypertension, Osteoarthritis (OA) Additional Past Medical History / Comment(s): See Cardiology H&P. Hx polynephritis & kidney failure, frequest UTI's, anemia, irregular heart beat. History of Any Multi-Drug Resistant Organisms: None Reported Past Surgical History: Cardiac Ablation, Cholecystectomy, Heart Catheterization With Stent Additional Past Surgical History / Comment(s): Cyst removed from right forearm and back. Past Anesthesia/Blood Transfusion Reactions: No Reported Reaction, Motion Sickness Additional Past Anesthesia/Blood Transfusion Reaction / Comment(s): Hard time waking up. Mom had trouble waking up. Past Psychological History: ADD/ADHD, Anxiety, Depression Smoking Status: Vaper Past Alcohol Use History: Rare Past Drug Use History: Marijuana - Past Family History Mother Family Medical History: No Reported History General Exam - General Exam Comments Initial Comments: PHYSICAL EXAM: General Impression: Alert and oriented x3, not in acute distress HEENT: Normocephalic atraumatic, extra-ocular movements intact, pupils equal and reactive to light bilaterally, mucous membranes moist. Cardiovascular: Heart regular rate and rhythm Chest: Able to complete full sentences, no retractions, no tachypnea Abdomen: abdomen soft, non-tender, non-distended, no organomegaly Musculoskeletal: Pulses present and equal in all extremities, no peripheral edema Motor: no focal deficits noted Neurological: CN II-XII grossly intact, no focal motor or sensory deficits noted Skin: Intact with no visualized rashes Psych: Normal affect and mood Limitations: no limitations Course Vital Signs 09/26/24 09/26/24 09/27/24 22:49 23:54 00:50 Temperature 97.7 F 98.5 F Pulse Rate 130 H 116 H 117 H Respiratory 20 18 18 Rate Blood Pressure 165/98 151/106 163/107 O2 Sat by Pulse 100 100 100 Oximetry EKG Findings - EKG Comments: EKG Findings:: My EKG interpretation: Ventricular rate 116, sinus tachycardia,. 151, cures 97, QTc 393. No DE prolongation, no QTC prolongation, no ST or T-wave changes noted. Overall, this EKG is unremarkable Medical Decision Making - Medical Decision Making Was pt. sent in by a medical professional or institution (, PA, DENTAL APPLIANCE MECHANIC, urgent care, hospital, or senior care...) When possible be specific @ -No Did you speak to anyone other than the patient for history (EMS, parent, family, police, friend...)? What history was obtained from this source @ -No Did you review nursing and triage notes (agree or disagree)? Why? @ -I reviewed and agree with nursing and triage notes Were old charts reviewed (outside hosp., previous admission, EMS record, old EKG, old radiological studies, urgent care reports/EKG's, senior care records)? Report findings @ -No old charts were reviewed Differential Diagnosis (chest pain, altered mental status, abdominal pain women, abdominal pain men, vaginal bleeding, musculoskeletal, weakness, fever, dyspnea, syncope, headache, dizziness, GI bleed, back pain, seizure, CVA, palpatations, mental health)? @ -Acute coronary syndrome, pulmonary embolism, pneumothorax EKG interpreted by me (3pts min.). @ -See above X-rays interpreted by me (1pt min.). @ -Chest x-ray is nonacute CT interpreted by me (1pt min.). @ -None done U/S interpreted by me (1pt. min.). @ -None done What testing was considered but not performed or refused? (CT, X-rays, U/S, labs)? Why? @ -None What meds were considered but not given or refused? Why? @ -None Was smoking cessation discussed for >3mins.? @ -No Were there social determinants of health that impacted care today? How? (Homelessness, low income, unemployed, alcoholism, drug addiction, transpor tation, low edu. Level, literacy, decrease access to med. care, residential, rehab)? @ -No Was there de-escalation of care discussed even if they declined (Discuss DNR or withdrawal of care, Hospice)? DNR status @ -No What co-morbidities impacted this encounter? (DM, HTN, Smoking, COPD, CAD, Cancer, CVA, ARF, Chemo, Hep., AIDS, mental health diagnosis, sleep apnea, morbid obesity)? @ -Coronary artery disease, family history of ACS Was patient admitted / discharged? Hospital course, mention meds given and route, prescriptions, significant lab abnormalities, going to OR and other pertinent info. @ -39-year-old female presents to the emergency department atypical chest pain typical features. Vital signs upon arrival shows tachycardia 130. Repeat vital signs show persistent tachycardia. Laboratory evaluation obtained. CBC, metabolic panel is within acceptable limits. Abdominal labs are negative. D- dimer is negative. Chest x-ray is nonacute. Patient's symptomatology concerning for acute coronary syndrome. Patient been aspirin will be admitted for observation admission Did you discuss the management of the patient with other professionals (professionals i.e. , PA, DENTAL APPLIANCE MECHANIC, lab, RT, psych nurse, social welfare administrator, veterinary inspector, teacher, science and operations officer, mental health case manager)? Give summary @ -No Was critical care preformed (if so, how long)? @ -No Undiagnosed new problem with uncertain prognosis? @ -No Drug Therapy requiring intensive monitoring for toxicity (Heparin, Nitro, Insulin, Cardizem)? @ -No Were any procedures done? @ -No Diagnosis/symptom? Acute, or Chronic, or Acute on Chronic? Uncomplicated (without systemic symptoms) or Complicated (systemic symptoms)? @ -Chest pain Side effects of treatment? @ -No Exacerbation, Progression, or Severe Exacerbation? @ -No Poses a threat to life or bodily function? How? (Chest pain, USA, [place], pneumonia, PE, COPD, DKA, ARF, appy, cholecystitis, CVA, Diverticulitis, Homicidal, Suicidal, threat to staff... and all critical care pts) @ -yes - Lab Data Result diagrams: 09/26/24 23:52 09/26/24 23:52 Lab Results 09/26/24 09/26/24 09/26/24 Range/Units 23:52 23:52 23:52 WBC 13.8 H (3.8-10.6) k/uL RBC 4.62 (3.80-5.40) m/uL Hgb 12.0 (11.4-16.0) gm/dL Hct 36.6 (34.0-46.0) % MCV 79.2 L (80.0-100.0) fL MCH 25.8 (25.0-35.0) pg MCHC 32.6 (31.0-37.0) g/dL RDW 16.1 H (11.5-15.5) % Plt Count 423 (150-450) k/uL MPV 7.4 Neutrophils % 84 % Lymphocytes % 10 % Monocytes % 5 % Eosinophils % 0 % Basophils % 0 % Neutrophils # 11.6 H (1.3-7.7) k/uL Lymphocytes # 1.4 (1.0-4.8) k/uL Monocytes # 0.6 (0-1.0) k/uL Eosinophils # 0.0 (0-0.7) k/uL Basophils # 0.0 (0-0.2) k/uL Hypochromasia Slight Anisocytosis Slight PT 11.0 (10.0-12.5) sec INR 1.0 (<1.2) APTT 25.2 (22.0-30.0) sec D-Dimer 0.31 (<0.60) mg/L FEU Sodium 137 (137-145) mmol/L Potassium 4.1 (3.5-5.1) mmol/L Chloride 110 H (98-107) mmol/L Carbon Dioxide 22 (22-30) mmol/L Anion Gap 5 mmol/L BUN 15 (7-17) mg/dL Creatinine 0.60 (0.52-1.04) mg/dL Est GFR (CKD-EPI)AfAm >90 (>60 ml/min/1.73 sqM) Est GFR (CKD-EPI)NonAf >90 (>60 ml/min/1.73 sqM) Glucose 120 H (74-99) mg/dL Calcium 9.8 (8.4-10.2) mg/dL Magnesium 2.2 (1.6-2.3) mg/dL Total Bilirubin 0.5 (0.2-1.3) mg/dL AST 24 (14-36) U/L ALT 18 (4-34) U/L Alkaline Phosphatase 79 (38-126) U/L Troponin I (0.000-0.034) ng/mL Total Protein 8.0 (6.3-8.2) g/dL Albumin 4.9 (3.5-5.0) g/dL 09/26/24 Range/Units 23:52 WBC (3.8-10.6) k/uL RBC (3.80-5.40) m/uL Hgb (11.4-16.0) gm/dL Hct (34.0-46.0) % MCV (80.0-100.0) fL MCH (25.0-35.0) pg MCHC (31.0-37.0) g/dL RDW (11.5-15.5) % Plt Count (150-450) k/uL MPV Neutrophils % % Lymphocytes % % Monocytes % % Eosinophils % % Basophils % % Neutrophils # (1.3-7.7) k/uL Lymphocytes # (1.0-4.8) k/uL Monocytes # (0-1.0) k/uL Eosinophils # (0-0.7) k/uL Basophils # (0-0.2) k/uL Hypochromasia Anisocytosis PT (10.0-12.5) sec INR (<1.2) APTT (22.0-30.0) sec D-Dimer (<0.60) mg/L FEU Sodium (137-145) mmol/L Potassium (3.5-5.1) mmol/L Chloride (98-107) mmol/L Carbon Dioxide (22-30) mmol/L Anion Gap mmol/L BUN (7-17) mg/dL Creatinine (0.52-1.04) mg/dL Est GFR (CKD-EPI)AfAm (>60 ml/min/1.73 sqM) Est GFR (CKD-EPI)NonAf (>60 ml/min/1.73 sqM) Glucose (74-99) mg/dL Calcium (8.4-10.2) mg/dL Magnesium (1.6-2.3) mg/dL Total Bilirubin (0.2-1.3) mg/dL AST (14-36) U/L ALT (4-34) U/L Alkaline Phosphatase (38-126) U/L Troponin I <0.012 (0.000-0.034) ng/mL Total Protein (6.3-8.2) g/dL Albumin (3.5-5.0) g/dL Disposition Clinical Impression: Chest pain Disposition: ADMITTED IP TO THIS [facility] Condition: Fair Referrals: Nonstaff,Physician [Primary Care Provider] - 1-2 days Decision Time: 00:31
[2024-09-27 00:13] LABS: Anisocytosis Slight; Basophils % (A) 0 %; Eosinophils % (A) 0 %; HCT 36.6 % (34.0-46.0); Hypochromasia Slight; Lymphocytes # (A) 1.4 k/uL (1.0-4.8); Lymphocytes % (A) 10 %; MCH 25.8 pg (25.0-35.0); MCHC 32.6 g/dL (31.0-37.0); MCV 79.2 fL (80.0-100.0); Mean Platelet Volume 7.4; Monocytes # (A) 0.6 k/uL (0-1.0); Monocytes % (A) 5 %; Neutrophils # (A) 11.6 k/uL (1.3-7.7); Neutrophils % (A) 84 %; Platelet Count 423 k/uL (150-450); RBC 4.62 m/uL (3.80-5.40); RDW 16.1 % (11.5-15.5); WBC 13.8 k/uL (3.8-10.6)
[2024-09-27 00:25] LABS: ALT 18 U/L (4-34); AST 24 U/L (14-36); African American GFR (CKD) >90 (>60 ml/min/1.73 sqM); Albumin 4.9 g/dL (3.5-5.0); Alkaline Phosphatase 79 U/L (38-126); Anion Gap 5 mmol/L; Blood Urea Nitrogen 15 mg/dL (7-17); Calcium 9.8 mg/dL (8.4-10.2); Carbon Dioxide 22 mmol/L (22-30); Chloride 110 mmol/L (98-107); Glucose 120 mg/dL (74-99); Magnesium 2.2 mg/dL (1.6-2.3); Non-African American GFR(CKD) >90 (>60 ml/min/1.73 sqM); Potassium 4.1 mmol/L (3.5-5.1); Sodium 137 mmol/L (137-145); Total Bilirubin 0.5 mg/dL (0.2-1.3)
[2024-09-27] MEDS: ASPIRIN 81 MG PO STA (00:46)
[2024-09-27] MEDS: MORPHINE SULFATE 4 MG/ML SYRINGE IV STA (00:47)
[2024-09-27 01:02] LABS: Partial Thromboplastin Time 25.2 sec (22.0-30.0)
[2024-09-27] MEDS ORDERED: NITROGLYCERIN SL TABS 0.4 MG TAB SUBLINGUAL PRN (01:34)
--- NOTE | 2024-09-27 03:26 | XR ---
EXAM: XR Chest, 2 Views CLINICAL HISTORY: ITS.REASON XR Reason: Chest Pain TECHNIQUE: Frontal and lateral views of the chest. COMPARISON: No relevant prior studies available. FINDINGS: Lungs: No consolidation or mass. Pleural space: No effusion. Heart: No cardiomegaly. Bones/joints: No acute findings. IMPRESSION: No acute cardiopulmonary process.
[2024-09-27] MEDS: HYDROmorphone 0.5 MG/0.5 ML SYRINGE IVP PRN (13:38)
[2024-09-27] MEDS ORDERED: ALPRAZolam 0.25 MG TAB PO PRN (13:52)
--- NOTE | 2024-09-27 14:27 | P.CRDCN ---
History of Present Illness History of present illness: This is a 39-year-old female who presented to the emergency room complaining of chest pressure that radiated down both arms She was diagnosed with COVID yesterday being symptomatic for 2 days She complains of bodyaches Twelve-lead EKG shows sinus tachycardia normal ST segments Chest x-ray within normal limits Labs are reviewed and show an elevated white count and elevated neutrophil count Hemoglobin 12 Electrolytes normal3 normal cardiac enzymes On examination sinus tachycardia afebrile Blood pressure 128/82 mmHg normal respirations Impression Known CAD status post coronary stenting. This is her past history Diagnosed with COVID yesterday, symptoms for 2 days. This is her present history Normal cardiac enzymes Normal twelve-lead EKG sinus tachycardia and mildly elevated white count Plan This patient has COVID infection with severe chest pain all across the chest yesterday with normal EKG and normal cardiac enzymes There is no evidence for acute myocardial injury Her chest x-ray did not show any evidence for any pneumonia She is not hypoxic Treatment of COVID viral infection is what she needs along with continuation of her cardiac medications Medical reason for her admission is unclear to me Past Medical History Past Medical History: Asthma, Chest Pain / Angina, GERD/Reflux, Hyperlipidemia, Hypertension, Osteoarthritis (OA) Additional Past Medical History / Comment(s): See Cardiology H&P. Hx polynephritis & kidney failure, frequest UTI's, anemia, irregular heart beat. History of Any Multi-Drug Resistant Organisms: None Reported Past Surgical History: Cardiac Ablation, Cholecystectomy, Heart Catheterization With Stent Additional Past Surgical History / Comment(s): Cyst removed from right forearm and back. Past Anesthesia/Blood Transfusion Reactions: No Reported Reaction, Motion Sickness Additional Past Anesthesia/Blood Transfusion Reaction / Comment(s): Hard time waking up. Mom had trouble waking up. Past Psychological History: ADD/ADHD, Anxiety, Depression Smoking Status: Vaper Past Alcohol Use History: Rare Past Drug Use History: Marijuana - Past Family History Mother Family Medical History: No Reported History Medications and Allergies Home Medications Medication Instructions Recorded Confirmed Type Aspirin [Adult Low Dose Aspirin EC] 81 mg PO DAILY 09/24/22 09/27/24 History Metoprolol Succinate (ER) [Toprol 12.5 mg PO DAILY 09/27/24 09/27/24 History Xl] Omeprazole 20 mg PO DAILY 09/27/24 09/27/24 History Rosuvastatin [Crestor] 10 mg PO DAILY 09/27/24 09/27/24 History lisinopriL [Zestril] 5 mg PO BID 09/27/24 09/27/24 History Allergies Allergy/AdvReac Type Severity Reaction Status Date / Time codeine Allergy Swelling , Verified 09/27/24 09:11 and generally did not feel well levofloxacin [From Levaquin] Allergy itching Verified 09/27/24 09:11 and did not feel well Penicillins Allergy Rash/Hives Verified 09/27/24 09:11 Sulfa (Sulfonamide Allergy Rash/Hives Verified 09/27/24 09:11 Antibiotics) and did not feel well sulfamethoxazole Allergy Itching Verified 09/27/24 09:11 [From Bactrim] trimethoprim [From Bactrim] Allergy Itching Verified 09/27/24 09:11 Physical Exam Vitals: Vital Signs Temp Pulse Resp BP Pulse Ox 09/27/24 11:01 99.3 F 99 16 107/62 98 09/27/24 08:58 76 18 111/72 100 09/27/24 02:18 106 H 18 128/82 98 09/27/24 00:50 98.5 F 117 H 18 163/107 100 09/26/24 23:54 116 H 18 151/106 100 09/26/24 22:49 97.7 F 130 H 20 165/98 100 Intake and Output 09/26/24 09/27/24 09/27/24 22:59 06:59 14:59 Other: Weight 74.843 kg Results 09/26/24 23:52 09/26/24 23:52 Cardiac Enzymes 09/26/24 09/26/24 09/27/24 Range/Units 23:52 23:52 03:13 AST 24 (14-36) U/L Troponin I <0.012 <0.012 (0.000-0.034) ng/mL 09/27/24 Range/Units 07:03 AST (14-36) U/L Troponin I <0.012 (0.000-0.034) ng/mL Coagulation 09/26/24 Range/Units 23:52 PT 11.0 (10.0-12.5) sec APTT 25.2 (22.0-30.0) sec CBC 09/26/24 Range/Units 23:52 WBC 13.8 H (3.8-10.6) k/uL RBC 4.62 (3.80-5.40) m/uL Hgb 12.0 (11.4-16.0) gm/dL Hct 36.6 (34.0-46.0) % Plt Count 423 (150-450) k/uL Comprehensive Metabolic Panel 09/26/24 Range/Units 23:52 Sodium 137 (137-145) mmol/L Potassium 4.1 (3.5-5.1) mmol/L Chloride 110 H (98-107) mmol/L Carbon Dioxide 22 (22-30) mmol/L BUN 15 (7-17) mg/dL Creatinine 0.60 (0.52-1.04) mg/dL Glucose 120 H (74-99) mg/dL Calcium 9.8 (8.4-10.2) mg/dL AST 24 (14-36) U/L ALT 18 (4-34) U/L Alkaline Phosphatase 79 (38-126) U/L Total Protein 8.0 (6.3-8.2) g/dL Albumin 4.9 (3.5-5.0) g/dL Current Medications Generic Name Dose Route Start Last Admin Trade Name Freq PRN Reason Stop Dose Admin Aspirin 325 mg 09/28/24 09:00 Aspirin 325 Mg Tab PO DAILY WALLACE Nitroglycerin 0.4 mg 09/27/24 01:34 Nitroglycerin Sl Tabs 0.4 Mg Tab SUBLINGUAL Q5M PRN Chest Pain Intake and Output 09/26/24 09/27/24 09/27/24 22:59 06:59 14:59 Other: Weight 74.843 kg 09/26/24 23:52 09/26/24 23:52
[2024-09-27] MEDS: ASPIRIN 81 MG PO SCH (14:53)
[2024-09-27] MEDS: PANTOPRAZOLE 40 MG TABLET PO SCH (14:53)
[2024-09-27] MEDS: NICOTINE 14MG/24HR PATCH TRANSDERM SCH (14:53)
[2024-09-27] MEDS: SODIUM CHLORIDE 0.9% 1,000 ML IV ONE (15:25)
[2024-09-27] MEDS: HYDROcodone/APAP 5-325MG 1 EACH TAB PO PRN (18:51)
[2024-09-27] MEDS: lisinopriL 5 MG TAB PO SCH (20:08)
--- NOTE | 2024-09-27 23:34 | HP ---
HISTORY AND PHYSICAL CHIEF COMPLAINT: Chest pain and cough. HISTORY OF PRESENT ILLNESS: This 39-year-old woman with a past history of multiple medical problems including CAD, asthma, was complaining of chest pain in the anterior part of chest. The patient also has some cough, also COVID-19 is positive. The pain was felt anterior part diffusely at this time. There is no history of any fever, rigors, or chills at this time. PAST MEDICAL HISTORY: History of asthma, GERD, CAD stent, and cardiac ablation. Rest of the history and rest of the chart is also reviewed. HOME MEDICATIONS: Reviewed include Crestor. Dose and rest of medications reviewed. ALLERGIES: Codeine, rest of the allergies noted. FAMILY HISTORY: No history of heart disease or strokes in the family. SOCIAL HISTORY: History of vaping and THC. REVIEW OF SYSTEMS: Fourteen-point review is negative except as mentioned earlier. PHYSICAL EXAMINATION: VITAL SIGNS: Pulse 76, blood pressure 111/72, and respirations 18. HEENT: Conjunctivae normal. NECK: No JVD. CARDIOVASCULAR: S1, S2. RESPIRATIONS: Breath sounds diminished at the bases. A few scattered rhonchi. ABDOMEN: Soft and nontender. NERVOUS SYSTEM: Nonfocal. LABORATORY DATA: Reviewed. ASSESSMENT: 1. Chest pain, possible unstable angina. 2. Acute COVID-19 infection. 3. Elevated WBC. 4. Asthma. 5. Hypertension. 6. Hyperlipidemia. 7. History of cardiac ablation. 8. History of coronary artery disease stent. RECOMMENDATIONS AND DISCUSSION: This 39-year-old woman presented with multiple complex medical issues. We will monitor the patient closely. We will recommend to continue current medications. Recommend cardiology consultation. Rule out myocardial infarction. Symptomatic treatment. Chest x-ray has been reviewed and showed no acute abnormality. Also check inflammatory markers and continue to monitor. Guarded prognosis. Further recommendations to follow. MMODL / IJN: [id number] /
[2024-09-28] MEDS: MORPHINE SULFATE 2 MG/ML SYRINGE IVP PRN (00:14)
[2024-09-28] MEDS: METOPROLOL SUCCINATE (ER) 25 MG TAB.ER.24H PO SCH (07:57)
[2024-09-28] MEDS: ATORVASTATIN 20 MG TAB PO SCH (07:58)
[2024-09-28] MEDS ORDERED: NON FORMULARY DRUG (Omeprazole [Omeprazole] 20 MG Capsule.Dr) PO SCH (09:00)
[2024-09-28] MEDS ORDERED: ASPIRIN 325 MG TAB PO SCH (09:00)
[2024-09-28 09:30] LABS: BUN/Creat Ratio 31.14 Ratio (12.00-20.00); Blood Urea Nitrogen 21.8 mg/dL (9.0-27.0); Calcium 8.5 mg/dL (8.7-10.3); Carbon Dioxide 23.5 mmol/L (21.6-31.8); Chloride 107 mmol/L (96-109); Chol/HDL Ratio 3.09 Ratio; Glucose 131 mg/dL (70-110); LDL Cholesterol,Calculated 48.8 mg/dL (0.0-131.0); Potassium 3.6 mmol/L (3.5-5.5); Sodium 139 mmol/L (135-145)
[2024-09-28 09:41] LABS: Basophils # (A) 0.05 X 10*3/uL (0.00-0.10); Basophils % (A) 0.6 %; Eosinophils # (A) 0.17 X 10*3/uL (0.04-0.35); HGB 9.7 g/dL (12.0-15.0); Lymphocytes # (A) 3.35 X 10*3/uL (0.90-5.00); Lymphocytes % (A) 39.8 %; MCH 25.3 pg (27.0-32.0); MCHC 31.3 g/dL (32.0-37.0); MCV 80.7 FL (80.0-97.0); Mean Platelet Volume 11.2 FL (9.5-12.2); Monocytes # (A) 0.46 X 10*3/uL (0.20-1.00); Monocytes % (A) 5.5 %; NRBC Per 100 WBC 0 X 10*3/uL (0.00-0.01); Neutrophils # (A) 4.37 X 10*3/uL (1.80-7.70); Neutrophils % (A) 51.9 %; Platelet Count 386 X 10*3/uL (140-440); RBC 3.84 X 10*6/uL (4.10-5.20); RDW 16.4 % (11.5-14.5); WBC 8.42 X 10*3/uL (4.50-10.00)
--- NOTE | 2024-09-28 17:52 | PN ---
PROGRESS NOTE DATE OF SERVICE: 09/28/2024 This 39-year-old woman was admitted with acute COVID-19 and also had significant chest pain. No fever. No cough. PHYSICAL EXAMINATION: VITAL SIGNS: Pulse is 94, blood pressure ntd, respirations 15. CHEST: A few scattered rhonchi. ABDOMEN: Soft. NERVOUS SYSTEM: Nonfocal. LABS: Noted. D-dimer is normal. ASSESSMENT: 1. Chest pain, possibly unstable angina, possibly musculoskeletal. 2. Acute COVID-19 infection. 3. Elevated WBC. 4. Asthma. 5. Hypertension. 6. Hyperlipidemia. 7. History of cardiac ablation. RECOMMENDATIONS: Recommend to continue current medical management and symptomatic treatment. D- dimer is negative. I would recommend repeat labs. Continue the symptomatic treatment. Further recommendations to follow. MMELICEOL / IJN: [id number] / MTDD
--- NOTE | 2024-09-28 22:09 | P.CONS ---
History of Present Illness - Reason for Consult Consult date: 09/28/24 COVID-19 Requesting physician: Darlene Farley - Chief Complaint Chest pressure x 1 day - History of Present Illness Patient is a 39-year-old female with a past medical history significant for hypertension hyperlipidemia reflux osteoarthritis presenting to the hospital for evaluation of chest pressure that was radiating down both arms patient also complaining of a cough mild to moderate intensity but not bringing up any sputum no significant URI symptoms also complaining of some nausea but no vomiting no abdominal pain symptoms patient apparently has been diagnosed with the COVID-19 the day before presentation to the hospital patient on arrival to the ER was afebrile no fever have been recorded subsequently patient was not tachycardic hypotensive or hypoxic and is currently not requiring any supplemental oxygen she did have a white count of 13.8 on admission which is down to 8.42 creatinine has been normal electrolytes are normal liver enzymes normal patient did have a chest x-ray that was negative for acute cardiopulmonary disease process infectious disease was consulted today for COVID-19 Review of Systems Positive point and negatives has been mentioned in the HPI, complete review of systems was performed and all other systems are negative Past Medical History Past Medical History: Asthma, Chest Pain / Angina, GERD/Reflux, Hyperlipidemia, Hypertension, Osteoarthritis (OA) Additional Past Medical History / Comment(s): See Cardiology H&P. Hx polyne phritis & kidney failure, frequest UTI's, anemia, irregular heart beat. History of Any Multi-Drug Resistant Organisms: None Reported Past Surgical History: Cardiac Ablation, Cholecystectomy, Heart Catheterization With Stent Additional Past Surgical History / Comment(s): Cyst removed from right forearm and back. Past Anesthesia/Blood Transfusion Reactions: No Reported Reaction, Motion Sickness Additional Past Anesthesia/Blood Transfusion Reaction / Comm: Hard time waking up. Mom had trouble waking up. Date of Last Stent Placement:: 2021 Past Psychological History: ADD/ADHD, Anxiety, Depression Smoking Status: Vaper Past Alcohol Use History: Rare Additional Past Alcohol Use History / Comment(s): Down to 1 cigarette per day, started smoking at age 9. Past Drug Use History: Marijuana Additional Drug Use History / Comment(s): Marijuana use, twice per week. Hx of hydrocodone use, none in 2yrs. - Past Family History Mother Family Medical History: No Reported History Medications and Allergies Home Medications Medication Instructions Recorded Confirmed Type Aspirin [Adult Low Dose Aspirin EC] 81 mg PO DAILY 09/24/22 09/27/24 History Metoprolol Succinate (ER) [Toprol 12.5 mg PO DAILY 09/27/24 09/27/24 History Xl] Omeprazole 20 mg PO DAILY 09/27/24 09/27/24 History Rosuvastatin [Crestor] 10 mg PO DAILY 09/27/24 09/27/24 History lisinopriL [Zestril] 5 mg PO BID 09/27/24 09/27/24 History Allergies Allergy/AdvReac Type Severity Reaction Status Date / Time codeine Allergy Swelling , Verified 09/27/24 09:11 and generally did not feel well levofloxacin [From Levaquin] Allergy itching Verified 09/27/24 09:11 and did not feel well Penicillins Allergy Rash/Hives Verified 09/27/24 09:11 Sulfa (Sulfonamide Allergy Rash/Hives Verified 09/27/24 09:11 Antibiotics) and did not feel well sulfamethoxazole Allergy Itching Verified 09/27/24 09:11 [From Bactrim] trimethoprim [From Bactrim] Allergy Itching Verified 09/27/24 09:11 Physical Exam Vitals: Vital Signs Temp Pulse Pulse Resp BP BP BP 09/28/24 07:00 97.4 F L 94 15 102/67 09/28/24 00:18 97.9 F 95 18 107/82 09/27/24 18:36 100 15 106/64 09/27/24 18:12 89 18 111/87 09/27/24 15:00 73 16 102/65 09/27/24 14:00 93 16 121/81 09/27/24 13:00 113 H 18 127/67 09/27/24 12:00 89 18 104/66 Pulse Ox 09/28/24 07:00 97 09/28/24 00:18 97 09/27/24 18:36 100 09/27/24 18:12 99 09/27/24 15:00 100 09/27/24 14:00 98 09/27/24 13:00 99 09/27/24 12:00 97 Intake and Output 09/27/24 09/28/24 09/28/24 22:59 06:59 14:59 Intake Total 118 Balance 118 Intake: Oral 118 Other: Voiding Method Toilet Toilet Toilet # Voids 1 2 Weight 74.843 kg GENERAL DESCRIPTION: Middle-aged female lying in bed, no distress. No tachypnea or accessory muscle of respiration use. HEENT: Shows Pallor , no scleral icterus. Oral mucous membrane is dry. No pharyngeal erythema or thrush NECK: Trachea central, no thyromegaly. LUNGS: Unlabored breathing. Decreased intensity breath sounds. No wheeze or cr ackle. HEART: S1, S2, regular rate and rhythm. No loud murmur ABDOMEN: Soft, no tenderness , guarding or rigidity EXTREMITIES: No edema of feet. SKIN: No rash, no masses palpable. NEUROLOGICAL: The patient is awake, alert, oriented x3, mood and affect normal. Results CBC & Chem 7: 09/28/24 03:13 09/28/24 03:13 Labs: Abnormal Lab Results - Last 24 Hours (Table) 09/28/24 09/28/24 Range/Units 03:13 03:13 RBC 3.84 L (4.10-5.20) X 10*6/uL Hgb 9.7 L (12.0-15.0) g/dL Hct 31.0 L (37.2-46.3) % MCH 25.3 L (27.0-32.0) pg MCHC 31.3 L (32.0-37.0) g/dL RDW 16.4 H (11.5-14.5) % BUN/Creatinine Ratio 31.14 H (12.00-20.00) Ratio Glucose 131 H (70-110) mg/dL Calcium 8.5 L (8.7-10.3) mg/dL HDL Cholesterol 35.00 L (40.00-60.00) mg/dL Assessment and Plan (1) Allergy to multiple antibiotics Current Visit: Yes Status: Acute Code(s): Z88.1 - ALLERGY STATUS TO OTHER ANTIBIOTIC AGENTS SNOMED Code(s): 231703985 (2) Coronavirus infection Current Visit: No Status: Acute Code(s): B34.2 - CORONAVIRUS INFECTION, UNSPECIFIED SNOMED Code(s): 525830760 Plan: 1patient presented to hospital with chest pressure patient also have a cough but not bringing up any sputum patient did tested positive for COVID-19 however patient is currently not running any fever patient not hypoxic chest x-ray did not show any acute infiltrate more likely mild illness but no evidence of any COVID-pneumonia and treatment will be mostly supportive as the patient currently do not qualify for remdesivir or steroids at this point 2mild leukocytosis on admission subsequently resolved 3-we will add zinc ascorbic acid and heparin subcu 4-droplet isolation We will follow on clinical condition and cultures to further adjust medication if needed Thank you for this consultation we will follow the patient along with you Dictation was produced using [employer] dictation software. please excuse any grammatical, word or spelling errors. Time with Patient: Greater than 30
[2024-09-29 07:34] VITALS: BP 120/79; PULSE 94; TEMP 97.3
[2024-09-29] MEDS: ASCORBIC ACID 500 MG TAB PO SCH (09:17)
[2024-09-29] MEDS: HEPARIN SODIUM,PORCINE 5,000 UNIT/ML 1 ML VIAL SQ SCH (09:17)
[2024-09-29] MEDS: ZINC SULFATE 220 MG CAP PO SCH (09:17)
[2024-09-29 09:33] LABS: Basophils # (A) 0.04 X 10*3/uL (0.00-0.10); Basophils % (A) 0.4 %; Eosinophils # (A) 0.34 X 10*3/uL (0.04-0.35); Eosinophils % (A) 3.6 %; HCT 31.8 % (37.2-46.3); HGB 9.9 g/dL (12.0-15.0); Lymphocytes # (A) 3.08 X 10*3/uL (0.90-5.00); MCH 24.8 pg (27.0-32.0); MCHC 31.1 g/dL (32.0-37.0); MCV 79.7 FL (80.0-97.0); Monocytes % (A) 6.4 %; NRBC Per 100 WBC 0 X 10*3/uL (0.00-0.01); Neutrophils # (A) 5.22 X 10*3/uL (1.80-7.70); Neutrophils % (A) 56.2 %; Platelet Count 372 X 10*3/uL (140-440); RBC 3.99 X 10*6/uL (4.10-5.20); WBC 9.32 X 10*3/uL (4.50-10.00)
[2024-09-29 09:39] VITALS: RESP 16
[2024-09-29 10:27] LABS: BUN/Creat Ratio 25.67 Ratio (12.00-20.00); Blood Urea Nitrogen 15.4 mg/dL (9.0-27.0); Calcium 8.6 mg/dL (8.7-10.3); Carbon Dioxide 23.7 mmol/L (21.6-31.8); Chloride 106 mmol/L (96-109); Glucose 98 mg/dL (70-110); Potassium 3.9 mmol/L (3.5-5.5); Sodium 138 mmol/L (135-145)
--- NOTE | 2024-09-29 13:39 | P.PN ---
Subjective Progress Note Date: 09/29/24 Principal diagnosis: Reason for follow-up is COVID-19 Patient is a 39-year-old female with a past medical history significant for hypertension hyperlipidemia reflux osteoarthritis presenting to the hospital for evaluation of chest pressure patient did tested positive for COVID-19 prompted this consultation. On today's evaluation that is 09/29/2024,the patient remains to be afebrile, patient is on room air not requiring supplemental oxygen and denies any shortness of breath no chest pain or cough.Patient denies having any nausea or vomiting, no abdominal pain and no diarrhea, patient mention feeling better. Patient white count is 9.32, creatinine 0.6 Objective - Vital Signs Vital signs: Vital Signs Temp 97.3 F L 09/29/24 07:00 Pulse 94 09/29/24 08:00 Resp 16 09/29/24 08:00 BP 120/79 09/29/24 07:00 Pulse Ox 100 09/29/24 07:00 FiO2 Intake & Output 09/28/24 09/29/24 09/29/24 18:59 06:59 18:59 Intake Total 472 500 Balance 472 500 Intake: Oral 472 500 Other: Voiding Method Toilet Toilet Toilet # Voids 2 - Exam GENERAL DESCRIPTION: Middle-age female up in bed in no distress RESPIRATORY SYSTEM: Unlabored breathing , decreased breath sounds at bases HEART: S1 S2 regular rate and rhythm , ABDOMEN: Soft , no tenderness EXTREMITIES: No edema feet - Labs CBC & Chem 7: 09/29/24 04:50 09/29/24 04:50 Labs: Abnormal Lab Results - Last 24 Hours (Table) 09/29/24 09/29/24 Range/Units 04:50 04:50 RBC 3.99 L (4.10-5.20) X 10*6/uL Hgb 9.9 L (12.0-15.0) g/dL Hct 31.8 L (37.2-46.3) % MCV 79.7 L (80.0-97.0) FL MCH 24.8 L (27.0-32.0) pg MCHC 31.1 L (32.0-37.0) g/dL RDW 16.0 H (11.5-14.5) % BUN/Creatinine Ratio 25.67 H (12.00-20.00) Ratio Calcium 8.6 L (8.7-10.3) mg/dL Assessment and Plan (1) Allergy to multiple antibiotics Status: Acute Code(s): Z88.1 - ALLERGY STATUS TO OTHER ANTIBIOTIC AGENTS SNOMED Code(s): 428400538 (2) Coronavirus infection Status: Acute Code(s): B34.2 - CORONAVIRUS INFECTION, UNSPECIFIED SNOMED Code(s): 490338047 Plan: 1patient presented to hospital with chest pressure patient also have a cough but not bringing up any sputum patient did tested positive for COVID-19 however patient is currently not running any fever patient not hypoxic chest x-ray did not show any acute infiltrate more likely mild illness but no evidence of any COVID-pneumonia and treatment will be mostly supportive as the patient currently do not qualify for remdesivir or steroids at this point 2mild leukocytosis on admission subsequently resolved 3-patient has shown clinical improvement we will continue the current supportive zinc ascorbic acid and heparin subcu 4-droplet isolation x 5 days Dictation was produced using [employer] dictation software. please excuse any grammatical, word or spelling errors. Time with Patient: Less than 30
--- NOTE | 2024-09-30 10:58 | P.DS ---
Providers Date of admission: 09/27/24 01:34 Expected date of discharge: 09/29/24 Attending physician: Darlene Farley Consults: 09/27/24 01:34 Consult Physician Urgent Consulting Provider: Davidson Mcdowell Consult Reason/Comments: chest pain Do you want consulting provider notified?: Yes 09/28/24 10:48 Consult Physician Routine Consulting Provider: Felipe Weinstein Consult Reason/Comments: covid Do you want consulting provider notified?: Yes Primary care physician: Physician Nonstaff Hospital Course: Final diagnosis Chest pain, possible unstable angina, likely musculoskeletal, ACS ruled out Acute COVID-19 infection Leukocytosis, likely secondary to acute COVID-19 infection Asthma, not in exacerbation History of hypertension History of hyperlipidemia History of previous cardiac ablation GI prophylaxis DVT prophylaxis Full code Discharge disposition Patient is being discharged in a stable condition with guarded prognosis to home. Patient will follow-up with Dr. Cary in the outpatient setting upon discharge. Patient is to continue with current medications and supportive care with vitamin C and zinc and outpatient follow-up with cardiology to discuss outpatient stress testing as scheduled. Total time taken is greater than 35 minutes. Hospital course This is a 39year-old female who was recently admitted with chest pain and also found to have acute COVID-19 infection being closely monitored with infectious disease and cardiology following. Cardiology recommends to continue with current medication regimen outpatient follow-up with stress testing in the next few weeks once recovered from COVID. Patient to continue with supportive care of zinc and vitamin supplements and did not meet criteria for requiring remdesivir or steroid use. Patient is maintaining oxygen saturations above 95% on room air and denies any worsening shortness of breath. Patient has been cleared for discharge and patient would like to go home. Please refer to other consultation notes for further HPI. Currently no reports of chest pain, shortness of breath, or palpitations. Patient is afebrile. No reports of nausea or vomiting and patient is tolerating diet. Patient will be discharged home today. Guarded prognosis Physical exam: Gen: This is a 39-year-old female who is awake, alert and oriented x 3, well- developed, well-nourished HEENT: Head is atraumatic, normocephalic. Pupils equal, round. Sclerae is anicteric. NECK: Supple. No JVD. No lymphadenopathy. No thyromegaly. LUNGS: Diminished breath sounds bilaterally otherwise clear to auscultation. No wheezes or rhonchi. A few bronchial cough noted that is dry on exam no intercostal retractions. HEART: S1, S2 are muffled ABDOMEN: Soft. Bowel sounds are present. No masses. No tenderness. EXTREMITIES: No pedal edema. No calf tenderness. NEUROLOGICAL: Patient is awake, alert and oriented x3. Cranial nerves 2 through 12 are grossly intact. Please refer to medication reconciliation sheet for a list of medications. The impression and plan of care has been dictated by Jacklyn Hairston, Nurse Practitioner as directed. Dr. Miguelito MD I have performed a history and examination and MDM of this patient, discussed the same with the dictator, and agree with the dictator's assessment and plan as written ,documented as a scribe. Based on total visit time, I have performed more than 50% of the visit. Patient Condition at Discharge: Fair Plan - Discharge Summary New Discharge Prescriptions: New Nicotine 14Mg/24Hr Patch [Habitrol] 1 patch TRANSDERM DAILY #30 patch Ascorbic Acid [Vitamin C] 1,000 mg PO DAILY #60 tab Nitroglycerin Sl Tabs [Nitrostat] 0.4 mg SUBLINGUAL Q5M PRN #20 tab PRN Reason: Chest Pain Zinc Sulfate [Orazinc] 220 mg PO DAILY #15 cap Continue Aspirin [Adult Low Dose Aspirin EC] 81 mg PO DAILY lisinopriL [Zestril] 5 mg PO BID Omeprazole 20 mg PO DAILY Metoprolol Succinate (ER) [Toprol XL] 12.5 mg PO DAILY Rosuvastatin [Crestor] 10 mg PO DAILY Discharge Medication List Aspirin [Adult Low Dose Aspirin EC] 81 mg PO DAILY 09/24/22 [History] Metoprolol Succinate (ER) [Toprol XL] 12.5 mg PO DAILY 09/27/24 [History] Omeprazole 20 mg PO DAILY 09/27/24 [History] Rosuvastatin [Crestor] 10 mg PO DAILY 09/27/24 [History] lisinopriL [Zestril] 5 mg PO BID 09/27/24 [History] Ascorbic Acid [Vitamin C] 1,000 mg PO DAILY #60 tab 09/29/24 [Rx] Nicotine 14Mg/24Hr Patch [Habitrol] 1 patch TRANSDERM DAILY #30 patch 09/29/24 [ Rx] Nitroglycerin Sl Tabs [Nitrostat] 0.4 mg SUBLINGUAL Q5M PRN #20 tab 09/29/24 [Rx] Zinc Sulfate [Orazinc] 220 mg PO DAILY #15 cap 09/29/24 [Rx] Follow up Appointment(s)/Referral(s): Nonstaff,Physician [Primary Care Provider] - 1-2 days Gary Raphael MD [STAFF PHYSICIAN] - 1 Week Patient Instructions/Handouts: How To Wash Your Hands (GEN), Droplet Precautions (GEN), Face Coverings (Masks) and COVID-19 (DC) Activity/Diet/Wound Care/Special Instructions: Activity limited until follow-up Follow-up with primary care provider on discharge Follow-up with cardiology outpatient and schedule stress testing in the next few weeks Continue with current medications Continue with supportive care and monitor for any fevers Encourage fluids and rest Discharge Disposition: HOME SELF-CARE
== END 2024-09-29 11:35 | disposition home or self-care (01) ==
LOC: EC 22:45 → 6NMEDSUR 09-27 01:34
PROVIDERS: ADMIT Hospitalist; ATTEND Hospitalist
DX: R07.89 Other chest pain (principal); U07.1 COVID-19; I25.10 Atherosclerotic heart disease of native coronary artery without angina pectoris; M79.602 Pain in left arm; M79.601 Pain in right arm; J45.909 Unspecified asthma, uncomplicated; I10 Essential (primary) hypertension; E78.5 Hyperlipidemia, unspecified; K21.9 Gastro-esophageal reflux disease without esophagitis; M19.90 Unspecified osteoarthritis, unspecified site; R00.0 Tachycardia, unspecified; F17.290 Nicotine dependence, other tobacco product, uncomplicated; Z79.82 Long term (current) use of aspirin; Z79.02 Long term (current) use of antithrombotics/antiplatelets; Z79.899 Other long term (current) drug therapy; Z88.0 Allergy status to penicillin; Z88.1 Allergy status to other antibiotic agents; Z88.2 Allergy status to sulfonamides; Z88.5 Allergy status to narcotic agent; Z95.5 Presence of coronary angioplasty implant and graft; Z98.890 Other specified postprocedural states
CPT/HCPCS: 96376 ×2; 96372; 96361; 96374; 96375; 99285; 36415; 93005; 85379; 80061; 80053; 80048 ×2; 85652; 83735; 84484; 85025 ×3; 85610; 85730; 86140; 71046; G0378 ×3; S4990 ×3; J2270 ×3; J1644; J1171

== ENCOUNTER 2025-03-31 03:55 | Emergency (ER) | payer OTHER ==
[2025-03-31 04:06] VITALS: BP 158/110; PULSE 101; RESP 18; TEMP 97.6
--- NOTE | 2025-03-31 05:59 | ED ---
General Adult HPI - General Source: patient, RN notes reviewed, old records reviewed Mode of arrival: ambulatory <Vick Proctor - Last Filed: 03/31/25 07:35> <Freddy Blackman - Last Filed: 03/31/25 08:50> - General Chief complaint: Abdominal Pain Stated complaint: Lower Back and Abdominal Pain, Painful Urination Time Seen by Provider: 03/31/25 04:25 - History of Present Illness Initial comments: Patient is a 40-year-old female who presents emergency department complaining of abdominal pain. Has had dysuria, in addition to bilateral flank and back pain. States she has been feeling more lethargic lately as well. Symptoms have been ongoing for multiple days. Denies any obvious fevers. Denies any hematuria. Denies any significant nausea or vomiting or diarrhea or constipation. Denies vaginal discharge or bleeding. States she is not . Presents for further evaluation at this time. (Vick Proctor) - Related Data Home Medications Medication Instructions Recorded Confirmed Aspirin [Adult Low Dose Aspirin EC] 81 mg PO DAILY 09/24/22 09/27/24 Metoprolol Succinate (ER) [Toprol 12.5 mg PO DAILY 09/27/24 09/27/24 XL] Omeprazole 20 mg PO DAILY 09/27/24 09/27/24 Rosuvastatin [Crestor] 10 mg PO DAILY 09/27/24 09/27/24 lisinopriL [Zestril] 5 mg PO BID 09/27/24 09/27/24 Previous Rx's Medication Instructions Recorded Ascorbic Acid [Vitamin C] 1,000 mg PO DAILY #60 tab 09/29/24 Nicotine 14Mg/24Hr Patch [Habitrol] 1 patch TRANSDERM DAILY #30 patch 09/29/24 Nitroglycerin Sl Tabs [Nitrostat] 0.4 mg SUBLINGUAL Q5M PRN #20 tab 09/29/24 Zinc Sulfate [Orazinc] 220 mg PO DAILY #15 cap 09/29/24 Cephalexin [Keflex] 500 mg PO TID 10 Days #30 cap 03/31/25 Allergies Allergy/AdvReac Type Severity Reaction Status Date / Time codeine Allergy Swelling , Verified 03/31/25 04:06 and generally did not feel well levofloxacin [From Levaquin] Allergy itching Verified 03/31/25 04:06 and did not feel well Penicillins Allergy Rash/Hives Verified 03/31/25 04:06 Sulfa (Sulfonamide Allergy Rash/Hives Verified 03/31/25 04:06 Antibiotics) and did not feel well sulfamethoxazole Allergy Itching Verified 03/31/25 04:06 [From Bactrim] trimethoprim [From Bactrim] Allergy Itching Verified 03/31/25 04:06 Review of Systems ROS Other: All systems not noted in ROS Statement are negative. <Vick Proctor - Last Filed: 03/31/25 07:35> ROS Other: All systems not noted in ROS Statement are negative. <rFeddy Blackman Cassandra - Last Filed: 03/31/25 08:50> ROS Statement: Those systems with pertinent positive or pertinent negative responses have been documented in the HPI. Review of Systems: CONST: Denies fever EYES: Denies blurry vision ENT: Denies nasal congestion C/V: Denies Chest pain RESP: Denies shortness of breath GI: Endorses abdominal pain : Denies dysuria SKIN: Denies rash. MSK: Denies joint pain. NEURO: Denies headache (Vick Proctor) Past Medical History Past Medical History: Asthma, Chest Pain / Angina, GERD/Reflux, Hyperlipidemia, Hypertension, Osteoarthritis (OA) Additional Past Medical History / Comment(s): See Cardiology H&P. Hx polynephritis & kidney failure, frequest UTI's, anemia, irregular heart beat. History of Any Multi-Drug Resistant Organisms: None Reported Past Surgical History: Cardiac Ablation, Cholecystectomy, Heart Catheterization With Stent Additional Past Surgical History / Comment(s): Cyst removed from right forearm and back. Past Anesthesia/Blood Transfusion Reactions: No Reported Reaction, Motion Sickness Additional Past Anesthesia/Blood Transfusion Reaction / Comment(s): Hard time waking up. Mom had trouble waking up. Date of Last Stent Placement:: 2021 Past Psychological History: ADD/ADHD, Anxiety, Depression Smoking Status: Vaper Past Alcohol Use History: Rare Past Drug Use History: Marijuana - Past Family History Mother Family Medical History: No Reported History <Vick Proctor - Last Filed: 03/31/25 07:35> General Exam <Vick Proctor - Last Filed: 03/31/25 07:35> - General Exam Comments Initial Comments: General: Mild distress secondary to abdominal discomfort HEAD: Normal with no signs of head trauma. EYES: PERRLA, EOMI, conjunctiva normal, no discharge. ENT: Hearing grossly intact, normal oropharynx. RESPIRATORY: Clear breath sounds bilaterally. No wheezes, rales, or rhonchi. C/V: Regular rate and rhythm. S1 and S2 auscultated, no edema, peripheral pulses 2+ and intact throughout ABD: Abdomen soft, nondistended. Tender palpation primarily suprapubically with some radiation to bilateral flanks as well as primarily left CVA to percussion.. EXT: No obvious deformity SKIN: No rashes or lesions observed on exposed skin. NEURO: Alert and oriented x 4. (Vick Proctor) Course Vital Signs 03/31/25 03:58 Temperature 97.6 F Pulse Rate 101 H Respiratory 18 Rate Blood Pressure 158/110 O2 Sat by Pulse 100 Oximetry Medical Decision Making - Lab Data Result diagrams: 03/31/25 05:57 03/31/25 05:57 - EKG Data -: EKG Interpreted by Me <Vick Proctor - Last Filed: 03/31/25 07:35> - Lab Data Result diagrams: 03/31/25 05:57 03/31/25 05:57 <Freddy Blackman - Last Filed: 03/31/25 08:50> - Medical Decision Making Was pt. sent in by a medical professional or institution ([facility] Parr, [facility]IDGE MAINTAINER, urgent care, hospital, or longterm...) When possible be specific @ -No Did you speak to anyone other than the patient for history (EMS, parent, family, police, friend...)? What history was obtained from this source @ -No Did you review nursing and triage notes (agree or disagree)? Why? @ -I reviewed and agree with nursing and triage notes Were old charts reviewed (outside hosp., previous admission, EMS record, old EKG, old radiological studies, urgent care reports/EKG's, longterm records)? Report findings @ -No old charts were reviewed Differential Diagnosis (chest pain, altered mental status, abdominal pain women, abdominal pain men, vaginal bleeding, weakness, fever, dyspnea, syncope, headache, dizziness, GI bleed, back pain, seizure, CVA, palpatations, mental health, musculoskeletal)? @ -UTI, kidney stone, pyelonephritis. This list is not all-inclusive. EKG interpreted by me (3pts min.). @ -As above X-rays interpreted by me (1pt min.). @ -None done CT interpreted by me (1pt min.). @ -Pending U/S interpreted by me (1pt. min.). @ -None done What testing was considered but not performed or refused? (CT, X-rays, U/S, labs)? Why? @ -None What meds were considered but not given or refused? Why? @ -None Did you discuss the management of the patient with other professionals (professionals i.e. , PA, BRIDGE MAINTAINER, lab, RT, psych nurse, social science teacher, graphic coordinator, teacher, district resource officer, case technician)? Give summary @ -No Was smoking cessation discussed for >3mins.? @ -No Was critical care preformed (if so, how long)? @ -No Were there social determinants of health that impacted care today? How? ( Homelessness, low income, unemployed, alcoholism, drug addiction, transportation, low edu. Level, literacy, decrease access to med. care, [facility], rehab)? @ -No Was there de-escalation of care discussed even if they declined (Discuss DNR or withdrawal of care, Hospice)? DNR status @ -No What co-morbidities impacted this encounter? (DM, HTN, Smoking, COPD, CAD, Cancer, CVA, ARF, Chemo, Hep., AIDS, mental health diagnosis, sleep apnea, morbid obesity)? @ -None Was patient admitted / discharged? Hospital course, mention meds given and route, prescriptions, significant lab abnormalities, going to OR and other pertinent info. @ -Patient presents with dysuria, abdominal pain, flank pain, back pain. We will obtain CT imaging of the abdomen pelvis as well as abdominal labs. Patient was in agreement this plan. Symptomatically treated with IV fluids, Zofran, Protonix, ketorolac. Vitals are within acceptable limits. Screening EKG shows no signs of acute ischemia. Laboratory studies are rem arkable for what appears to be a UTI. CT imaging is pending. Patient signed out to Dr. Blackman pending results of imaging. Undiagnosed new problem with uncertain prognosis? @ -No Drug Therapy requiring intensive monitoring for toxicity (Heparin, Nitro, Insulin, Cardizem)? @ -No Were any procedures done? @ -No (Vick Proctor) CT of the abdomen pelvis was performed, negative for hydronephrosis, negative for obstructing stone, incidental findings. Patient will be started on oral antibiotics to cover urinary tract infection. (Freddy Blackman) - Lab Data Lab Results 03/31/25 03/31/25 03/31/25 Range/Units 05:57 05:57 05:57 WBC 8.15 (4.50-10.00) 10*3/uL RBC 4.64 (4.10-5.20) 10*6/uL Hgb 13.1 (12.0-15.0) g/dL Hct 39.2 (37.2-46.3) % MCV 84.5 (80.0-97.0) fL MCH 28.2 (27.0-32.0) pg MCHC 33.4 (32.0-37.0) g/dL Plt Count 304 (140-440) 10*3/uL MPV 10.6 (9.5-12.2) fL Immature Gran % (Auto) 0.2 % Neutrophils % 44.8 % Lymphocytes % 40.4 % Monocytes % 6.5 % Eosinophils % 7.5 % Basophils % 0.6 % Immature Gran # 0.02 (0.00-0.04) 10*3/uL Neutrophils # 3.65 (1.80-7.70) 10*3/uL Lymphocytes # 3.29 (0.90-5.00) 10*3/uL Monocytes # 0.53 (0.20-1.00) 10*3/uL Eosinophils # 0.61 H (0.04-0.35) 10*3/uL Basophils # 0.05 (0.00-0.10) 10*3/uL PT 11.0 (10.0-12.5) sec INR 1.0 (<1.2) APTT 22.9 (22.0-30.0) sec Sodium 139 (137-145) mmol/L Potassium 4.2 (3.5-5.1) mmol/L Chloride 107 (98-107) mmol/L Carbon Dioxide 21 L (22-30) mmol/L Anion Gap 11 mmol/L BUN 17 (7-17) mg/dL Creatinine 0.67 (0.52-1.04) mg/dL Est GFR (CKD-EPI)AfAm >90 (>60 ml/min/1.73 sqM) Est GFR (CKD-EPI)NonAf >90 (>60 ml/min/1.73 sqM) Glucose 101 H (74-99) mg/dL Plasma Lactic Acid [place] (0.7-2.0) mmol/L Calcium 9.6 (8.4-10.2) mg/dL Total Bilirubin 0.6 (0.2-1.3) mg/dL AST 33 (14-36) U/L ALT 19 (4-34) U/L Alkaline Phosphatase 48 (38-126) U/L Total Protein 7.4 (6.3-8.2) g/dL Albumin 4.7 (3.5-5.0) g/dL Amylase 40 (30-110) U/L Lipase 31 (23-300) U/L HCG, Qual Not Detected Urine Color Urine Appearance (Clear) Urine pH (5.0-8.0) Ur Specific [place] (1.001-1.035) Urine Protein (Negative) Urine Glucose (UA) (Negative) Urine Ketones (Negative) Urine Blood (Negative) Urine Nitrite (Negative) Urine Bilirubin (Negative) Urine Urobilinogen (<2.0) mg/dL Ur Leukocyte Esterase (Negative) Urine RBC (0-5) /hpf Urine WBC (0-5) /hpf Ur Squamous Epith Cells (0-4) /hpf Amorphous Sediment (None) /hpf Urine Bacteria (None) /hpf Hyaline Casts (0-2) /lpf Urine Mucus (None) /hpf Urine HCG, Qual (Not Detectd) 03/31/25 03/31/25 03/31/25 Range/Units 05:57 06:25 06:25 WBC (4.50-10.00) 10*3/uL RBC (4.10-5.20) 10*6/uL Hgb (12.0-15.0) g/dL Hct (37.2-46.3) % MCV (80.0-97.0) fL MCH (27.0-32.0) pg MCHC (32.0-37.0) g/dL Plt Count (140-440) 10*3/uL MPV (9.5-12.2) fL Immature Gran % (Auto) % Neutrophils % % Lymphocytes % % Monocytes % % Eosinophils % % Basophils % % Immature Gran # (0.00-0.04) 10*3/uL Neutrophils # (1.80-7.70) 10*3/uL Lymphocytes # (0.90-5.00) 10*3/uL Monocytes # (0.20-1.00) 10*3/uL Eosinophils # (0.04-0.35) 10*3/uL Basophils # (0.00-0.10) 10*3/uL PT (10.0-12.5) sec INR (<1.2) APTT (22.0-30.0) sec Sodium (137-145) mmol/L Potassium (3.5-5.1) mmol/L Chloride (98-107) mmol/L Carbon Dioxide (22-30) mmol/L Anion Gap mmol/L BUN (7-17) mg/dL Creatinine (0.52-1.04) mg/dL Est GFR (CKD-EPI)AfAm (>60 ml/min/1.73 sqM) Est GFR (CKD-EPI)NonAf (>60 ml/min/1.73 sqM) Glucose (74-99) mg/dL Plasma Lactic Acid [place] 1.1 (0.7-2.0) mmol/L Calcium (8.4-10.2) mg/dL Total Bilirubin (0.2-1.3) mg/dL AST (14-36) U/L ALT (4-34) U/L Alkaline Phosphatase (38-126) U/L Total Protein (6.3-8.2) g/dL Albumin (3.5-5.0) g/dL Amylase (30-110) U/L Lipase (23-300) U/L HCG, Qual Urine Color Yellow Urine Appearance Cloudy H (Clear) Urine pH 6.0 (5.0-8.0) Ur Specific [place] 1.032 (1.001-1.035) Urine Protein Trace H (Negative) Urine Glucose (UA) Negative (Negative) Urine Ketones Negative (Negative) Urine Blood Negative (Negative) Urine Nitrite Positive H (Negative) Urine Bilirubin Negative (Negative) Urine Urobilinogen <2.0 (<2.0) mg/dL Ur Leukocyte Esterase Large H (Negative) Urine RBC 4 (0-5) /hpf Urine WBC 55 H (0-5) /hpf Ur Squamous Epith Cells 12 H (0-4) /hpf Amorphous Sediment Occasional H (None) /hpf Urine Bacteria Many H (None) /hpf Hyaline Casts 7 H (0-2) /lpf Urine Mucus Many H (None) /hpf Urine HCG, Qual Not Detected (Not Detectd) - EKG Data EKG Comments: 12-lead Electrocardiogram Interpretation Note EKG was reviewed and interpreted by myself. 12-lead ECG performed at 4 5 is interpreted by me as revealing normal sinus rhythm at a rate of 84 beats per minute. [place] is normal. NM interval is 150 ms, QRS duration is 98 ms, QTc is 406 ms.. There were no ST or T wave abnormalities to suggest myocardial ischemia or injury. R wave progression across the precordium was satisfactory. By my interpretation this EKG is non-diagnostic for acute ischemia. (Vick Proctor) Disposition <Vick Proctor - Last Filed: 03/31/25 07:35> Is patient prescribed a controlled substance at d/c from ED?: No Time of Disposition: 08:48 <Freddy Blackman - Last Filed: 03/31/25 08:50> Clinical Impression: UTI (urinary tract infection), Abdominal pain Disposition: HOME SELF-CARE Condition: Fair Instructions (If sedation given, give patient instructions): Abdominal Pain (ED), Urinary Tract Infection in Women (DC) Prescriptions: Cephalexin [Keflex] 500 mg PO TID 10 Days #30 cap Referrals: None,Stated [Primary Care Provider] - 1-2 days
[2025-03-31] MEDS: PANTOPRAZOLE 40 MG/10 ML VIAL IVP STA (06:00)
[2025-03-31] MEDS: KETOROLAC 15 MG/ML 1 ML VIAL IVP STA (06:00)
[2025-03-31] MEDS: ONDANSETRON 4 MG/2 ML VIAL IVP STA (06:02)
[2025-03-31] MEDS: LACTATED RINGERS 1,000 ML IV ONE (06:05)
[2025-03-31 06:22] LABS: Basophils # (A) 0.05 10*3/uL (0.00-0.10); Basophils % (A) 0.6 %; Eosinophils # (A) 0.61 10*3/uL (0.04-0.35); Eosinophils % (A) 7.5 %; HCT 39.2 % (37.2-46.3); HGB 13.1 g/dL (12.0-15.0); Lymphocytes # (A) 3.29 10*3/uL (0.90-5.00); Lymphocytes % (A) 40.4 %; MCH 28.2 pg (27.0-32.0); MCHC 33.4 g/dL (32.0-37.0); MCV 84.5 fL (80.0-97.0); Mean Platelet Volume 10.6 fL (9.5-12.2); Monocytes # (A) 0.53 10*3/uL (0.20-1.00); Monocytes % (A) 6.5 %; Neutrophils # (A) 3.65 10*3/uL (1.80-7.70); Neutrophils % (A) 44.8 %; Platelet Count 304 10*3/uL (140-440); RBC 4.64 10*6/uL (4.10-5.20); RDW 13.9 % (11.5-14.5); WBC 8.15 10*3/uL (4.50-10.00)
[2025-03-31 06:31] LABS: Partial Thromboplastin Time 22.9 sec (22.0-30.0)
[2025-03-31 06:36] LABS: ALT 19 U/L (4-34); African American GFR (CKD) >90 (>60 ml/min/1.73 sqM); Amylase 40 U/L (30-110); Anion Gap 11 mmol/L; Blood Urea Nitrogen 17 mg/dL (7-17); Calcium 9.6 mg/dL (8.4-10.2); Carbon Dioxide 21 mmol/L (22-30); Chloride 107 mmol/L (98-107); Glucose 101 mg/dL (74-99); Lipase 31 U/L (23-300); Non-African American GFR(CKD) >90 (>60 ml/min/1.73 sqM); Sodium 139 mmol/L (137-145); Total Bilirubin 0.6 mg/dL (0.2-1.3)
[2025-03-31 06:37] LABS: AST 33 U/L (14-36); Albumin 4.7 g/dL (3.5-5.0); Alkaline Phosphatase 48 U/L (38-126); Potassium 4.2 mmol/L (3.5-5.1); Total Protein 7.4 g/dL (6.3-8.2)
[2025-03-31 06:48] LABS: HCG,Qualitative Serum Not Detected
[2025-03-31 06:57] LABS: Amorphous Sediment,Urine Occasional /hpf; Appearance,Urine Cloudy (Clear); Bacteria,Urine Many /hpf; Bilirubin,Urine Negative (Negative); Blood,Urine Negative (Negative); Color,Urine Yellow; Glucose,Urine (UA) Negative (Negative); Hyaline Casts,Urine 7 /lpf (0-2); Ketones,Urine Negative (Negative); Leukocyte Esterase,Urine Large (Negative); Mucus,Urine Many /hpf; Nitrite,Urine Positive (Negative); Protein,Urine Trace (Negative); RBC,Urine 4 /hpf (0-5); Specific Gravity,Urine 1.032 (1.001-1.035); Squamous Epithelial Cell,Urine 12 /hpf (0-4); Urobilinogen,Urine <2.0 mg/dL (<2.0); WBC,Urine 55 /hpf (0-5)
--- NOTE | 2025-03-31 08:30 | CT ---
EXAMINATION TYPE: CT abdomen pelvis w con DATE OF EXAM: 03/31/2025 8:10 AM COMPARISON: None. CLINICAL INDICATION: Female, 40 years old with history of bilateral flank pain/back pain. dysuria; Bi lateral flank pain/back pain, dysuria TECHNIQUE: Axial CT abdomen pelvis w con;Sagittal and coronal reformats were created on a separate w orkstation. Contrast used:100 ml mL of Isovue 300 with IV Contrast, ( CT DLP: 1147.1 mGycm, Automated exposure control for dose reduction was used. FINDINGS: LOWER CHEST: Some patchy opacity inferior lingula probably atelectasis. ABDOMEN LIVER: Some focal fat along the intervals from ligament. Portal venous system is patent. GALLBLADDER AND BILE DUCTS: Gallbladder surgically absent. Bile duct mildly dilated at 7 mm probably due to postcholecystectomy status. PANCREAS: Unremarkable. SPLEEN: Borderline enlarged at 13.6 cm. Hilar splenule. ADRENAL GLANDS: Unremarkable. KIDNEYS AND URETERS: Cortical cyst anterior mid right kidney measuring 1.7 cm. Extrarenal pelvis on t he right. Symmetric uptake and excretion of contrast bilaterally. No renal stones are seen. PELVIS BLADDER: Mild circumferential wall thickening. REPRODUCTIVE: Prominent in size measuring 10.5 cm long. Thin-walled peripherally enhancing cyst of th e right ovary measuring 1.9 cm. High density 1.8 cm nodule left adnexa. A trace left adnexal and cul-de-sac free fluid. ABDOMEN & PELVIS STOMACH AND BOWEL: No evidence of bowel obstruction. Normal appendix. Mild overall stool burden. PERITONEUM/RETROPERITONEUM: No evidence of pneumoperitoneum or free fluid. VASCULATURE: No evidence of aortic aneurysm. MUSCULOSKELETAL: No acute osseous abnormalities LYMPH NODES: Prominent 1.1 cm right lower quadrant mesenteric lymph nodes probably reactive/post infl ammatory. SOFT TISSUE/ABDOMINAL WALL: 2.4 cm cystic lesion right paramedian epigastric region just deep to the skin surface. IMPRESSION: 1. Some patchy atelectasis versus early infiltrate at the inferior lingula. Correlate for any respir atory symptoms. 2. No nephrolithiasis or hydronephrosis. 3. Mild circumferential bladder wall thickening may be chronic for the patient. Correlate to exclude cystitis. 4. Bulky appearing uterus. There is either a 1.8 cm corpus luteum or a recently ruptured follicle of the right ovary and suspected 1.8 cm hemorrhagic cyst of the left ovary. Trace left adnexal and cul-d e-sac free fluid. Consider ultrasound follow-up in 6-8 weeks to reassess. 5. Suspect a 2.4 cm sebaceous cyst right paramedian epigastric region. [facility], Workstation: [facility], 03/31/2025 8:27 AM
[2025-03-31] MEDS: cefTRIAXone IN SWFI 1,000 MG/10 ML SYRINGE IVP STA (09:14)
== END 2025-03-31 09:27 | disposition home or self-care (01) ==
LOC: EC 03:55
DX: N39.0 Urinary tract infection, site not specified (principal); R10.9 Unspecified abdominal pain; F17.290 Nicotine dependence, other tobacco product, uncomplicated; Z88.0 Allergy status to penicillin; Z88.1 Allergy status to other antibiotic agents; Z88.2 Allergy status to sulfonamides; Z88.8 Allergy status to other drugs, medicaments and biological substances
CPT/HCPCS: 36415; 93005; 80053; 82150; 83605; 83690; 85025; 85610; 85730; 81001; 81025; 84703; 87086; 87077; 87186; 74177; 99284; 96374; 96375; 96361; J2405; J0696; J1885; Q9967; J2470